=== PATIENT | female | born 1950 | race Caucasian/White ===

== ENCOUNTER 2018-01-25 15:01 | Outpatient (REF) | payer MEDICARE, SELFPAY | END 2018-01-25 15:21 | LOC: LBN 15:01 | PROVIDERS: PCP Nurse Practitioner; Visit Provider Nurse Practitioner | DX: R30.9 Painful micturition, unspecified (principal) | CPT/HCPCS: 87077; 87086; 87186 ==

== ENCOUNTER 2018-02-02 09:09 | Outpatient (CLI) | payer MEDICARE, SELFPAY ==
[2018-02-02 09:28] LABS: HCT 39.8 % (36.0-46.0); HGB 12.9 g/dL (12.0-15.5); Mean Corp. HGB Concentration 32.4 g/dL (32.0-36.0); Mean Corpuscular Hemoglobin 31.1 pg (27.0-33.0); Mean Corpuscular Volume 95.9 fL (80-95); Platelet Count 295 x1000/uL (130-400); RBC 4.15 m/cumm (4.00-5.20); RBC Distribution Width 14.7 % (11.7-14.6); White Blood Cell Count 8.34 k/cumm (4.4-10.8)
[2018-02-02 10:21] LABS: ALT 14 U/L (12-78); AST 15 U/L (15-37); Albumin 3.5 g/dL (3.4-5.0); Alkaline Phosphatase 79 U/L (46-116); Anion Gap 9.5 mmol/L (3-11); BUN 21 mg/dL (7-18); Bilirubin, Total 0.4 mg/dL (0.2-1.0); CO2 25.5 mmol/L (21.0-32.0); CREATININE 1.17 mg/dL (0.55-1.02); Calcium 9.5 mg/dL (8.5-10.1); Chloride 104 mmol/L (98-107); Cholesterol 224 mg/dL (50-200); Glucose 86 mg/dL (70-100); HDL Cholesterol 45 mg/dL (40-60); LDL CHOLESTEROL 160 mg/dL (<100); Potassium 4.1 mmol/L (3.5-5.1); Sodium 139 mmol/L (136-145); Total Protein 7.3 g/dL (6.4-8.2); Triglyceride 132 mg/dL (30-150)
== END 2018-02-02 09:29 ==
PROVIDERS: PCP Nurse Practitioner; Visit Provider Nurse Practitioner
DX: Z72.0 Tobacco use (principal); R79.9 Abnormal finding of blood chemistry, unspecified; R05 Cough; Z13.220 Encounter for screening for lipoid disorders
CPT/HCPCS: 36415; 80053; 80061; 83721; 85027

== ENCOUNTER 2020-11-20 10:55 | Outpatient (CLI) | payer MEDICARE, SELFPAY ==
--- NOTE | 2020-11-20 10:52 | DI.CT_ITS ---
Exam(s) CT HEAD WO EXAM: CT HEAD WO CLINICAL HISTORY: vision CHANGES, memory diff, change in walking, ? CVA,HYPERLIPIDEMIA. TECHNIQUE: Imaging Protocol: Axial computed tomography images with coronal and sagittal reformatted images were created and reviewed COMPARISON: No exams were available for comparison FINDINGS: Ventricles and Extra axial spaces: Normal in size and morphology for the patient's age. Hemorrhage: None. Cerebral parenchyma: 9 millimeter rounded focus centered in the left basal ganglia with significant s urrounding edema and mild [id number] midline shift. Edema extends into the left temporal and andrés etal regions. There is also abnormal edema versus extension of mass into the midbrain on the left is and question of extension into left side of the ramon. No additional masses are seen. There is no e vidence of hemorrhage. There is atrophy and white matter changes of microvascular disease. Calvarium: Normal. Visualized Paranasal sinuses/Mastoids: Clear. Soft Tissues: Unremarkable. IMPRESSION: infiltrative mass centered in the left basal ganglia with edema versus tumor invasion into the midbr ain and ramon. Contrast-enhanced brain MRI is recommended for further evaluation. RADIATION DOSE DELIVERED: 625.34mGy.cm Total DLP DATA REPOSITORY: All CT scans at this facility are submitted to the National Radiology Data Registry (NRDR) Dose Index Registry (DIR) with the [employer] (ACR). RADIATION OPTIMIZATION: All CT scans at this facility use at least one of these dose optimization te chniques: automated exposure control; mA and/or kV adjustment per patient size (includes targeted exa ms where dose is matched to clinical indication); or iterative reconstruction.
== END 2020-11-20 11:15 ==
PROVIDERS: PCP Nurse Practitioner; Visit Provider Nurse Practitioner
DX: E78.5 Hyperlipidemia, unspecified (principal); R29.818 Other symptoms and signs involving the nervous system; Z72.0 Tobacco use; R93.0 Abnormal findings on diagnostic imaging of skull and head, not elsewhere classified
CPT/HCPCS: 70450

== ENCOUNTER 2020-11-20 12:15 | Outpatient (REF) | payer MEDICARE, SELFPAY ==
[2020-11-20 14:19] LABS: Abs Immature Grans 0.03 10^3/uL (0.0-0.06); Absolute Basophil Count 0.09 10^3/uL (0.0-0.2); Absolute Eosinophil Count 0.21 10^3/uL (0.0-0.7); Absolute Lymphocyte Count 1.45 10^3/uL (1.2-3.4); Absolute Monocyte Count 0.52 10^3/uL (0.1-0.8); Absolute Neutrophil Count 6.74 10^3/uL (1.2-6.7); Eosinophils % 2.3; HCT 40.7 % (36.0-46.0); HGB 13.4 g/dL (11.2-15.7); Immature Grans % 0.3; MCH 31.8 pg (27.0-33.0); MCHC 32.9 % (32.0-36.0); MCV 96.4 fL (80-95); Monocytes % 5.8; Neutrophils % 74.6; Nucleated RBC 0 %; Platelet Count 321 10^3/uL (130-400); RBC 4.22 10^6/uL (3.93-5.22); RDW 13.8 % (11.7-14.6); RDW-SD 48.6 fL; WBC 9.04 10^3/uL (4.4-10.8)
[2020-11-20 14:33] LABS: ALT 25 U/L (14-59); AST 21 U/L (15-37); Albumin 3.8 g/dL (3.4-5.0); Alkaline Phosphatase 84 U/L (46-116); Anion Gap 11.4 mmol/L (3-11); BUN 19 mg/dL (7-18); Bilirubin, Total 0.4 mg/dL (0.2-1.0); CO2 26.6 mmol/L (21.0-32.0); CREATININE 1.2 mg/dL (0.55-1.02); Calcium 9.5 mg/dL (8.5-10.1); Calculated LDL 136 mg/dL (<100); Chloride 105 mmol/L (98-107); Cholesterol 214 mg/dL (<200); Estimated GFR 44.29 (mL/min/1.73m2); Glucose 91 mg/dL (74-106); HDL Cholesterol 53 mg/dL (40-60); Potassium 4.4 mmol/L (3.5-5.1); Sodium 143 mmol/L (136-145); Total Protein 7.3 g/dL (6.4-8.2); Triglyceride 127 mg/dL (<150)
== END 2020-11-20 12:16 | disposition home or self-care (01) ==
LOC: LBN 12:15
PROVIDERS: PCP Nurse Practitioner; Visit Provider Nurse Practitioner
DX: R29.818 Other symptoms and signs involving the nervous system; Z13.220 Encounter for screening for lipoid disorders; Z72.0 Tobacco use; E78.5 Hyperlipidemia, unspecified; R31.9 Hematuria, unspecified
CPT/HCPCS: 80053; 80061; 85025; 87086

== ENCOUNTER 2020-12-16 09:36 | Observation (INO) | payer MEDICARE, SELFPAY ==
[2020-12-16] VITALS (61 sets, daily range): BP systolic 71–136; BP diastolic 48–73; PULSE 57–85; RESP 12–43; TEMP 35.9–36.6; O2SAT 85–98
--- NOTE | 2020-12-16 09:30 | RT.EKG_ITS ---
APPROVED REPORT Exam: Resting ECG Reason for Exam: sob, chest pain Patient Location: E HR:77 bpm ECG Measurements Heart Rate 77 AXIS [place] 176 P 74 QRSd 102 QRS 22 QT 367 T 40 QTc 417 Conclusion Sinus rhythm...normal P axis, V-rate 60- 99
--- NOTE | 2020-12-16 09:42 | W.ED.GENAD ---
Discharge Plan Discharge Details Chief Complaint: RespSymp Admit Date/Time: 12/16/20 13:17 Admit Provider: Garret Troy Attending Provider: Garret Troy Primary Care Provider: Stacie Bullock ED Provider: Rosalba Mo Discharge Data Discharge Date/Time-TO BE ENTERED AT DEPARTURE: 12/16/20 14:24 Medical Decision Making Patient is a pleasant 70-year-old female presenting today with chief complaint of right sided upper back pain and shortness of breath. States that she awoke with this this morning. Patient is currently being worked up for recent cancer diagnosis. Plan is for her to start treatment soon. She reports that she is not had pain like this historically. She denies any chest pain. Denies radiation of pain. She denies any dizziness or lightheadedness. Patient denies any abdominal pain. Denies any nausea, vomiting. No change in bowel or urinary habits. She denies any recent fevers or chills. Reports that she has a chronic smoker's cough. Patient is an active smoker. On exam, patient appears acute on chronically ill. She is hypertensive at 92/61. She typically runs low with systolic around 100. She is denying feeling dizzy at this time. She does appear tachycardic. She is maintaining her oxygen well with an O2 of 97% on room air. Her lung sounds are clear. She does not have any crepitus. She has discomfort with palpation along the thoracic spine. More towards the right side than the left. Not appreciate any evidence of acute trauma. No deformity is notable. She is 2+ distal pulses in all extremities. No abdominal pain on exam. Reviewed recent note from [facility]. Patient has been diagnosed with malignant neoplasm of the head, face, neck. Recently had biopsy of the mass on 12/10/20. Patient did reach out to [facility] 2 days ago and reported increased headache after cessation of recent dosing of steroids. Patient was restarted on the steroids and has had 2 days of dosing. Diagnosis differential at this time quite broad. With her recent biopsy, I am considering a pneumothorax and will obtain a bedside x-ray. Also considered COVID-19, patient is not vaccinated. Considered metastatic disease with her midline spinal tenderness. She has good distal pulses, no chest pain, my suspicion for a dissection is lower. With her recent cancer diagnosis and shortness of breath, as well as her being an active smoker, I am also concerned for potential PE. Also considered pneumonia or mass in her lung. Spoke with patients Vidal, [id number]. DAughter was also present. SBP in the 80s, will give IV bolus. With her recent pause of steroids, also considered this part of her hypotension, Will give IV steroids as well. BP responding well. Consulted with radiologist. Patient has bilateral PE. Aortic aneurysm 3.6. Large mass in left mid lung with concerns for areas consistent with metastasis. This was off of the T&L recons, the formal CT of chest has not yet been read. Will send images to [facility] and request consultation with neurosurgery. Patient needs to be anticoagulated but concerned with mass in brain for increased risk for ICH so will consult prior to starting anticoagulation. Updated . Consulted Dr. Schwarz with neurosurgery at [facility]. We discussed presentation, exam, history. He reviewed recent MRI. He advised that recent literature suggest safe to do buttermaker helper anticoagulation. He advised Heparin drip without the load. Bring up to therapeutic level. Advised this would be safest, readily reversible. Discussed risks/benefits and plan with patient. She voices understanding and is in agreement with this plan. in agreement as well. Dr. Schwarz called back. LMWH may be as effective. However, recommends continuing with plan already set forth. Consulted with Dr. Troy regarding admission, he agrees to admission. HPI General Mode of arrival: wheelchair. Date/Time Provider Initiated Documentation: 12/16/20 09:39. Limitations to Documentation: altered mental status (patient has baseline confusion). Information obtained by: patient, family, RN notes reviewed and old records reviewed. History of Present Illness 70 year old F presents to the emergency department with the chief complaint of right sided posterior chest pain, SOB, described as moderate, Quality is described as aching, and is localized to the back (upper back). Patient reports no radiation. Patient started experiencing this hour(s) (awoke with symptoms this AM) and it has been constant. No relieving factors improve symptom(s), Other factors that worsen symptoms (deep inspiration, palpation, movement) . Patient notes confusion (has had confusion for 1mo, no acute change), cough (reports, smokers cough), malaise and shortness of breath; denies chest pain, diaphoresis, fever/chills, headaches (ARMSTRONG improved with beginning steroids again 2 days ago), nausea/vomiting, rash and syncope. Patient did receive the following treatments prior to arrival, none Related Data Home Medications Medication Instructions Recorded Confirmed ibuprofen 800 mg PO PRN 08/23/13 12/16/20 Probio 5 PO ONCE 11/20/20 11/20/20 bio cleanse PO BID 11/20/20 11/20/20 multivitamin 1 tab PO DAILY 11/20/20 12/16/20 naproxen sodium 220 mg capsule 220 mg PO BID PRN 11/20/20 12/16/20 dexamethasone 2 mg PO DAILY 12/16/20 Allergies Allergy/AdvReac Type Severity Reaction Status Date / Time No Known Drug Allergies Allergy Verified 12/16/20 10:18 Review of Systems Constitutional Constitutional: Reports as per HPI, Denies chills and Denies fever(s) ENT Ears, Nose, Mouth, and Throat: Denies dizziness Cardiovascular Cardiovascular: Reports as per HPI, Denies chest pain, Denies lightheadedness, Reports dyspnea and Reports dyspnea on exertion Respiratory Respiratory: Reports as per HPI, Denies chest congestion, Denies hemoptysis, Reports pain on inspiration, Reports pain with cough, Reports dyspnea, Reports dyspnea on exertion and Denies wheezing Gastrointestinal Gastrointestinal: Reports as per HPI, Denies abdominal pain, Denies diarrhea, Denies nausea and Denies vomiting Musculoskeletal Musculoskeletal: Reports as per HPI and Reports back pain Integumentary/Breasts Skin/Breast: Reports as per HPI and Denies rash Neurologic Neurologic: Reports as per HPI and Denies dizziness Allergic/Immunologic Allergic/Immunologic: Denies wheezing [facility] Medical History Hyperlipidemia Neurological deficit present Social History Smoking/Tobacco Use Status: Current every day Tobacco Type: cigarettes Smoking risk assessment performed?: Yes Alcohol Intake: former Drug use: Never Substance use type: does not use Housing: house Working smoke detector in home: Yes Fire extinguisher in home: Yes Carbon monox detector in home: Yes Do you feel safe at home: Yes Do you feel safe in your relationship?: Yes Exam Const General: cooperative, comfortable, well developed, anxious and ill appearing acutely and chronically Nutritional Appearance: average body habitus and well nourished Orientation: alert, awake, oriented x3 and confused (seems intermittent, overall very appropriate) [facility] Mouth: mucous membranes dry (appears dry) Chest Chest: normal inspection of the chest, normal palpation of entire chest wall and no crepitus Resp Effort & Inspection: normal respiratory effort, able to speak in complete sentences and no respiratory distress Auscultation: clear to auscultation bilaterally, no rales, no rhonchi and no wheezes Cardio Rate: regular rate Rhythm: regular rhythm Heart Sounds: S1 normal and S2 normal GI Inspection: normal to inspection, no edema and non-distended Palpation: soft, no hepatosplenomegaly, not firm, no guarding, not rigid and nontender Auscultation: normal bowel sounds Back/Spine/Pelvis Back: no CVA tenderness Thoracic/Lumbar Spine: thoracic and lumbar spine normal to inspection and thoracic spinal tenderness (diffuse discomfort with palpation) Skin General skin exam: no rashes or lesions noted Trauma: no lacerations or abrasions Neuro General: patient alert, patient awake and patient oriented x3 Cognition: normal cognition Speech: speech normal Gait: normal gait Extrem General: normal to inspection, capillary refill normal, no pedal edema, no calf tenderness and normal gait Psych Appearance: grossly normal and well kempt Mental Status: mental status grossly normal Speech and Movement: speech and movement normal
--- NOTE | 2020-12-16 10:00 | DI.CT_ITS ---
Exam(s) CT CHEST PE ABD PELVIS W EXAM: CT CHEST PE ABD PELVIS W CLINICAL HISTORY: right sided back pain, SOB. TECHNIQUE: Imaging Protocol: Axial CT angiography was performed with multi-slice acquisition and m ulti-planar and/or 3D reconstructions. CONTRAST MATERIAL: Intravenous: Omnipaque 350 Contrast volume:100 ml Oral: None COMPARISON: CT ABD PELVIS WITH CONTRAST from 01/14/2012 CR,XR XR PORTABLE CHEST AP from 12/16/2020 CR,XR XR PORTABLE CHEST AP from 12/16/2020 FINDINGS: CHEST: PULMONARY ARTERIES: There are multiple intraluminal filling defects within right lung pulmonary arter ies consistent with pulmonary emboli. The largest of these is in the distal right main pulmonary art sandra. This is not occlusive. No saddle emboli. LUNGS: There is a lobulated malignant-appearing mass extending from the left hilum out to the left up per lobe pleural surface. This corresponds to what was seen on chest x-ray earlier today. There is no pneumothorax (apparently recent biopsy). Mild increased interstitial peripheral infiltrates bilat erally. There are no pleural effusions. No findings in the trachea and mainstem bronchi. MEDIASTINUM: There is left hilar adenopathy and there is adenopathy in the aortopulmonic window. The re also appears to be subcarinal adenopathy. Also mild adenopathy in the right hilum. Visualized th yroid unremarkable. CARDIAC: Heart size is normal. There is no pericardial effusion. There is no significant shift of t he interventricular septum.Caliber of the thoracic aorta is within normal limits. OSSEOUS: No significant osseous lesions.. ABDOMEN: There is no ascites. LIVER: There are no focal hepatic lesions nor dilatation of intrahepatic ducts. GALLBLADDER/BILIARY: No obvious gallbladder pathology. CBD is not dilated. PANCREAS: No evidence of pancreatic mass nor dilatation of the pancreatic duct. SPLEEN: Spleen is not enlarged. There are no intrasplenic lesions. Splenic and portal veins are soliz nt. ADRENALS: There are no significant adrenal masses. KIDNEYS:There is a round 2.4 x 2.4 cm cyst off the inferior pole of the left kidney. A tiny 4 millim eter cortical cyst is noted posteriorly in the right kidney. No solid renal masses. No calculi. No hydronephrosis nor hydroureter. No obvious abnormality in the urinary bladder no calculi nor hydron ephrosis. No solid renal masses. ABDOMINAL AORTA: Atherosclerotic. There is a fusiform infrarenal abdominal aortic aneurysm which exh ibits maximum external diameter of 3.2 cm. Mild arterial megaly evident in the proximal right common iliac artery which exhibits diameter 1.3 cm. There is no dilatation of the distal common iliac haile roya nor of the external iliac arteries and no aneurysms evident in common femoral arteries. LYMPH NODES: There is no retroperitoneal or para-aortic adenopathy. ABDOMINAL WALL/GI: No evidence of significant anterior abdominal wall hernia. No bowel obstruction. PELVIS: LYMPH NODES: There is no intrapelvic nor inguinal adenopathy. GI: No evidence of appendicitis.No evidence of sigmoid diverticulitis. URINARY BLADDER: No calculi nor masses evident REPRODUCTIVE: Uterus and adnexal regions appear age-appropriate. OSSEOUS: No significant osseous lesions. Advanced disc space narrowing at L5-S1 level. Mild retrolisthesis of L1 upon L2. IMPRESSION: 1. There are acute pulmonary emboli noted, mostly right-sided. No evidence of pulmonary infarction. 2. Large malignant-appearing mass in the left lung extending from the hilum out to the left upper lob e pleural surface. This is associated with ipsilateral hilar and aortopulmonic window adenopathy. N o pleural effusion. 3. No evidence of metastatic disease within the abdomen and pelvis nor osseous metastatic disease. 4. 3.2 cm infrarenal abdominal aortic aneurysm. Also mild aneurysmal dilatation of the proximal righ t common iliac artery which exhibits diameter 1.3 cm. 5. Benign 2.4 cm cyst in the inferior pole of the left kidney. RADIATION DOSE DELIVERED: Total DLP DATA REPOSITORY: All CT scans at this facility are submitted to the National Radiology Data Registry (NRDR) Dose Index Registry (DIR) with the [employer] (ACR). RADIATION OPTIMIZATION: All CT scans at this facility use at least one of these dose optimization te chniques: automated exposure control; mA and/or kV adjustment per patient size (includes targeted exa ms where dose is matched to clinical indication); or iterative reconstruction.
[2020-12-16 10:06] LABS: Lactate 1.8 mmol/L (0.6-1.4)
[2020-12-16 10:07] LABS: Abs Immature Grans 0.05 10^3/uL (0.0-0.06); Absolute Basophil Count 0.09 10^3/uL (0.0-0.2); Absolute Eosinophil Count 0.31 10^3/uL (0.0-0.7); Absolute Monocyte Count 0.74 10^3/uL (0.1-0.8); Absolute Neutrophil Count 10.24 10^3/uL (1.2-6.7); Basophils % 0.7; Eosinophils % 2.3; HCT 38.6 % (36.0-46.0); HGB 12.7 g/dL (11.2-15.7); Immature Grans % 0.4; Lymphocytes % 14.6; MCH 32.2 pg (27.0-33.0); MCHC 32.9 % (32.0-36.0); MPV 9.5 fL (8.0-11.0); Monocytes % 5.5; Neutrophils % 76.5; Nucleated RBC 0 %; Platelet Count 266 10^3/uL (130-400); RBC 3.94 10^6/uL (3.93-5.22); RDW 13.7 % (11.7-14.6); RDW-SD 49.4 fL; WBC 13.39 10^3/uL (4.4-10.8)
[2020-12-16 10:10] LABS: Source Nasal/Nares
[2020-12-16 10:10] LABS: Absolute Lymphocyte Count 1.95 10^3/uL (1.2-3.4)
--- NOTE | 2020-12-16 10:18 | DI.RAD_ITS ---
Exam(s) XR PORTABLE CHEST AP EXAM: XR PORTABLE CHEST AP CLINICAL HISTORY: SOB, recent bx of left ,lung. TECHNIQUE: 2D digital imaging was performed. COMPARISON: CR CHEST 2 VIEWS PA,LAT from 11/05/2010 CR LEFT SHOULDER COMPLETE from 09/28/2017 CR LEFT SHOULDER COMPLETE from 09/28/2017 FINDINGS: Chest leads in place. Heart size is normal.. The mediastinum is not widened. Right lung is clear. There is infiltrate in the left parahilar region. No pleural effusion. No pne umothorax. IMPRESSION: Left parahilar infiltrate. Appropriate follow-up recommended. DATA REPOSITORY: RADIATION DOSE DELIVERED: All CT scans at this facility use at least one of these dose optimization techniques: automated exposure control; mA and/or kV adjustment per patient size (includes targeted e xams where dose is matched to clinical indication); or iterative reconstruction.
[2020-12-16 10:21] LABS: PTT Activated 21.2 sec (21.0-27.5); Prothrombin Time 9.9 sec (9.3-11.0)
[2020-12-16] MEDS: Lactated Ringers 1,000 ML 1000 ML IV (10:23)
[2020-12-16 10:24] LABS: ALT 20 U/L (14-59); AST 13 U/L (15-37); Alkaline Phosphatase 131 U/L (46-116); Anion Gap 8.4 mmol/L (3-11); BUN 24 mg/dL (7-18); Bilirubin, Total 0.3 mg/dL (0.2-1.0); CO2 29.6 mmol/L (21.0-32.0); CREATININE 1.2 mg/dL (0.55-1.02); Calcium 9.4 mg/dL (8.5-10.1); Chloride 105 mmol/L (98-107); Estimated GFR 44.29 (mL/min/1.73m2); Glucose 116 mg/dL (74-106); Potassium 3.4 mmol/L (3.5-5.1); Sodium 143 mmol/L (136-145); Total Protein 7.4 g/dL (6.4-8.2); Troponin I < 0.05 ng/mL (<0.06)
--- NOTE | 2020-12-16 10:38 | DI.VRAD_ITS ---
PROCEDURE INFORMATION: Exam: XR Chest Exam date and time: 12/16/2020 9:52 AM Age: 70 years old Clinical indication: Shortness of breath; Patient HX: SOB. Recent left lung biopsy 12/10/20 - RT sided chest pain TECHNIQUE: Imaging protocol: XR of the chest. Views: 1 view. COMPARISON: CR LEFT SHOULDER COMPLETE 28/09/2017 11:27 FINDINGS: Scan quality: Exam is technically satisfactory. Lungs: There is an approximately 3.5 cm somewhat ill-defined nodular density just lateral to the left hilum. Reportedly, this has been recently biopsied. The lungs otherwise show some coarsened interstitial markings especially in the bases but no definite focal infiltrate. Pleural spaces: No pleural effusion or pneumothorax is evident. Heart/Mediastinum: Cardiomediastinal silhouette is normal. Vasculature: Aorta is tortuous. Bones/joints: Unremarkable. IMPRESSION: Left lung mass. No other new acute abnormality. Dictated and Authenticated by: Silver Chauhan MD. Ordering:TERESA Navarrete MD
[2020-12-16 11:03] LABS: COVID-19 PCR Negative (Negative)
[2020-12-16] MEDS: Omnipaque 350 MG/ML 100 ML BTL 94 ML IJ (11:11)
[2020-12-16] MEDS: Normal Saline - Diluent 50 ML VIAL IV (11:11)
[2020-12-16] MEDS: Normal Saline Flush 10 ML SYR IVP ×3 (11:12→19:55)
[2020-12-16] MEDS: methylPREDNISolone SUCC 125 MG VIAL 60 MG IVP (11:15)
--- NOTE | 2020-12-16 12:04 | DI.VRAD_ITS ---
Addendum created by Silver Chauhan MD on 12/16/2020 12:07:09 PM EDT: THIS REPORT CONTAINS FINDINGS THAT MAY BE CRITICAL TO PATIENT CARE. The findings were verbally communicated by me to MUNA ZHU via telephone conference at 12:06 PM EDT on 12/16/2020. The findings were acknowledged and understood. Initial report created on 12/16/2020 12:03:55 PM EDT: PROCEDURE INFORMATION: Exam: CT Thoracic Spine Without Contrast Exam date and time: 12/16/2020 10:37 AM Age: 70 years old Clinical indication: Other: SOB, right back pain, concerned for mets TECHNIQUE: Imaging protocol: Computed tomography images of the thoracic spine without contrast. Radiation optimization: All CT scans at this facility use at least one of these dose optimization techniques: automated exposure control; mA and/or kV adjustment per patient size (includes targeted exams where dose is matched to clinical indication); or iterative reconstruction. COMPARISON: No relevant prior studies available. FINDINGS: Vertebrae: No focal lytic or sclerotic lesions are seen within the vertebral bodies or the posterior elements to suggest bony metastatic disease. Mild disc space narrowing is present at multiple levels. There are anterior osteophytes but no posterior osteophytes impinge upon the spinal canal. In the posterior column facet joints are normally aligned without significant degenerative change. Discs/Spinal canal/Neural foramina: See Vertebrae finding. Soft tissues: There is no paraspinal soft tissue mass. Vasculature: Pulmonary arteries demonstrate filling defects bilaterally consistent with pulmonary embolus. Lungs: The included lungs show a large mass in the left mid lung with hilar adenopathy. IMPRESSION: 1. No evidence of bony metastatic disease to the thoracic spine. 2. Large mass in the left mid lung. 3. Pulmonary arterial filling defects indicative of pulmonary embolus. PROCEDURE INFORMATION: Exam: CT Lumbar Spine Without Contrast Exam date and time: 12/16/2020 10:37 AM Age: 70 years old Clinical indication: Other: SOB, right back pain, concerned for mets TECHNIQUE: Imaging protocol: Computed tomography images of the lumbar spine without contrast. Radiation optimization: All CT scans at this facility use at least one of these dose optimization techniques: automated exposure control; mA and/or kV adjustment per patient size (includes targeted exams where dose is matched to clinical indication); or iterative reconstruction. COMPARISON: No relevant prior studies available. FINDINGS: Vertebrae: Lumbar vertebrae are normal in height and alignment with no fracture. Schmorl's node is noted in the inferior endplate of L1. There are no focal lytic lesions within lumbar vertebrae to suggest bony metastatic disease. Facet joints are normally aligned with moderate degenerative changes. Discs/Spinal canal/Neural foramina: No significant disc protrusion. No severe spinal canal stenosis. No significant neural foraminal narrowing. Sacrum/coccyx: Visualized portion of sacrum and coccyx are normal. SI joints are normal. Soft tissues: Extensive atherosclerotic disease and ectasia of the aorta is present with aneurysmal dilatation to a diameter of 3.4 cm. IMPRESSION: 1. No evidence of metastatic disease to the lumbar spine. 2. Aneurysmal dilatation of the aorta to 3.4 cm. Dictated and Authenticated by: Silver Chauhan MD. Ordering:TERESA Navarrete MD
[2020-12-16] MEDS: ACETAMINOPHEN 1,000 MG/100 ML BTL 400 MG IVPB (12:13)
[2020-12-16 12:18] LABS: Bilirubin Negative (Negative); Blood Trace-intact (Negative); Clarity Clear (Clear); Glucose Negative (Negative); Ketones Negative (Negative); Leukocyte Esterase Negative (Negative); Nitrite Negative (Negative); Specific Gravity 1.015 (1.005-1.025); Urobilinogen 0.2 EU/dL (Up TO 0.2)
--- NOTE | 2020-12-16 12:19 | DI.VRAD_ITS ---
PROCEDURE INFORMATION: Exam: CTA Chest With Contrast Exam date and time: 12/16/2020 10:10 AM Age: 70 years old Clinical indication: Right-sided; Patient HX: RT sided back pain. S/P left lung biopsy 12/10/20. HX brain CA TECHNIQUE: Imaging protocol: Computed tomographic angiography of the chest with contrast. 3D rendering (Not supervised by radiologist): MIP and/or 3D reconstructed images were created by the technologist. Radiation optimization: All CT scans at this facility use at least one of these dose optimization techniques: automated exposure control; mA and/or kV adjustment per patient size (includes targeted exams where dose is matched to clinical indication); or iterative reconstruction. Contrast material: OMNI 350; Contrast volume: 100 ml; Contrast route: INTRAVENOUS (IV); COMPARISON: CR XR PORTABLE CHEST AP 12/16/2020 10:03 FINDINGS: Pulmonary arteries: There are filling defects within multiple pulmonary arteries bilaterally consistent with pulmonary embolus. The largest is at the bifurcation of the right main pulmonary artery. Aorta: Unremarkable. No aortic aneurysm. No aortic dissection. Lungs: In the left mid lung there is a large lobulated mass measuring about 3.4 cm in diameter. Extensive scarring and fibrosis is seen elsewhere throughout both lungs. Pleural spaces: Unremarkable. No pneumothorax. No pleural effusion. Heart: Unremarkable. No cardiomegaly. No pericardial effusion. Lymph nodes: There is extensive adenopathy in the left hilum and AP window with confluent nodes in the AP window measuring 4.5 cm. Bones/joints: Unremarkable. No acute fracture. Soft tissues: Unremarkable. IMPRESSION: 1. There is acute pulmonary embolus bilaterally. 2. There is a 3.4 cm mass in the left mid lung with associated hilar and AP window adenopathy. PROCEDURE INFORMATION: Exam: CT Abdomen And Pelvis With Contrast Exam date and time: 12/16/2020 10:10 AM Age: 70 years old Clinical indication: Right-sided; Patient HX: RT sided back pain. S/P left lung biopsy 12/10/20. HX brain CA TECHNIQUE: Imaging protocol: Computed tomography of the abdomen and pelvis with contrast. Radiation optimization: All CT scans at this facility use at least one of these dose optimization techniques: automated exposure control; mA and/or kV adjustment per patient size (includes targeted exams where dose is matched to clinical indication); or iterative reconstruction. Contrast material: OMNI 350; Contrast volume: 100 ml; Contrast route: INTRAVENOUS (IV); COMPARISON: CR XR PORTABLE CHEST AP 12/16/2020 10:03 FINDINGS: Liver: Normal. No mass or intrahepatic biliary ductal dilatation. Gallbladder and bile ducts: Normal. No calcified stones. No ductal dilation. Pancreas: Normal. No mass or ductal dilation. Spleen: Normal. No splenomegaly. Adrenal glands: Normal. No mass. Kidneys and ureters: Normal. No hydronephrosis, calculus, mass. There is a 2.7 cm cyst at the lower pole of the left kidney. Stomach and bowel: Unremarkable. No significant dilatation or obstruction. No mucosal thickening or visible mass. Appendix: No evidence of appendicitis. Intraperitoneal space: Unremarkable. No free air. No significant fluid collection. Vasculature: Aorta is heavily atherosclerotic with a fusiform aneurysm of the mid aorta measuring 3.4 cm. Lymph nodes: No enlarged retroperitoneal or mesenteric lymph nodes. Urinary bladder: No mass or wall thickening. Reproductive: Unremarkable as visualized. Bones/joints: Unremarkable. No acute fracture. No lytic lesion. Soft tissues: Unremarkable. IMPRESSION: 3.4 cm abdominal aortic aneurysm. No evidence of metastatic disease within the abdomen or pelvis. Findings were discussed by telephone with Dr. Mo at 11:10 a.m. on 12/16/2020. Dictated and Authenticated by: Silver Chauhan MD. Ordering:TERESA Navarrete MD
--- NOTE | 2020-12-16 12:24 | DI.CT_ITS ---
Exam(s) CT THORACIC LUMBAR SPINE REC EXAM: CT THORACIC LUMBAR SPINE REC CLINICAL HISTORY: recons please, concern for mets TECHNIQUE: COMPARISON: CT ABD PELVIS WITH CONTRAST from 01/14/2012 FINDINGS: THORACIC SPINAL COLUMN: There are no compression fractures nor listhesis. No lytic nor blastic osseous lesions identified. LUMBOSACRAL SPINAL COLUMN: There are no compression fractures nor listhesis. Advanced disc space narrowing at L5-S1 level noted . Mild disc space narrowing at L1-2 and mild retrolisthesis of L1 upon L2. Also degenerative disc d isease at T11-T12 and T12-L1 There are no lytic nor blastic osseous lesions identified in the lumbosacral spinal column. There de generative facet changes but no facet malalignment. Mild scoliosis convex left. IMPRESSION: No evidence of osseous metastatic disease in the thoracolumbar spinal column.
[2020-12-16 12:29] LABS: Bacteria Negative HPF (Negative); C & S Indicated? No; Casts Negative LPF (Negative); Crystals Negative HPF (Negative); Epithelial Cells Negative HPF (Negative); Mucus Negative (Negative); WBC 0-2 HPF (0-5)
[2020-12-16 13:34] LABS: Troponin I < 0.05 ng/mL (<0.06)
--- NOTE | 2020-12-16 14:13 | HPE_ITS ---
Date of service: 12/16/20 Time of Service: 14:13 Assessment and Plan Assessment and plan (1) Pulmonary embolism: Status: Chronic Assessment and plan: Unfractionated heparin continuous infusion, monitor for any bleeding. If patient has no acute bleeding or neurologic event from heparinization and will plan for transition to Lovenox therapy with follow-up with her oncologist and neurosurgeon. Qualifiers: Pulmonary embolism type: multiple subsegmental (without acute cor pulmonale) Qualified Code(s): I26.94 - Multiple subsegmental pulmonary emboli without acute cor pulmonale (2) Brain mass: Status: Acute Assessment and plan: patient had been on oral steroids for her brain mass and was tapered off but when she developed recent headaches, she was put back on oral steroids. I will treat her w/ decadron 6 mg iv tonight and put her back on oral steroids (she was on decadron 2 mg orally daily). She does not appear to be on any prophylactic AED. She has no hx of seizures, however she ought to be on prophylaxis. I will initiate Keppra w/ bolus 1000 mg tonight then 500 mg bid beginning tommorrow. (3) Mass of left lung: Status: Acute Assessment and plan: need to get results of recent biopsy form [facility]. she should follow w/ oncology upon discharge who can then manage her anticoagulation in coordination w/ her neurosurgeon. History of Present Illness History of Present Illness Chief Complaint: Left-sided pleuritic chest pain Narrative: 70-year-old female smoker recently diagnosed with lung cancer and found to have brain metastasis presents to emergency department with acute onset of pleuritic chest pain. CT of the chest demonstrated Multiple luminal filling defects in the right lung pulmonary arteries consistent with p ulmonary emboli the largest in the distal right main pulmonary artery with no saddle block emboli and no evidence of right ventricular strain. CT also showed large malignant appearing mass in the left lung extending from the hilum out to the left upper lobe pleural surface with ipsilateral hilar and aortopulmonary window adenopathy. No evidence of metastatic disease within the abdomen or pelvis and no osseous metastatic disease was seen. 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 Dedicated thoracic and lumbar CT scan of the spine was done and showed no ev idence of osseous metastatic disease. ER personnel spoke with Dr. Schwarz from neurosurgery at [facility] to discuss safety of anticoagulation in the setting of brain metastasis. He reviewed the images and discuss case with SAMARA Oliver from [facility] emergency department. He felt the safest course of action be to admit the patient on observation status and heparinize her with unfractionated heparin and if she has no neurologic bleed from this then she can be discharged home on Lovenox. Review of Systems All systems reviewed & are unremarkable except as noted in HPI and below [facility] Medical History Hyperlipidemia Neurological deficit present Social History Smoking/Tobacco Use Status: Current every day Tobacco Type: cigarettes Smoking risk assessment performed?: Yes Alcohol Intake: former Drug use: Never Substance use type: does not use Housing: house Working smoke detector in home: Yes Fire extinguisher in home: Yes Carbon monox detector in home: Yes Do you feel safe at home: Yes Do you feel safe in your relationship?: Yes Meds Allergies and Home Medications Allergies Allergy/AdvReac Type Severity Reaction Status Date / Time No Known Drug Allergies Allergy Verified 12/16/20 10:18 Home Medications Medication Instructions Recorded Confirmed Type ibuprofen 800 mg PO PRN 08/23/13 12/16/20 History Varicella-Zoster Ge/As01b/Pf 50 mcg IM ONCE #1 kit 07/13/17 02/22/18 Clinic [Shingrix Vial Kit] Probio 5 PO ONCE 11/20/20 11/20/20 History bio cleanse PO BID 11/20/20 11/20/20 History multivitamin 1 tab PO DAILY 11/20/20 12/16/20 History naproxen sodium 220 mg capsule 220 mg PO BID PRN 11/20/20 12/16/20 History dexamethasone 2 mg PO DAILY 12/16/20 History Exam Narrative Exam Narrative: Elderly white female who appears to be a poor historian is difficult to get the timing of when her lung biopsy was obtained and the diagnosis of lung cancer was made but apparently this was done through [facility]. I was not able to access records. She is alert and seems to be answering questions appropriately she is able to tell me that the onset of her chest discomfort was around 10 AM this morning. She had trouble sleeping last night went back to sleep early this morning and then woke up mid morning complaining of the chest pain. She has had no fever no chills and no cough. HEENT is remarkable for upper dentures and poor lower dentition. She has no facial asymmetry no dysarthric speech full extraocular motions intact pupils are midpoint and equally reactive to direct and consensual light visual mendez grossly intact Neck is supple no JVD normal carotid pulses no bruits no thyromegaly no cervical lymphadenopathy no supraclavicular adenopathy Lungs are clear with diffusely diminished breath sounds no rhonchi wheezes or rales Heart regular rate and rhythm without murmur rub or gallop. Abdomen soft and nontender no organomegaly no bruits Lower extremities without peripheral cyanosis or edema no calf tenderness or swelling normal pedal pulses no cyanosis. Neuro exam reveals no focal cranial nerve deficits no facial asymmetry no dysarthric speech she has normal facial mimetic muscle movement she has normal movement of her palate and her tongue. Extraocular motions intact. Visual mendez grossly intact. Normal range of motion and strength in both upper and lower extremities. Sensory exam intact to light touch. Results Labs Result diagrams: 12/16/20 10:00 12/16/20 10:00 Labs: Laboratory Results - last 24 hr 12/16/20 12/16/20 12/16/20 10:00 10:00 10:00 WBC 13.39 H RBC 3.94 Hgb 12.7 Hct 38.6 MCV 98.0 H MCH 32.2 MCHC 32.9 RDW 13.7 Plt Count 266 MPV 9.5 Immature Gran % 0.4 Neutrophils % 76.5 Lymphocytes % 14.6 Monocytes % 5.5 Eosinophils % 2.3 Basophils % 0.7 Nucleated RBC % 0 Absolute Neutrophils 10.24 H Absolute Lymphocytes 1.95 Absolute Monocytes 0.74 Absolute Eosinophils 0.31 Absolute Basophils 0.09 PT INR APTT VBG Lactate 1.8 H Sodium 143 Potassium 3.4 L Chloride 105 Carbon Dioxide 29.6 Anion Gap 8.4 BUN 24 H Creatinine 1.2 H Estimated GFR/1.73 m2 44.29 Glucose 116 H Calcium 9.4 Total Bilirubin 0.3 AST 13 L ALT 20 Alkaline Phosphatase 131 H Troponin I < 0.05 Total Protein 7.4 Albumin 3.0 L Urine Color Urine Clarity Urine pH Ur Specific [place] Urine Protein Urine Ketones Urine Blood Urine Nitrite Urine Bilirubin Urine Urobilinogen Ur Leukocyte Esterase Urine RBC Urine WBC Ur Epithelial Cells Urine Crystals Urine Bacteria Urine Casts Urine Mucus Ur Culture Indicated? Urine Glucose COVID-19 Source SARS-CoV-2 (PCR) 12/16/20 12/16/20 12/16/20 10:00 10:07 12:10 WBC RBC Hgb Hct MCV MCH MCHC RDW Plt Count MPV Immature Gran % Neutrophils % Lymphocytes % Monocytes % Eosinophils % Basophils % Nucleated RBC % Absolute Neutrophils Absolute Lymphocytes Absolute Monocytes Absolute Eosinophils Absolute Basophils PT 9.9 INR 1.0 APTT 21.2 VBG Lactate Sodium Potassium Chloride Carbon Dioxide Anion Gap BUN Creatinine Estimated GFR/1.73 m2 Glucose Calcium Total Bilirubin AST ALT Alkaline Phosphatase Troponin I Total Protein Albumin Urine Color Yellow Urine Clarity Clear Urine pH 7.0 Ur Specific [place] 1.015 Urine Protein Negative Urine Ketones Negative Urine Blood Trace-intact H Urine Nitrite Negative Urine Bilirubin Negative Urine Urobilinogen 0.2 Ur Leukocyte Esterase Negative Urine RBC 3-5 H Urine WBC 0-2 Ur Epithelial Cells Negative Urine Crystals Negative Urine Bacteria Negative Urine Casts Negative Urine Mucus Negative Ur Culture Indicated? No Urine Glucose Negative COVID-19 Source Nasal/Nares SARS-CoV-2 (PCR) Negative 12/16/20 13:00 WBC RBC Hgb Hct MCV MCH MCHC RDW Plt Count MPV Immature Gran % Neutrophils % Lymphocytes % Monocytes % Eosinophils % Basophils % Nucleated RBC % Absolute Neutrophils Absolute Lymphocytes Absolute Monocytes Absolute Eosinophils Absolute Basophils PT INR APTT VBG Lactate Sodium Potassium Chloride Carbon Dioxide Anion Gap BUN Creatinine Estimated GFR/1.73 m2 Glucose Calcium Total Bilirubin AST ALT Alkaline Phosphatase Troponin I < 0.05 Total Protein Albumin Urine Color Urine Clarity Urine pH Ur Specific [place] Urine Protein Urine Ketones Urine Blood Urine Nitrite Urine Bilirubin Urine Urobilinogen Ur Leukocyte Esterase Urine RBC Urine WBC Ur Epithelial Cells Urine Crystals Urine Bacteria Urine Casts Urine Mucus Ur Culture Indicated? Urine Glucose COVID-19 Source SARS-CoV-2 (PCR) Last Vital Signs Temp 36.6 C 12/16/20 12:28 Pulse 65 12/16/20 12:28 Resp 20 12/16/20 12:28 BP 106/73 12/16/20 12:28 Pulse Ox 96 12/16/20 12:28
[2020-12-16] MEDS: Dexamethasone 10 MG/ML VIAL IVP (14:56)
--- NOTE | 2020-12-16 18:26 | NUR.NOTE ---
Nursing Note: Spoke with Mirella's this evening, wondering how she is doing. Advised she is settled in her room, not having any pain, ate her dinner and watching TV. transferred to room to talk to her. This nurse ensured she was able to get to the phone.
[2020-12-16] MEDS: levETIRAcetam 1,000 MG in Normal Saline 100 ML 400 MG IVPB (19:53)
[2020-12-16 20:22] LABS: PTT Activated 37.3 sec (21.0-27.5)
[2020-12-17 04:00] VITALS: BP 94/49; PULSE 69; RESP 16; TEMP 35.7; O2SAT 100
[2020-12-17 04:14] LABS: PTT Activated 77.5 sec (21.0-27.5)
[2020-12-17] MEDS: Acetaminophen 325 MG TAB PO ×2 (05:41→15:12)
[2020-12-17 06:57] LABS: HCT 34.5 % (36.0-46.0); HGB 11.5 g/dL (11.2-15.7); MCH 31.8 pg (27.0-33.0); MCHC 33.3 % (32.0-36.0); MCV 95.3 fL (80-95); Platelet Count 255 10^3/uL (130-400); RBC 3.62 10^6/uL (3.93-5.22); RDW 13.7 % (11.7-14.6); RDW-SD 48.6 fL; WBC 10.85 10^3/uL (4.4-10.8)
[2020-12-17 07:45] VITALS: BP 102/64; PULSE 72; RESP 17; TEMP 35.7; O2SAT 98
[2020-12-17] MEDS: Dexamethasone 1 MG TAB 2 MG PO (08:27)
[2020-12-17] MEDS: Multivitamin TAB 1 TAB PO (08:27)
[2020-12-17] MEDS: levETIRAcetam 500 MG TAB PO ×2 (08:27→20:04)
--- NOTE | 2020-12-17 09:35 | DI.US_ITS ---
APPROVED REPORT EXAM: Comprehensive 2D, Doppler, and color-flow Echocardiogram Patient Location: In-Patient Room/Bed: [address] Specialist: Arielle Carmichael RDCS (AE) Indications: PE, Evaluate RV function, Chest pain, Lung CA Other Information Study Quality: Good Conclusion Normal left ventricular chamber size and wall thickness. Estimated ejection fraction is 65 to 70%. There are no segmental wall motion abnormalities Normal right ventricular size and systolic function Both atria are normal in size The aortic valve is trileaflet with trace to mild regurgitation. No aortic stenosis Normal mitral valve with trace regurgitation Normal tricuspid valve with mild regurgitation. Estimated right ventricular systolic pressure is nor mal at 28 mmHg Normal pulmonic valve with trace regurgitation Minimally dilated ascending aorta Wall motion Left Ventricle The left ventricle is normal size. The left ventricular systolic function is normal. The left ventric ular ejection fraction is within the normal range. There is normal left ventricular wall thickness. T here is normal LV segmental wall motion. There is no ventricular septal defect visualized. LVEF is 67 %. Right Ventricle Right ventricle is mildly dilated. The right ventricular systolic function is normal. The RVSP is 28. 1mmHg. Atria The left atrium size is normal. Right atrium is borderline dilated. The interatrial septum is intact with no evidence for an atrial septal defect. Aortic Valve The aortic valve is normal in structure. Aortic valve is trileaflet. There is no aortic valvular sten osis. Trace to mild aortic regurgitation. Mitral Valve The mitral valve is normal in structure. No evidence of mitral valve stenosis. Trace mitral regurgita tion. Tricuspid Valve The tricuspid valve is normal in structure. There is no tricuspid valve stenosis. Mild tricuspid regu rgitation. Pulmonic Valve The pulmonary valve is normal in structure. There is no pulmonic valvular stenosis. Trace pulmonic re gurgitation. Great Vessels The aortic root is normal in size. The ascending aorta is mildly dilated. Aortic arch is not well vis ualized. The IVC collapses <50% with inspiration. Pericardium There is no pericardial effusion. 2D Dimensions IVSD d PLAX 0.91 cm F: 0.6-1.0 LV Vol A2C d MOD 53.2 mL LVPW d PLAX 0.93 cm F: 0.6 - 1.0 LV Vol A4C d MOD 66.2 mL LVID d PLAX 4.33 cm F: 3.8 - 5.2 LA vol/ BSA A2C s A-L 20.7 mL/m2 LVDs 2.60 cm F: 2.2 - 3.5 LA vol/ BSA A4C s A-L 21.5 mL/m2 Ao Root d 2.82 cm F: 2.7 - 3.3 LA Vol/ BSA Biplane s A-L 21.5 mL/m2 RA Area A4C 9.13 cm2 LA Area A4C s MOD 14.72 cm2 RA Vol/ BSA A4C s A-L 11.8 mL/m2 LA Area A2C s MOD 14.14 cm2 Ao Asc Diam d 3.46 cm F: 2.3 - 3.1 LV EF A4C MOD 68.8 % LV EF Teichholz 70.5 % LV EF A2C MOD 65.6 % LVEF (Sim's) 66.29 % F: 54 - 74 LV EF Biplane MOD 66.3 % LV Volume 48.02 mL F: 46 - 106 SV 39.41 mL LV Volume Index 29.64 mL/m2 F: 29 - 61 SV Index 24.25 mL/m2 LV Vol Biplane MOD 59.5 mL FS 39.65 % M-Mode TAPSE 1.89 cm (M/F) >1.7 LV Diastology MV E' medial 0.094 (>0.07 m/s) E/A Ratio 1.1 LV E/e MED 6.20 (<14) MV E Vmax 0.58 (0.4-1.3 m/s) MV E' lateral 0.116 (>0.1 m/s) MV A Vmax 0.55 (0.4-1.3 m/s) LV E/e LAT 5.00 (<14) MV E/A Ratio 1.01 MV E/E' medial 6.21 MV E/E' lateral 5.01 Aortic Valve LVOT Area 2.87 cm2 AoV Area Vmax 2.39 cm2 LVOT Vmax 1.04 m/s AoV Area/ BSA (Vmax) 1.47 cm2/m2 LVOT Mean Tj. 0.63 m/s ANICETO Mean Tj. 2.12 cm2 LVOT Peak Grad 4.3 mmHg ANICETO Mean Tj. Index 1.31 cm2/m2 LVOT Mean Grad 2.0 mmHg AR DT 1650 msec LVOT VTI 0.218 m AR PHT 478 msec LVOT Diam s 1.90 cm AoV Vmax 1.25 m/s Velocity Ratio 0.83 AoV Mean Tj. 0.86 m/s AoV Peak Grad 6.2 mmHg LVOT SV 62.47 mL AoV Mean Grad 3.3 mmHg AoV VTI 0.280 m AoV Area VTI 2.23 cm2 AoV Area/ BSA (VTI) 1.37 cm/m2 Mitral Valve MV DT 242 (160-240 msec) MV PHT 70 msec MV Area PHT 3.13 cm2 MV VTI 0.277 m MV Area VTI 2.26 (4.0-6.0 cm2) Pulmonary Valve PV Vmax 0.80 (0.5-1.5 m/s) RVOT Peak Gr. 1.98 mmHg PV Peak Grad 2.6 mmHg RVOT Mean Gr. 1.10 mmHg PV Mean Grad 1.7 mmHg RVOT VTI 0.164 m PV VTI 0.208 m RVOT Vmax 0.70 m/s Tricuspid Valve TR Peak Grad 20.0 mmHg TR Vmax 2.24 m/s RA Pressure 8.00 mmHg RVSP (TR) 28.1 mmHg
--- NOTE | 2020-12-17 10:50 | DI.CT_ITS ---
Exam(s) CT HEAD WO EXAM: CT HEAD WO CLINICAL HISTORY: s/p fall; hx of brain mets, anticoagulated TECHNIQUE: COMPARISON: CT CT HEAD WO from 11/20/2020 FINDINGS: Patient reportedly has a history of metastatic disease to the brain. Prior CT of November 20 show ed marked edema of the right hemisphere cysts centered in the basal ganglia with a rounded high densi ty lesion thalamus. On today's examination high density lesion thalamus is increased in size, now me asuring about 14 millimeters in diameter as compared to about 9 millimeters in diameter on the prior examination. This is consistent metastatic lesion marked surrounding edema. Areas of edema extend i nto ramon, left temporal frontal lobes, and deform 3rd ventricle with little interval change in degree of surrounding edema in comparison with prior examination. There is moderate generalized cerebral a trophy no evidence of hydrocephalus at this time. Orbital and temporal structures appear intact. Visualized paranasal sinuses and mastoid air cells ar e clear. IMPRESSION: Interval increase in size of presumed left thalamic metastatic lesion since prior examination of Nov. Marked surrounding edema again noted, grossly unchanged, please note that brain MRI woul d be much more sensitive in detecting additional metastatic lesions in this patient. RADIATION DOSE DELIVERED: 657.45mGy.cm Total DLP 34.56mGy CTDIvol RADIATION OPTIMIZATION: All CT scans at this facility use at least one of these dose optimization te chniques: automated exposure control; mA and/or kV adjustment per patient size (includes targeted exa ms where dose is matched to clinical indication); or iterative reconstruction.
[2020-12-17 11:30] VITALS: BP 100/70; PULSE 50; RESP 18; TEMP 36.7; O2SAT 100
[2020-12-17 11:37] LABS: PTT Activated 42.6 sec (21.0-27.5)
--- NOTE | 2020-12-17 11:59 | PDOC.CMIN ---
- If Service Date Differs Date of service: 12/17/20 Time of Service: 11:59 Care Management Initial Assess REASON FOR HOSPITALIZATION:: Pulmonary Embolus PAST MEDICAL HISTORY/PAST SURGICAL HISTORY:: Hyperlipidemia. Neurological deficit present PREVIOUS FUNCTIONAL STATUS/SOCIAL/FAMILY SUPPORTS:: Mirella lives in [facility] with her Gibran. She is independent with her ALD's. Her and her daughter Beba provide her transportation since she no longer drives. She uses a walker and has a cane at home. CURRENT FUNCTIONAL STATUS:: Mirella was sitting up in bed with CM met with her. She shares that she would rather be at home and is anticipating being discharged later today. ADVANCE DIRECTIVES:: HOME Gibran Bazan Has patient been provided with info about the portal/API?: Yes Did the patient sign up for the portal?: No CODE STATUS:: Full Code INSURANCE COVERAGE / FINANCIAL ISSUES:: Medicare CURRENT HOME/COMMUNITY SERVICES/EQUIPMENT:: Uses a walker and has a cane at home. PRIMARY CARE PHYSICIAN:: Stacie Bullock PATIENT/FAMILY EDUCATION NEEDS:: Review discharge instructions, limitations and plan to follow up with community providers. ask me three. ANTICIPATED BARRIERS TO DISCHARGE:: None identified at this time. TRANSPORTATION:: via private vehicle with family. PLAN:: Anticipate Mirella will discharge home with no new services via private vehicle with family, when medically ready. Will follow up with community providers and discharge plan of care as prescribed.
--- NOTE | 2020-12-17 16:02 | W.PM.PROGNOT ---
Date of Service Date of service: 12/17/20 Time of Service: 16:02 Assessment and Plan Assessment and plan (1) Pulmonary embolism: Status: Chronic Assessment and plan: dc UFH and begin lovenox 1mg/kg SC Q12h beginning tonight w/ nursing to teach family and HH/nursing to follow patient at home. Qualifiers: Pulmonary embolism type: multiple subsegmental (without acute cor pulmonale) Qualified Code(s): I26.94 - Multiple subsegmental pulmonary emboli without acute cor pulmonale (2) Brain mass: Status: Acute Assessment and plan: continue decadron as per her home dose. Family is concerned that she only has 4 days left. I recommend that they check w/ her oncologist to see how long they want her to remain on this. Given her brain edema I assume that she will remain on decadron until she can have definitive radiation treatment. Also she was not on an AED for seizure prevention. I loaded her w/ Keppra 1000 mg iv last night and began her on Keppra 500 mg bid for prophylaxis against seizures. (3) Mass of left lung: Status: Acute Assessment and plan: patient needs follow up w/ oncology upon discharge to decide on definitive treatment. Subjective Subjective Interval history since last seen: Patient is doing better today. No chest pain nor any dyspnea even w/ ambulation around the nursing unit this afternoon. I have asked nursing to review w/ the patient and her family peforming lovenox shots. Mera, her nurse this afternoon indicated that Mirella does not comprehend giving her own shots but that her daughter is willling to give them to her mother. Her daughter is unvaccinated against SARS-COV2 and therefore can not come into the hospital to receive training but nursing is willing to meet her outside the hospital upon discharge to review giving the shots. As it was late in the afternoon, there was not time for nursing to perform this. We will plan for discharge tomorrow when nursing can go over this w/ the daughter in person. We should also plan for home health, nursing to come into the home to continue educating the family about lovenox. Last night the patient had a witnessed fall w/out loss of consciousness, this was not reported to me at moring sign out. I learned about this from nursing. There was no head injury. Nevetheless, I ordered a CT scan of the head w/out contrast given her heparinization and having a brain metastasis. This CT demonstrated the following: IMPRESSION: Interval increase in size of presumed left thalamic metastatic lesion since prior examination of November 20. Marked surrounding edema again noted, grossly unchanged, please note that brain MRI would be much more sensitive in detecting additional metastatic lesions in this patient. Exam Narrative Exam Narrative: Elderly white female who is pleasant but confused; she knows that she is in the hospital but is unable to relate much else to her history. She denies any CP or dyspnea nor any headaches HEENT: no trauma to the head Lungs: clear Heart: RRR Abdomen: soft and nontender and nondistended Extremities: no edema or calf swelling or pain Objective Last Vital Signs Temp 36.7 C 12/17/20 11:30 Pulse 50 L 12/17/20 11:30 Resp 18 12/17/20 11:30 BP 100/70 12/17/20 11:30 Pulse Ox 100 12/17/20 11:30 Laboratory Results - last 24 hr 12/16/20 12/17/20 12/17/20 19:52 03:30 06:37 WBC 10.85 H RBC 3.62 L Hgb 11.5 Hct 34.5 L MCV 95.3 H MCH 31.8 MCHC 33.3 RDW 13.7 Plt Count 255 MPV 10.0 APTT 37.3 H D 77.5 H D 12/17/20 11:15 WBC RBC Hgb Hct MCV MCH MCHC RDW Plt Count MPV APTT 42.6 H D
[2020-12-17] MEDS: Enoxaparin 60 MG/0.6 ML SYR SC (20:04)
[2020-12-17] MEDS: Normal Saline Flush 10 ML SYR IVP (20:10)
--- NOTE | 2020-12-17 20:29 | NUR.NOTE ---
This credit underwriter stopped the hanging bag of heparin which was running at 900 units/hour at 2004. Also at said time, this credit underwriter did education with the patient on self-administering lovenox shots. The patient verbalized understanding and reinforcement is suggested.
[2020-12-17 23:33] VITALS: BP 94/54; PULSE 51; RESP 14; TEMP 36.4; O2SAT 98
[2020-12-18 07:05] VITALS: BP 98/60; PULSE 65; RESP 17; TEMP 36; O2SAT 99
[2020-12-18 07:34] LABS: HCT 39.6 % (36.0-46.0); HGB 12.8 g/dL (11.2-15.7); MCHC 32.3 % (32.0-36.0); MPV 10.4 fL (8.0-11.0); Platelet Count 310 10^3/uL (130-400); RDW 13.8 % (11.7-14.6); RDW-SD 50.7 fL; WBC 10.78 10^3/uL (4.4-10.8)
[2020-12-18] MEDS: Enoxaparin 60 MG/0.6 ML SYR SC (08:19)
[2020-12-18] MEDS: levETIRAcetam 500 MG TAB PO (08:19)
[2020-12-18] MEDS: Dexamethasone 1 MG TAB 2 MG PO (08:19)
[2020-12-18] MEDS: Multivitamin TAB 1 TAB PO (08:19)
[2020-12-18] MEDS: Acetaminophen 325 MG TAB PO (10:02)
--- NOTE | 2020-12-18 12:09 | W.NUTRFU ---
Date of service: 12/18/20 Time of Service: 12:10 Nutritional Follow up NOTE: PO intake is excellent. Weight is stable. BMI is 21.1 kg/m2 which is WNL. No nutritional issues noted at this time. Will continue to follow progress. Time Spent in Nutritional Counseling and Treatment: 0
--- NOTE | 2020-12-18 14:24 | DSE_ITS ---
Date of service: 12/18/20 Time of Service: 14:24 DS: Diagnosis Discharge Diagnosis (1) Pulmonary embolism: Status: Acute (2) Brain mass: Status: Acute (3) Mass of left lung: Status: Acute (4) Dysarthria: Status: Chronic (5) COVID-19 ruled out by laboratory testing: Status: Ruled-out Discharge Plan Disposition Patient Disposition: HOME W/HOME HEALTH SERVICE Condition: Fair Discharge Details Reason For Visit: Pulmonary Embolus Admit Date/Time: 12/16/20 13:17 Admit Provider: Garret Troy Attending Provider: Garret Troy Primary Care Provider: Stacie Bullock Hospital Course Hospital Course: Ms Bazan is a 70 year old female with PMHx of a left basal ganglial mass, left lung nodule, hyperlipidemia, tobacco abuse, who was a patient on [facility] hospitalist service from 12/16/20 until 12/18/20 for acute pulmonary embolism, having presented with pleuritic chest pain. The patient's case was discussed with [facility] neurology, who recommended initiation of heparin gtt without bolus for her PE. R heart strain was ruled out with an echo. The patient was switched to SC lovenox and is being dicsharged home today with new home health RN/PT. She was initiated on prophylactic keppra and continued on her dexamethasone on this admission. She has been hemodynamically stable. She will need to follow up with [facility] oncology as well as neurosurgery. Care for patient as well as completion of her discharge summary on day of discharge took 45 minutes. Home Meds and New Rx's Prescriptions: New levetiracetam 500 mg Tablet 500 mg PO BID Qty: 60 RF: 0 enoxaparin 60 mg/0.6 mL Syringe 60 mg subcut Q12H Qty: 12 RF: 0 Continued bio cleanse PO BID RF: 0 Probio 5 PO ONCE RF: 0 multivitamin Tablet 1 tab PO DAILY RF: 0 Varicella-Zoster Ge/As01b/Pf [Shingrix Vial Kit] 50 MCG INJ 50 mcg IM ONCE Qty: 1 RF: 1 dexamethasone 2 mg tablet 2 mg PO DAILY Qty: 30 RF: 0 Discontinued naproxen sodium 220 mg capsule 220 mg PO BID PRNRF: 0 ibuprofen 200 MG tablet 800 mg PO PRN RF: 0 Discharge Instructions Instructions: Enoxaparin (By injection), Pulmonary Embolism (DC) Additional Instructions: Return to the hospital with any new neurological deficits, unusual headache, chest pain, shortness of breath, if you are coughing up blood or bleeding in any other way, or if you develop a fever. Follow up with [facility] oncology as well as neurosurgery. Stand Alone Forms: Nursing Discharge Form Referrals: HEMATOLOGY/ONC,[facility] [OTHER] - NEUROSURGERY,[facility] [OTHER] - Stacie Bullock NP [Primary Care Provider] - 12/25/20 3:15 am Activity:: Activity as Tolerated Equipment/Supplies:: No Equipment Needed Diet:: As Tolerated Discharge Orders Discharge Orders: Discharge Order (Routine); Ordered 12/18/20 Ordered By: Belen Hinkle DS: Summary Time Spent with Patient providing and/or coordinating discharge services: Greater than 30 minutes Status at Discharge Functional status at discharge: independent ambulation Overall status at discharge: patient is progressing back to baseline Mental Status: mental status grossly normal Speech and Movement: other (slightly dysarthric speech) Mood: congruent mood Affect: normal affect Exam Narrative Exam Narrative: General: Pleasant elderly female who is having a word- finding deficit, A&ox2 HEENT: EOMI, MMM Heart: RRR, no m/r/g Lungs: CTAB Abdomen: soft, nontender, nondistended Extremities: no edema BLE's Psych Mental Status: mental status grossly normal Speech and Movement: other (slightly dysarthric speech) Mood: congruent mood Affect: normal affect DS: Data Vitals/I&O Vitals and I&O: Vital Signs Temperature 36.0 C L 12/18/20 07:05 Temperature Source Tympanic 12/18/20 07:05 Pulse 65 12/18/20 07:05 Pulse Rhythm Regular 12/18/20 08:30 Pulse 57 L 12/16/20 14:10 Respiratory Rate 17 12/18/20 07:05 Respiratory Effort Non-Labored 12/18/20 08:30 Respiratory Depth Normal 12/18/20 08:30 Respiratory Pattern Normal 12/18/20 08:30 Blood Pressure 98/60 L 12/18/20 07:05 Blood Pressure Mean 73 12/16/20 12:27 Blood Pressure Position Sitting 12/16/20 09:43 Pulse Oximetry 99 12/18/20 07:05 Oxygen Delivery Method Room Air 12/18/20 07:05 Oxygen Flow Rate 0 10/12/21 07:05 Pain Level 5 12/18/20 10:02 Comment 12/18/20 07:05 Intake & Output 12/17/20 12/18/20 12/18/20 23:59 11:59 23:59 Intake Total 323.467 / 417.667 130 / 250 120 / 250 Output Total 400 / 700 1500 / 1700 200 / 1700 Balance -76.533 / -282.333 -1370 / -1450 -80 / -1450 Weight 57.6 kg Intake: IV 83.467 / 177.667 Oral 240 / 240 120 / 240 120 / 240 Output: Urine 400 / 700 1500 / 1700 200 / 1700 Other: Urine Color Pale Yellow Yellow Urine Appearance Clear Clear Clear Urine Odor None Normal Comment urine was in hat in toliet from overnight. Voiding Methods Bedside Commode Toilet Toilet Data Completed and Pending Completed studies during hospitalization [Text1]: CT chest/abdomen/pelvis w/ contrast: 1. There are acute pulmonary emboli noted, mostly right-sided. No evidence of pulmonary infarction. 2. Large malignant-appearing mass in the left lung extending from the hilum out to the left upper lobe pleural surface. This is associated with ipsilateral hilar and aortopulmonic window adenopathy. No pleural effusion. 3. No evidence of metastatic disease within the abdomen and pelvis nor osseous metastatic disease. 4. 3.2 cm infrarenal abdominal aortic aneurysm. Also mild aneurysmal dilatation of the proximal right common iliac artery which exhibits diameter 1.3 cm. 5. Benign 2.4 cm cyst in the inferior pole of the left kidney. CXR: Left parahilar infiltrate. Appropriate follow-up recommended. CT thoracic/lumbar spine: No evidence of osseous metastatic disease in the thoracolumbar spinal column. Echo: Normal left ventricular chamber size and wall thickness. Estimated ejection fraction is 65 to 70%. There are no segmental wall motion abnormalities Normal right ventricular size and systolic function Both atria are normal in size The aortic valve is trileaflet with trace to mild regurgitation. No aortic stenosis Normal mitral valve with trace regurgitation Normal tricuspid valve with mild regurgitation. Estimated right ventricular systolic pressure is normal at 28 mmHg Normal pulmonic valve with trace regurgitation Minimally dilated ascending aorta CT head w/o contrast: Interval increase in size of presumed left thalamic metastatic lesion since prior examination of November 20. Marked surrounding edema again noted, grossly unchanged, please note that brain MRI would be much more sensitive in detecting additional metastatic lesions in this patient. Labs on day of discharge: Labs from last 24 hours 12/18/20 12/18/20 06:28 06:28 WBC 10.78 RBC 4.00 Hgb 12.8 Hct 39.6 MCV 99.0 H D MCH 32.0 MCHC 32.3 RDW 13.8 Plt Count 310 MPV 10.4 APTT 23.0 PFSH Medical History Hyperlipidemia Neurological deficit present Social History Smoking/Tobacco Use Status: Current every day Tobacco Type: cigarettes Smoking risk assessment performed?: Yes Alcohol Intake: former Drug use: Never Substance use type: does not use Housing: house Working smoke detector in home: Yes Fire extinguisher in home: Yes Carbon monox detector in home: Yes Do you feel safe at home: Yes Do you feel safe in your relationship?: Yes
--- NOTE | 2020-12-18 14:41 | PDOC.HHF2F_ITS ---
Home Health Certification Home Health Certification: 1. Encounter Date and Reason I certify that Mirella Bazan was seen by Belen Hinkle on 12/18/20 and that I had a nudr-ln-oell encounter with this patient that meets the physician face to face encounter requirements. 2. Clinical Findings Supporting Skilled Need and Homebound Status I certify that home health services are medically necessary, include either intermittent senior living and/or physical/speech therapy, and that this patie nt is homebound in that absences from the home require considerable and taxing effort and are infrequent or of short duration, or are attributable to the need to receive medical care. [X] (a) Attached documentation from encounter provides clinical findings supporting skilled need and homebound status (including what assistance patient requires to leave the home). The encounter with the patient was in whole, or in part, for the following medical condition, which is the primary reason for home health care: Pulmonary Embolus Half-Way: patient with a brain mass, new PE, being initiated on lovenox on discharge Physical Therapy: eval and treat Homebound: unable to leave home without assistance 3. Certification and Authentication I certify that I composed the above information based on my clinical judgement relating to this patient's medical condition and, if applicable, clinical findings communicated to me by the NPP or inpatient physician who performed the Home Health Referral. All further orders will be obtained through Stacie Bullock (Community Based Physician - PCP)
--- NOTE | 2020-12-18 15:02 | CHAPLAIN ---
Mirella was dress and waiting to be discharged when I visited this morning. She was pleasant and looking forward to being discharged.
--- NOTE | 2020-12-18 15:20 | PDOC.CMDIS ---
- If Service Date Differs Date of service: 12/18/20 Time of Service: 15:20 LACE Index Scoring Tool - Questions: Length of Stay (in days): 2 Acuity (Admit via E.D.?): Yes E.D. Visits: 11 - Answers: Total Score: 9 Risk of Readmission: Low Risk Care Management Discharge Reason for Hospitalization: Pulmonary Embolus Discharge Plan: Discharge home with daughter Beba via private vehicle with New [facility] SN/PT. CM notified [facility]. Follow up with community providers and discharge plan of care as prescribed. Patient/Family Education Needs: Review discharge instructions, lovenox teaching, limitations and plan to follow up with community providers. ask me three Services Needed at Discharge: Home Health Care Services (H SN/PT)
== END 2020-12-18 15:12 | disposition home health service (06) ==
LOC: ER 14:09 → MS 14:28
PROVIDERS: General Practice; Admitting Provider Internal Medicine; Emergency Provider Physician Assistant; PCP Nurse Practitioner; Visit Provider Internal Medicine
DX: I26.94 Multiple subsegmental thrombotic pulmonary emboli without acute cor pulmonale (principal); Z20.822 Contact with and (suspected) exposure to COVID-19; F17.210 Nicotine dependence, cigarettes, uncomplicated; C34.92 Malignant neoplasm of unspecified part of left bronchus or lung; C79.31 Secondary malignant neoplasm of brain; I71.4 Abdominal aortic aneurysm, without rupture; E78.5 Hyperlipidemia, unspecified; R47.1 Dysarthria and anarthria
CPT/HCPCS: 36415; 71275; 74177; 80053; 85027; 87635; 93005; 93306; 96361; 96365; 96366; 96375; 99285; 70450; 71045; 81003; 81015; 83605; 84484; 85025; 85610; 85730; 93010; 99217; 99220; 99225; G0378; J0131; J1100; J1650; J1953; J2930; J3490; J8540

== ENCOUNTER 2021-01-10 02:02 | Outpatient (CLI) | payer MEDICARE, SELFPAY ==
[2021-01-10] MEDS: Normal Saline Flush 10 ML SYR IVP (14:43)
[2021-01-10] MEDS: Gadoterate meglumine 20 ML VIAL 11 ML IVP (14:43)
--- NOTE | 2021-01-10 15:15 | DI.MRI_ITS ---
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 TECHNIQUE: Multiplanar multisequence MRI of the brain was performed. CONTRAST MATERIAL: IV Contrast: 11 ML of Dotarem contrast administered. FINDINGS: VENTRICLES AND EXTRA AXIAL SPACES: Normal in size and morphology for the patient's age. HEMORRHAGE: None. CEREBRAL PARENCHYMA: Interval increase in size of previously noted left the thalamic metastasis, now measuring 1.8 cm transverse by 1.7 cm AP by 1.8 cm cephalo caudad. There is again in significant vicki rounding edema extending inferiorly in to the level of the left cerebral peduncle as well extension t o the level of the temporal and parietal lobes. Mildly increased [id number] midline shift no of 7 millimeters. No additional enhancing masses are seen. Multiple foci of high signal in both cerebra l hemispheres consistent with chronic microvascular disease, stable. CALVARIUM: Normal. ENHANCEMENT: No suspicious meningeal enhancement identified. VISUALIZED PARANASAL SINUSES/MASTOIDS: Clear. OTHER FINDINGS: Vascular flow voids are intact. Globes unremarkable. IMPRESSION: Interval increase in size of left thalamic metastasis again with significant surrounding white matter edema and mildly increasing midline shift. No new metastatic lesion. DATA REPOSITORY:
== END 2021-01-10 02:22 ==
PROVIDERS: PCP Nurse Practitioner; Visit Provider Radiology Radiation Oncology
DX: C79.31 Secondary malignant neoplasm of brain (principal)
CPT/HCPCS: 70553

== ENCOUNTER 2021-01-13 08:37 | Emergency (ER) | payer MEDICARE, SELFPAY ==
[2021-01-13 08:45] VITALS: BP 102/54; PULSE 77; RESP 18; TEMP 35.8; O2SAT 94
--- NOTE | 2021-01-13 08:54 | ED.GENADUL_ITS ---
Discharge Plan Disposition Patient Disposition: HOME Condition: Stable Discharge Details Clinical Impression: Fall, Blunt injury of back, Blunt abdominal trauma, Contusion of bone Primary Care Provider: Stacie Bullock ED Provider: Phillip Dubois Home Meds and New Rx's Prescriptions: Continued bio cleanse PO BID RF: 0 Probio 5 PO ONCE RF: 0 multivitamin Tablet 1 tab PO DAILY RF: 0 clindamycin HCl 150 mg capsule 150 mg PO TID RF: 0 Varicella-Zoster Ge/As01b/Pf [Shingrix Vial Kit] 50 MCG INJ 50 mcg IM ONCE Qty: 1 RF: 1 enoxaparin 60 mg/0.6 mL syringe 60 mg subcut Q12H Qty: 12 RF: 1 enoxaparin 30 mg/0.3 mL syringe 60 mg subcut Q12H Qty: 3 RF: 0 levetiracetam 500 mg Tablet 500 mg PO BID Qty: 60 RF: 0 dexamethasone 2 mg tablet 2 mg PO DAILY Qty: 30 RF: 0 Discharge Instructions Instructions: Contusion in Adults (ED) Additional Instructions: your cat scans did not show any concerning findings, no broken bones you can take 1000mg tylenol every 6 hours as needed and use lidocaine patches if you still have pain this week see your primary care provider if you feel more ill or have severe worsening pain return to the emergency department Medical Decision Making 70 yo female with hx of brain mass and hospitalized in december after being found to have a PE and is on lovenox and comes in with right sided back pain s/p fall. She woke up feeling well and while getting dress fell on her right back. She denies loc and has no head pain, neck pain, chest pain. She has mild right lower abdomen tenderness and pain in the right lower back. no stepoffs and no signs of trauma to the head, has a contusion of right lower back. No pain in the extremities. Suspect contusion vs hematoma but given degree of pain will obtain ct to evaluate for traumatic intrabdominal hematoma vs fracture pt feels better no new symptoms, imaging and labs show no concerning findings. Suspect bone contusion, will have her continue lidocaine patch and tylenol and advised to f/u with pcp if pain continues this week and if worsening Differential Diagnosis Differential Diagnosis: fracture, contusion, hematoma Medical Records Medical records reviewed: Yes I reviewed the patient's medical records. Imaging Data Radiologic Study: Attestation: I personally reviewed and interpreted this imaging study as follows: Imaging: CT Scan Radiologist's impression: PROCEDURE INFORMATION: Exam: CT Abdomen And Pelvis Without Contrast Exam date and time: 01/13/2021 9:17 AM Age: 70 years old Clinical indication: Injury or trauma; Blunt; Rlq; Injury date: 01/13/21; Injury details: Fall/rt sided pain TECHNIQUE: Imaging protocol: Computed tomography of the abdomen and pelvis without contrast. Radiation optimization: All CT scans at this facility use at least one of these dose optimization techniques: automated exposure control; mA and/or kV adjustment per patient size (includes targeted exams where dose is matched to clinical indication); or iterative reconstruction. COMPARISON: CT CHEST PE ABD PELVIS W 12/16/2020 10:45 AM FINDINGS: Limitations: None. Lungs: Dependent interstitial thickening without dense consolidation. Heart: Atherosclerotic changes of the coronary arteries. Tiny amount of anterior inferior pericardial fluid or thickening. Diaphragm: Tiny hiatal hernia. Liver: Normal. No mass. Gallbladder and bile ducts: Normal. No calcified stones. No ductal dilation. Pancreas: Normal. No ductal dilation. Spleen: Normal. No splenomegaly. Adrenal glands: Normal. No mass. Kidneys and ureters: No renal stones or hydronephrosis. Stomach and bowel: No bowel obstruction. Poor distension of the stomach. Moderate retained stool in the colon. Appendix: No evidence of acute appendicitis. Intraperitoneal space: No free air or free fluid. Vasculature: Moderate atherosclerotic changes of the aorta extending into the mesenteric, renal, iliac arteries with mild dilatation of the aorta to 3.4 cm. Lymph nodes: Unremarkable. No enlarged lymph nodes. Urinary bladder: Unremarkable as visualized. Reproductive: I believe the uterus is absent. Bones/joints: Degenerative changes in the regional skeleton without acute fracture. Minimal scoliosis. No displaced fracture. Soft tissues: No significant subcutaneous hematoma. Other findings: Limited noncontrast exam. IMPRESSION: 1. No acute abnormality. 2. Postoperative changes. 3. Abdominal aortic aneurysm which be followed with CT or ultrasound in 1 year. 4. Limited noncontrast exam Radiologic Study #2: Attestation: I personally reviewed and interpreted this imaging study as follows: Imaging: X-Ray Radiologist's impression: PROCEDURE INFORMATION: Exam: CT Lumbar Spine Without Contrast Exam date and time: 01/13/2021 9:22 AM Age: 70 years old Clinical indication: Injury or trauma; Blunt trauma (contusions or hematomas); Injury date: 01/13/21; Injury details: Fall/pain TECHNIQUE: Imaging protocol: Computed tomography images of the lumbar spine without contrast. Radiation optimization: All CT scans at this facility use at least one of these dose optimization techniques: automated exposure control; mA and/or kV adjustment per patient size (includes targeted exams where dose is matched to clinical indication); or iterative reconstruction. COMPARISON: CT THORACIC LUMBAR SPINE REC 12/16/2020 10:45 AM FINDINGS: Vertebrae: The non spinal elements are evaluated separately today. Osteopenia and degenerative changes with limited listhese which are likely degenerative. No acute fracture line, high-grade compression deformity, or worrisome malalignment. . Epidural space: No epidural fluid. Sacrum/coccyx: Symmetric SI joints. Soft tissues: No paraspinal mass or hematoma. Disc spaces: No high-grade central stenosis. Multilevel bulging discs. IMPRESSION: Degenerative changes without acute fracture line. If concern persists consider MRI. Lab Data Lab results reviewed: Yes I reviewed the patient's lab results. HPI General Mode of arrival: ambulatory . Date/Time Provider Initiated Documentation: 01/13/21 08:40 . Limitations to Documentation: no limitations . Information obtained by: patient . History of Present Illness 70 year old F presents to the emergency department with the chief complaint of low back pain, described as moderate, Patient started experiencing this hour(s) (1) and it has been constant. No relieving factors improve symptom(s), No exacerbating factors reported . Patient notes no other symptoms.. Patient did receive the following treatments prior to arrival, none Related Data Home Medications Medication Instructions Recorded Confirmed Probio 5 PO ONCE 11/20/20 12/25/20 bio cleanse PO BID 11/20/20 12/25/20 multivitamin 1 tab PO DAILY 11/20/20 01/13/21 dexamethasone 2 mg PO DAILY #30 tab 12/18/20 01/13/21 levetiracetam 500 mg PO BID #60 tab 12/18/20 01/13/21 clindamycin HCl 150 mg capsule 150 mg PO TID 12/25/20 01/13/21 enoxaparin 60 mg/0.6 mL 60 mg SUBCUT Q12H #12 ml 10/22/21 11/07/21 subcutaneous syringe enoxaparin 30 mg/0.3 mL 60 mg SUBCUT Q12H #3 ml 12/31/20 01/13/21 subcutaneous syringe Previous Rx's Medication Instructions Recorded dexamethasone 2 mg PO DAILY #30 tab 12/18/20 levetiracetam 500 mg PO BID #60 tab 12/18/20 enoxaparin 60 mg/0.6 mL 60 mg SUBCUT Q12H #12 ml 12/28/20 subcutaneous syringe enoxaparin 30 mg/0.3 mL 60 mg SUBCUT Q12H #3 ml 12/31/20 subcutaneous syringe Allergies Allergy/AdvReac Type Severity Reaction Status Date / Time No Known Drug Allergies Allergy Verified 01/13/21 08:49 General Stated Complaint: Nk/Back Pain SHARON: 4 Review of Systems All systems reviewed & are unremarkable except as noted in HPI and below Constitutional Constitutional: Denies chills, Denies fever(s) and Denies weakness Cardiovascular Cardiovascular: Denies chest pain and Denies dyspnea Respiratory Respiratory: Denies cough and Denies dyspnea Gastrointestinal Gastrointestinal: Denies abdominal pain, Denies nausea and Denies vomiting Musculoskeletal Musculoskeletal: Denies joint swelling Neurologic Neurologic: Denies weakness Psychiatric Psychiatric: Denies depression PFSH Medical History Hyperlipidemia Neurological deficit present Social History Smoking/Tobacco Use Status: Former Tobacco Use Smoking risk assessment performed?: Yes Alcohol Intake: former Drug use: Never Substance use type: does not use Housing: house Working smoke detector in home: Yes Fire extinguisher in home: Yes Carbon monox detector in home: Yes Do you feel safe at home: Yes Do you feel safe in your relationship?: Yes Exam Const General: no acute distress Orientation: alert HENMT Head: normal to inspection Ears: external ears normal General nose exam: external nose normal Mouth: moist mucous membranes Eyes General: appearance normal, both eyes and all related structures Neck Neck: normal visual inspection Resp Effort & Inspection: normal respiratory effort and able to speak in complete sentences Cardio Rate: regular rate Back/Spine/Pelvis Back: no CVA tenderness Skin General skin exam: no rashes or lesions noted Neuro General: patient alert and patient oriented x3 Extrem General: normal to inspection Psych Mental Status: mental status grossly normal Course Vital Signs Vital signs: Vital Signs Temperature 35.8 C L 01/13/21 08:45 Pulse 77 01/13/21 08:45 Respiratory Rate 18 01/13/21 08:45 Blood Pressure 102/54 L 01/13/21 08:45 Pulse Oximetry 94 01/13/21 08:45 Temperature 35.8 C L 01/13/21 08:45 Temperature Source Temporal Artery Scan 01/13/21 08:45 Pulse 77 01/13/21 08:45 Respiratory Rate 18 01/13/21 08:45 Respiratory Effort Non-Labored 01/13/21 08:50 Blood Pressure 102/54 L 01/13/21 08:45 Blood Pressure Position Sitting 01/13/21 08:45 Pulse Oximetry 94 01/13/21 08:45 Oxygen Delivery Method Room Air 01/13/21 08:45 Oxygen Flow Rate 0 01/13/21 08:45 Pain Level 0 01/13/21 08:50
[2021-01-13] MEDS: Lidocaine 5% Patch 1 PATCH TP (09:13)
[2021-01-13] MEDS: Acetaminophen 500 MG TAB 1000 MG PO (09:13)
[2021-01-13 09:14] LABS: Abs Immature Grans 0.05 10^3/uL (0.0-0.06); Absolute Basophil Count 0.06 10^3/uL (0.0-0.2); Absolute Eosinophil Count 0.38 10^3/uL (0.0-0.7); Absolute Lymphocyte Count 3.77 10^3/uL (1.2-3.4); Basophils % 0.5; Eosinophils % 3.2; HCT 40.9 % (36.0-46.0); HGB 13.3 g/dL (11.2-15.7); Immature Grans % 0.4; MCH 31.7 pg (27.0-33.0); MCHC 32.5 % (32.0-36.0); MCV 97.4 fL (80-95); MPV 9.9 fL (8.0-11.0); Monocytes % 4.7; Neutrophils % 59.2; Nucleated RBC 0 %; Platelet Count 257 10^3/uL (130-400); RDW 14.6 % (11.7-14.6); RDW-SD 52.3 fL; WBC 11.79 10^3/uL (4.4-10.8)
[2021-01-13 09:16] LABS: Absolute Monocyte Count 0.55 10^3/uL (0.1-0.8); Absolute Neutrophil Count 6.98 10^3/uL (1.2-6.7)
[2021-01-13 09:33] LABS: ALT 31 U/L (14-59); AST 13 U/L (15-37); Albumin 3.1 g/dL (3.4-5.0); Alkaline Phosphatase 53 U/L (46-116); Anion Gap 9.4 mmol/L (3-11); BUN 20 mg/dL (7-18); Bilirubin, Total 0.3 mg/dL (0.2-1.0); CO2 28.6 mmol/L (21.0-32.0); CREATININE 1.1 mg/dL (0.55-1.02); Calcium 9.3 mg/dL (8.5-10.1); Chloride 106 mmol/L (98-107); Estimated GFR 48.96 (mL/min/1.73m2); Glucose 136 mg/dL (74-106); Potassium 3.3 mmol/L (3.5-5.1); Sodium 144 mmol/L (136-145); Total Protein 6.8 g/dL (6.4-8.2)
[2021-01-13 09:35] LABS: PTT Activated 20.7 sec (21.0-27.5); Prothrombin Time 9.9 sec (9.3-11.0)
--- NOTE | 2021-01-13 09:52 | DI.CT_ITS ---
Exam(s) CT LUMBAR SPINE RECONS CT ABDOMEN PELVIS WO EXAM: CT ABDOMEN PELVIS WO INDICATION: fall, right sided pain. COMPARISON: CT CT CHEST PE ABD PELVIS W from 12/16/[address] LUMBAR SPINE RECONS from 01/13/[address] LUMBAR SPINE RECONS from 01/13/2021 TECHNIQUE: CT examination was performed without contrast administration. FINDINGS: Images obtained through the lung bases show severe changes of COPD.. The liver and spleen appear in tact. Visualized portions of the pancreas are unremarkable. Gallbladder and bile ducts are CT normal. Abdominal aorta is borderline aneurysmal at 31 millimeters. No evidence of leaking aneurysm.. No significant abdominal wall hernia. No significant abdominal or pelvic adenopathy. Adrenals appear normal bilaterally. The kidneys are normal in size and shape. There is no evidence of a renal mass, hydronephrosis, or n ephrolithiasis. No ureteral dilatation or calcification identified. Urinary bladder is nearly empty but grossly unre markable. Appendix appears normal. No evidence of bowel injury or bowel obstruction. The visualized bones show no evidence of injury, including CT reconstructions of the lumbar spine. IMPRESSION: No evidence of acute intra-abdominal injury. RADIATION DOSE DELIVERED: DLP Total DLP CTDIvol RADIATION OPTIMIZATION: All CT scans at this facility use at least one of these dose optimization te chniques: automated exposure control; mA and/or kV adjustment per patient size (includes targeted exa ms where dose is matched to clinical indication); or iterative reconstruction.
--- NOTE | 2021-01-13 09:56 | DI.VRAD_ITS ---
PROCEDURE INFORMATION: Exam: CT Abdomen And Pelvis Without Contrast Exam date and time: 01/13/2021 9:17 AM Age: 70 years old Clinical indication: Injury or trauma; Blunt; Rlq; Injury date: 01/13/21; Injury details: Fall/rt sided pain TECHNIQUE: Imaging protocol: Computed tomography of the abdomen and pelvis without contrast. Radiation optimization: All CT scans at this facility use at least one of these dose optimization techniques: automated exposure control; mA and/or kV adjustment per patient size (includes targeted exams where dose is matched to clinical indication); or iterative reconstruction. COMPARISON: CT CHEST PE ABD PELVIS W 12/16/2020 10:45 AM FINDINGS: Limitations: None. Lungs: Dependent interstitial thickening without dense consolidation. Heart: Atherosclerotic changes of the coronary arteries. Tiny amount of anterior inferior pericardial fluid or thickening. Diaphragm: Tiny hiatal hernia. Liver: Normal. No mass. Gallbladder and bile ducts: Normal. No calcified stones. No ductal dilation. Pancreas: Normal. No ductal dilation. Spleen: Normal. No splenomegaly. Adrenal glands: Normal. No mass. Kidneys and ureters: No renal stones or hydronephrosis. Stomach and bowel: No bowel obstruction. Poor distension of the stomach. Moderate retained stool in the colon. Appendix: No evidence of acute appendicitis. Intraperitoneal space: No free air or free fluid. Vasculature: Moderate atherosclerotic changes of the aorta extending into the mesenteric, renal, iliac arteries with mild dilatation of the aorta to 3.4 cm. Lymph nodes: Unremarkable. No enlarged lymph nodes. Urinary bladder: Unremarkable as visualized. Reproductive: I believe the uterus is absent. Bones/joints: Degenerative changes in the regional skeleton without acute fracture. Minimal scoliosis. No displaced fracture. Soft tissues: No significant subcutaneous hematoma. Other findings: Limited noncontrast exam. IMPRESSION: 1. No acute abnormality. 2. Postoperative changes. 3. Abdominal aortic aneurysm which be followed with CT or ultrasound in 1 year. 4. Limited noncontrast exam. Dictated and Authenticated by: Gianni Reed MD. Ordering:RAMAKRISHNA Fisher MD
--- NOTE | 2021-01-13 10:05 | DI.VRAD_ITS ---
PROCEDURE INFORMATION: Exam: CT Lumbar Spine Without Contrast Exam date and time: 01/13/2021 9:22 AM Age: 70 years old Clinical indication: Injury or trauma; Blunt trauma (contusions or hematomas); Injury date: 01/13/21; Injury details: Fall/pain TECHNIQUE: Imaging protocol: Computed tomography images of the lumbar spine without contrast. Radiation optimization: All CT scans at this facility use at least one of these dose optimization techniques: automated exposure control; mA and/or kV adjustment per patient size (includes targeted exams where dose is matched to clinical indication); or iterative reconstruction. COMPARISON: CT THORACIC LUMBAR SPINE REC 12/16/2020 10:45 AM FINDINGS: Vertebrae: The non spinal elements are evaluated separately today. Osteopenia and degenerative changes with limited listhese which are likely degenerative. No acute fracture line, high-grade compression deformity, or worrisome malalignment. . Epidural space: No epidural fluid. Sacrum/coccyx: Symmetric SI joints. Soft tissues: No paraspinal mass or hematoma. Disc spaces: No high-grade central stenosis. Multilevel bulging discs. IMPRESSION: Degenerative changes without acute fracture line. If concern persists consider MRI. Dictated and Authenticated by: Gianni Reed MD. Ordering:RAMAKRISHNA Fisher MD
== END 2021-01-13 10:27 | disposition home or self-care (01) ==
PROVIDERS: Emergency Provider Emergency Medicine; PCP Nurse Practitioner
DX: S30.0XXA Contusion of lower back and pelvis, initial encounter (principal); S39.81XA Other specified injuries of abdomen, initial encounter; R10.31 Right lower quadrant pain; X58.XXXA Exposure to other specified factors, initial encounter
CPT/HCPCS: 36415; 80053; 99284; 74176; 85025; 85610; 85730

== ENCOUNTER 2021-02-11 08:59 | Outpatient (CLI) | payer MEDICARE, SELFPAY ==
[2021-02-11 09:14] LABS: Abs Immature Grans 0.07 10^3/uL (0.0-0.06); Absolute Eosinophil Count 0.47 10^3/uL (0.0-0.7); Absolute Lymphocyte Count 2.73 10^3/uL (1.2-3.4); Absolute Monocyte Count 0.58 10^3/uL (0.1-0.8); Absolute Neutrophil Count 4.54 10^3/uL (1.2-6.7); Basophils % 1.2; Eosinophils % 5.5; HCT 39.9 % (36.0-46.0); HGB 12.8 g/dL (11.2-15.7); Immature Grans % 0.8; Lymphocytes % 32.2; MCH 32.2 pg (27.0-33.0); MCHC 32.1 % (32.0-36.0); MCV 100.5 fL (80-95); MPV 8.9 fL (8.0-11.0); Monocytes % 6.8; Neutrophils % 53.5; Nucleated RBC 0 %; Platelet Count 218 10^3/uL (130-400); RBC 3.97 10^6/uL (3.93-5.22); RDW 14.9 % (11.7-14.6); RDW-SD 55.8 fL; WBC 8.49 10^3/uL (4.4-10.8)
[2021-02-11 09:33] LABS: ALT 38 U/L (14-59); AST 15 U/L (15-37); Alkaline Phosphatase 76 U/L (46-116); Anion Gap 7.1 mmol/L (3-11); BUN 22 mg/dL (7-18); Bilirubin, Total 0.3 mg/dL (0.2-1.0); CO2 30.9 mmol/L (21.0-32.0); CREATININE 0.9 mg/dL (0.55-1.02); Calcium 9.3 mg/dL (8.5-10.1); Chloride 105 mmol/L (98-107); Glucose 101 mg/dL (74-106); Magnesium 2.1 mg/dL (1.8-2.4); Potassium 3.4 mmol/L (3.5-5.1); Sodium 143 mmol/L (136-145); Total Protein 6.8 g/dL (6.4-8.2)
== END 2021-02-11 09:00 | disposition home or self-care (01) ==
LOC: LBO 09:01
PROVIDERS: PCP Nurse Practitioner; Visit Provider Internal Medicine Medical Oncology
DX: C79.31 Secondary malignant neoplasm of brain (principal)
CPT/HCPCS: 36415; 80053; 83735; 85025

== ENCOUNTER 2021-03-04 11:20 | Outpatient (CLI) | payer MEDICARE, SELFPAY ==
[2021-03-04 07:40] LABS: Abs Immature Grans 0.02 10^3/uL (0.0-0.06); Absolute Basophil Count 0.07 10^3/uL (0.0-0.2); Absolute Eosinophil Count 0.21 10^3/uL (0.0-0.7); Absolute Lymphocyte Count 1.85 10^3/uL (1.2-3.4); Absolute Monocyte Count 0.41 10^3/uL (0.1-0.8); Absolute Neutrophil Count 1.76 10^3/uL (1.2-6.7); Basophils % 1.6; Eosinophils % 4.9; HCT 35.3 % (36.0-46.0); HGB 11.5 g/dL (11.2-15.7); Immature Grans % 0.5; Lymphocytes % 42.8; MCH 32.4 pg (27.0-33.0); MCHC 32.6 % (32.0-36.0); MCV 99.4 fL (80-95); MPV 8.9 fL (8.0-11.0); Monocytes % 9.5; Neutrophils % 40.7; Nucleated RBC 0 %; Platelet Count 337 10^3/uL (130-400); RBC 3.55 10^6/uL (3.93-5.22); RDW 15.3 % (11.7-14.6); RDW-SD 54.5 fL; WBC 4.32 10^3/uL (4.4-10.8)
[2021-03-04 07:51] LABS: ALT 28 U/L (14-59); AST 18 U/L (15-37); Alkaline Phosphatase 82 U/L (46-116); Anion Gap 8.3 mmol/L (3-11); BUN 16 mg/dL (7-18); Bilirubin, Total 0.2 mg/dL (0.2-1.0); CO2 27.7 mmol/L (21.0-32.0); Calcium 9.4 mg/dL (8.5-10.1); Chloride 104 mmol/L (98-107); Estimated GFR 54.66 (mL/min/1.73m2); Glucose 133 mg/dL (74-106); Magnesium 2.4 mg/dL (1.8-2.4); Potassium 3.8 mmol/L (3.5-5.1); Sodium 140 mmol/L (136-145)
== END 2021-03-04 11:21 | disposition home or self-care (01) ==
LOC: LBO 11:22
PROVIDERS: PCP Nurse Practitioner; Visit Provider Internal Medicine Medical Oncology
DX: C79.31 Secondary malignant neoplasm of brain (principal)
CPT/HCPCS: 80053; 83735; 85025

== ENCOUNTER 2021-03-18 15:59 | Outpatient (CLI) | payer MEDICARE, OTHER, SELFPAY ==
--- NOTE | 2021-03-18 15:15 | DI.RAD_ITS ---
Exam(s) XR SHOULDER RT COMPLETE 2+V EXAM: XR SHOULDER RT COMPLETE 2+V CLINICAL HISTORY: pain, decreased ROM M25.511 PAIN RT SHOULDER W19.XXXA FALL. TECHNIQUE: 2D digital imaging was performed. COMPARISON: CR CHEST 2 VIEWS PA,LAT from 11/05/2010 CR LEFT SHOULDER COMPLETE from 09/28/[address] CHEST PE ABD PELVIS W from 12/16/2020 CR,XR XR PORTABLE CHEST AP from 12/16/2020 FINDINGS: BONES: No acute fracture is present. Multiple cystic areas are noted in the superior humeral head. T here is slight flattening of the humeral head. Spurring at the undersurface of the acromion. There is narrowing of the normal acromial humeral distance consistent with chronic rotator cuff tear. Ther e is spurring at the glenoid. Glenohumeral joint space is well maintained. Lungs show fibrotic sim ges. JOINTS: No dislocation present. IMPRESSION: Evidence chronic rotator cuff tear and degenerative changes at the acromion and superior humeral head . DATA REPOSITORY: RADIATION DOSE DELIVERED:
== END 2021-03-18 16:19 ==
PROVIDERS: PCP Nurse Practitioner; Visit Provider Nurse Practitioner
DX: M25.511 Pain in right shoulder (principal); W19.XXXA Unspecified fall, initial encounter; M75.101 Unspecified rotator cuff tear or rupture of right shoulder, not specified as traumatic
CPT/HCPCS: 73030

== ENCOUNTER 2021-03-27 01:23 | Outpatient (CLI) | payer MEDICARE, OTHER, SELFPAY ==
[2021-03-27] MEDS: Normal Saline Flush 10 ML SYR IVP (14:56)
[2021-03-27] MEDS: Omnipaque 350 MG/ML 100 ML BTL IJ (14:57)
--- NOTE | 2021-03-27 15:05 | DI.CT_ITS ---
Exam(s) CT CHEST W EXAM: CT CHEST W CLINICAL HISTORY: LUNG CANCER C34.12 RESTAGING TECHNIQUE: CT examination of the chest, abdomen, and pelvis was performed utilizing intravenous infusion of 70 cc of Omnipaque 350 with biphasic hepatic imaging. Oral contrast was also administered. COMPARISON: CT CT CHEST PE ABD PELVIS W from 12/16/2020 FINDINGS: There are diffuse reticular predominantly peripheral intrapulmonary radiodensities, the findings are consistent with chronic disease. Multiple calcified intrapulmonary nodules are seen. A previously amira cribed left upper lobe pulmonary mass is decreased in size from examination of December 2020 and now m easures about 16 x 22 millimeters in diameter on transaxial imaging. Previously described mediastinal and hilar nodes have markedly decreased in size, largest visible note is now a pretracheal node jennifer uring about 13 millimeters in diameter.. No pleural effusion. No pleural based mass. No evidence of pulmonary embolic disease although the detection of pulmonary emboli would be limited by fairly low contrast concentration in the pulmonary arterial circulation.. Unremarkable appearance of thoracic aorta and major branch vessels. . There is unremarkable appearance of the thoracic aorta and major branches with no evidence of aneu rysm or dissection. . Tracheobronchial tree appears intact. No axillary or supraclavicular adenopathy. Visualized portions of the liver, spleen, adrenals, and kidneys are unremarkable. No abnormality seen involving the bony thorax. Tracheobronchial tree appears intact. IMPRESSION: Interval decrease in size previously noted left upper lobe pulmonary/hilar mass. Interval decrease i n size of previously enlarged left hilar and mediastinal nodes since prior examination of December 16, 2020. No evidence of new disease. RADIATION DOSE DELIVERED: 351.26mGy.cm Total DLP 351.26mGy.cm Total DLP 351.26mGy.cm Total DLP 9.36mGy CTDIvol
== END 2021-03-27 01:43 ==
PROVIDERS: PCP Nurse Practitioner; Visit Provider Internal Medicine Medical Oncology
DX: C34.12 Malignant neoplasm of upper lobe, left bronchus or lung (principal)
CPT/HCPCS: 71260; J3490

== ENCOUNTER 2021-04-01 03:42 | Outpatient (CLI) | payer MEDICARE, OTHER, SELFPAY ==
[2021-04-01 09:18] LABS: Abs Immature Grans 0.03 10^3/uL (0.0-0.06); Absolute Basophil Count 0.09 10^3/uL (0.0-0.2); Absolute Eosinophil Count 0.23 10^3/uL (0.0-0.7); Absolute Lymphocyte Count 1.72 10^3/uL (1.2-3.4); Absolute Monocyte Count 0.66 10^3/uL (0.1-0.8); Basophils % 1.4; Eosinophils % 3.5; HCT 34.8 % (36.0-46.0); HGB 11.2 g/dL (11.2-15.7); Immature Grans % 0.5; Lymphocytes % 25.9; MCH 33.3 pg (27.0-33.0); MCHC 32.2 % (32.0-36.0); MCV 103.6 fL (80-95); MPV 8.9 fL (8.0-11.0); Neutrophils % 58.7; Nucleated RBC 0 %; Platelet Count 413 10^3/uL (130-400); RBC 3.36 10^6/uL (3.93-5.22); RDW 17.4 % (11.7-14.6); RDW-SD 66.5 fL; WBC 6.63 10^3/uL (4.4-10.8)
[2021-04-01 09:34] LABS: ALT 27 U/L (14-59); AST 23 U/L (15-37); Albumin 3.5 g/dL (3.4-5.0); Alkaline Phosphatase 70 U/L (46-116); Anion Gap 8.9 mmol/L (3-11); BUN 17 mg/dL (7-18); Bilirubin, Total 0.2 mg/dL (0.2-1.0); CO2 28.1 mmol/L (21.0-32.0); CREATININE 1.1 mg/dL (0.55-1.02); Chloride 104 mmol/L (98-107); Estimated GFR 48.96 (mL/min/1.73m2); Glucose 107 mg/dL (74-106); Magnesium 2.2 mg/dL (1.8-2.4); Potassium 3.8 mmol/L (3.5-5.1); Sodium 141 mmol/L (136-145); Total Protein 7.7 g/dL (6.4-8.2)
== END 2021-04-01 03:43 | disposition home or self-care (01) ==
LOC: LBO 03:42
PROVIDERS: PCP Nurse Practitioner; Visit Provider Internal Medicine Medical Oncology
DX: C79.31 Secondary malignant neoplasm of brain (principal)
CPT/HCPCS: 36415; 80053; 83735; 85025

== ENCOUNTER 2021-04-05 01:49 | Outpatient (CLI) | payer MEDICARE, OTHER, SELFPAY ==
[2021-04-05] MEDS: Gadoterate meglumine 20 ML VIAL 11 ML IVP (10:47)
[2021-04-05] MEDS: Normal Saline Flush 10 ML SYR IVP (10:47)
--- NOTE | 2021-04-05 11:15 | DI.MRI_ITS ---
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 CONTRAST MATERIAL: IV Contrast: 11 ML of Dotarem contrast administered. MR MR BRAIN WO/W from 01/10/2021 FINDINGS: VENTRICLES AND EXTRA AXIAL SPACES: Normal in size and morphology for the patient's age. HEMORRHAGE: None. CEREBRAL PARENCHYMA: No focus of restricted diffusion to suggest acute infarct. There are multiple ar eas of hyperintense signal seen on the T2 and FLAIR images in the white matter. These are most consi stent with microvascular ischemic disease. MIDLINE SHIFT: None. BRAINSTEM/CEREBELLUM: Normal. CALVARIUM: Normal. ENHANCEMENT: The left thalamic enhancing mass is decreased in size and now measures 6.8 x 6.4 mm. Th e surrounding edema has resolved as has the midline shift. No other enhancing masses are seen. VISUALIZED PARANASAL SINUSES/MASTOIDS: Clear. [place]: Normal flow void. PITUITARY GLAND: Unremarkable. OTHER FINDINGS: IMPRESSION: 1. Interval decrease in size of the left thalamic metastasis now measuring 6.8 x 6.4 mm. There is al so been resolution of the surrounding edema and midline shift. 2. No new intracranial metastatic disease. DATA REPOSITORY:
== END 2021-04-05 02:09 ==
PROVIDERS: PCP Nurse Practitioner; Visit Provider Radiology Radiation Oncology
DX: C79.31 Secondary malignant neoplasm of brain (principal); R90.82 White matter disease, unspecified; Z92.3 Personal history of irradiation; C34.12 Malignant neoplasm of upper lobe, left bronchus or lung
CPT/HCPCS: 70553

== ENCOUNTER 2021-04-22 01:47 | Outpatient (CLI) | payer MEDICARE, OTHER, SELFPAY ==
[2021-04-22 08:02] LABS: Absolute Basophil Count 0.04 10^3/uL (0.0-0.2); HGB 9.4 g/dL (11.2-15.7); MCH 34.1 pg (27.0-33.0); MCHC 31.3 % (32.0-36.0); MCV 108.7 fL (80-95); MPV 8.9 fL (8.0-11.0); Nucleated RBC 0 %; Platelet Count 226 10^3/uL (130-400); RBC 2.76 10^6/uL (3.93-5.22); RDW 17.4 % (11.7-14.6); RDW-SD 68.4 fL; WBC 3.87 10^3/uL (4.4-10.8)
[2021-04-22 08:16] LABS: ALT 24 U/L (14-59); AST 19 U/L (15-37); Albumin 3.2 g/dL (3.4-5.0); Alkaline Phosphatase 67 U/L (46-116); Anion Gap 6.2 mmol/L (3-11); BUN 14 mg/dL (7-18); Bilirubin, Total 0.2 mg/dL (0.2-1.0); CO2 28.8 mmol/L (21.0-32.0); CREATININE 0.9 mg/dL (0.55-1.02); Calcium 9.8 mg/dL (8.5-10.1); Chloride 105 mmol/L (98-107); Glucose 71 mg/dL (74-106); Magnesium 2.5 mg/dL (1.8-2.4); Sodium 140 mmol/L (136-145); Total Protein 7.2 g/dL (6.4-8.2)
[2021-04-22 08:19] LABS: Absolute Eosinophil Count 0.39 10^3/uL (0.0-0.7); Absolute Lymphocyte Count 1.74 10^3/uL (1.2-3.4); Absolute Monocyte Count 0.15 10^3/uL (0.1-0.8); Absolute Neutrophil Count 1.55 10^3/uL (1.2-6.7); Atypical Lymphocytes % 2
[2021-04-22 08:20] LABS: Diff Comment Manual Differential; Macrocytosis 2+
== END 2021-04-22 01:48 | disposition home or self-care (01) ==
PROVIDERS: PCP Nurse Practitioner; Visit Provider Internal Medicine Medical Oncology
DX: C79.31 Secondary malignant neoplasm of brain (principal)
CPT/HCPCS: 36415; 80053; 83735; 85025

== ENCOUNTER → 2021-04-24 13:42 | Outpatient (BNVA) | payer MEDICARE, OTHER, SELFPAY | PROVIDERS: PCP Nurse Practitioner; Referring Provider Nurse Practitioner; Visit Provider Student in an Organized Health Care Education/Training Program | DX: M12.811 Other specific arthropathies, not elsewhere classified, right shoulder (principal); W19.XXXA Unspecified fall, initial encounter | CPT/HCPCS: 99204; 99214 ==

== ENCOUNTER 2021-05-06 00:43 | Outpatient (CLI) | payer MEDICARE, OTHER, SELFPAY ==
[2021-05-06] MEDS: Omnipaque 350 MG/ML 100 ML BTL IJ (11:01)
--- NOTE | 2021-05-06 11:02 | DI.CT_ITS ---
Exam(s) CT CHEST W EXAM: CT CHEST W CLINICAL HISTORY: AMIE LUNG CA,C34.12, ON THERAPY,RESTAGING EXAM TECHNIQUE: Imaging Protocol: Axial computed tomography images with coronal and sagittal reformatted images were created and reviewed CONTRAST MATERIAL: Intravenous: Omnipaque 350 Contrast volume:structured data in ml. COMPARISON: CT CT CHEST W from 03/27/2021 FINDINGS: Tracheobronchial tree: No bronchiectasis or mucous plugging. Mediastinum and [place]: No dominant adenopathy or fluid collection. Pulmonary parenchyma: Mild interval decrease in size of left upper lobe mass, now measuring 15 by 20 by 13 millimeters. No new masses. Underlying fibrotic changes. Pleura: No effusion or pneumothorax. Heart: The heart is not dilated. coronary artery calcifications are seen. Aorta: Thoracic aorta non-dilated. Atherosclerotic changes. Abdominal portion partially visualized 3 .2 centimeter aneurysm with mural thrombus. Upper abdomen: Unremarkable. Lymph nodes: 8 millimeter precarinal lymph node, decreased from previous exam. No hilar lymph node s visible. Bones: Degenerative disc changes. Soft tissues: Unremarkable. IMPRESSION: Continued decrease in size of left upper lobe mass and precarinal lymph node. RADIATION DOSE DELIVERED: 394.65mGy.cm Total DLP DATA REPOSITORY: All CT scans at this facility are submitted to the National Radiology Data Registry (NRDR) Dose Index Registry (DIR) with the [employer] ([employer]). RADIATION OPTIMIZATION: All CT scans at this facility use at least one of these dose optimization te chniques: automated exposure control; mA and/or kV adjustment per patient size (includes targeted exa ms where dose is matched to clinical indication); or iterative reconstruction.
== END 2021-05-06 01:03 ==
PROVIDERS: PCP Nurse Practitioner; Visit Provider Internal Medicine Medical Oncology
DX: C34.12 Malignant neoplasm of upper lobe, left bronchus or lung (principal); C79.31 Secondary malignant neoplasm of brain
CPT/HCPCS: 71260; J3490

== ENCOUNTER → 2021-05-10 09:20 | Outpatient (BNVA) | payer MEDICARE, OTHER, SELFPAY | PROVIDERS: PCP Nurse Practitioner; Referring Provider Nurse Practitioner | DX: M75.101 Unspecified rotator cuff tear or rupture of right shoulder, not specified as traumatic (principal); M12.811 Other specific arthropathies, not elsewhere classified, right shoulder | CPT/HCPCS: 20610; J1040 ==

== ENCOUNTER 2021-05-13 03:48 | Outpatient (CLI) | payer MEDICARE, OTHER, SELFPAY ==
[2021-05-13 09:20] LABS: HCT 26.3 % (36.0-46.0); HGB 8.3 g/dL (11.2-15.7); MCH 35.3 pg (27.0-33.0); MCHC 31.6 % (32.0-36.0); MCV 111.9 fL (80-95); MPV 9.6 fL (8.0-11.0); Nucleated RBC 0 %; Platelet Count 238 10^3/uL (130-400); RBC 2.35 10^6/uL (3.93-5.22); RDW-SD 71.9 fL; WBC 4.01 10^3/uL (4.4-10.8)
[2021-05-13 09:26] LABS: ALT 30 U/L (14-59); AST 18 U/L (15-37); Albumin 3.4 g/dL (3.4-5.0); Alkaline Phosphatase 57 U/L (46-116); Anion Gap 8.8 mmol/L (3-11); BUN 22 mg/dL (7-18); Bilirubin, Total 0.2 mg/dL (0.2-1.0); CO2 28.2 mmol/L (21.0-32.0); Calcium 9.7 mg/dL (8.5-10.1); Chloride 106 mmol/L (98-107); Estimated GFR 54.66 (mL/min/1.73m2); Glucose 86 mg/dL (74-106); Magnesium 2.5 mg/dL (1.8-2.4); Potassium 3.8 mmol/L (3.5-5.1); Sodium 143 mmol/L (136-145); Total Protein 7.4 g/dL (6.4-8.2)
[2021-05-13 09:39] LABS: Absolute Eosinophil Count 0.08 10^3/uL (0.0-0.7); Absolute Monocyte Count 0.52 10^3/uL (0.1-0.8); Atypical Lymphocytes % 2; Bands % 1
[2021-05-13 09:40] LABS: Diff Comment Manual Differential
[2021-05-13 09:46] LABS: Macrocytosis 2+
== END 2021-05-13 03:49 | disposition home or self-care (01) ==
LOC: INF 03:49
PROVIDERS: PCP Nurse Practitioner; Visit Provider Internal Medicine Medical Oncology
DX: C79.31 Secondary malignant neoplasm of brain (principal)
CPT/HCPCS: 36415; 80053; 83735; 85025

== ENCOUNTER 2021-06-03 03:43 | Outpatient (CLI) | payer MEDICARE, OTHER, SELFPAY ==
[2021-06-03 08:27] LABS: Abs Immature Grans 0.02 10^3/uL (0.0-0.06); Absolute Basophil Count 0.07 10^3/uL (0.0-0.2); Absolute Eosinophil Count 0.32 10^3/uL (0.0-0.7); Absolute Lymphocyte Count 1.56 10^3/uL (1.2-3.4); Absolute Monocyte Count 0.42 10^3/uL (0.1-0.8); Absolute Neutrophil Count 1.78 10^3/uL (1.2-6.7); Basophils % 1.7; Eosinophils % 7.7; HCT 31.4 % (36.0-46.0); HGB 9.7 g/dL (11.2-15.7); Immature Grans % 0.5; Lymphocytes % 37.4; MCH 36.1 pg (27.0-33.0); MCHC 30.9 % (32.0-36.0); MCV 116.7 fL (80-95); Monocytes % 10.1; Neutrophils % 42.6; Nucleated RBC 0 %; Platelet Count 402 10^3/uL (130-400); RBC 2.69 10^6/uL (3.93-5.22); RDW 17.3 % (11.7-14.6); RDW-SD 76.2 fL; WBC 4.17 10^3/uL (4.4-10.8)
[2021-06-03 08:43] LABS: ALT 27 U/L (14-59); AST 21 U/L (15-37); Albumin 3.5 g/dL (3.4-5.0); Alkaline Phosphatase 63 U/L (46-116); BUN 21 mg/dL (7-18); Bilirubin, Total 0.2 mg/dL (0.2-1.0); CREATININE 1.1 mg/dL (0.55-1.02); Calcium 9.3 mg/dL (8.5-10.1); Chloride 105 mmol/L (98-107); Estimated GFR 48.96 (mL/min/1.73m2); Glucose 126 mg/dL (74-106); Magnesium 2.3 mg/dL (1.8-2.4); Potassium 3.6 mmol/L (3.5-5.1); Sodium 141 mmol/L (136-145); Total Protein 7.6 g/dL (6.4-8.2)
[2021-06-03 08:55] LABS: Diff Comment RBC Morph Reviewed; Macrocytosis 2+
== END 2021-06-03 03:44 | disposition home or self-care (01) ==
LOC: LBO 03:43
PROVIDERS: PCP Nurse Practitioner; Visit Provider Internal Medicine Medical Oncology
DX: C79.31 Secondary malignant neoplasm of brain (principal)
CPT/HCPCS: 36415; 80053; 83735; 85025

== ENCOUNTER 2021-07-01 04:41 | Outpatient (CLI) | payer MEDICARE, OTHER, SELFPAY ==
[2021-07-01 08:39] LABS: Abs Immature Grans 0.02 10^3/uL (0.0-0.06); Absolute Basophil Count 0.08 10^3/uL (0.0-0.2); Absolute Eosinophil Count 0.55 10^3/uL (0.0-0.7); Absolute Lymphocyte Count 1.66 10^3/uL (1.2-3.4); Absolute Monocyte Count 0.46 10^3/uL (0.1-0.8); Absolute Neutrophil Count 2.78 10^3/uL (1.2-6.7); Basophils % 1.4; Eosinophils % 9.9; HCT 31.9 % (36.0-46.0); Immature Grans % 0.4; Lymphocytes % 29.9; MCH 35.6 pg (27.0-33.0); MCHC 31.3 % (32.0-36.0); MCV 113.5 fL (80-95); MPV 9.1 fL (8.0-11.0); Monocytes % 8.3; Neutrophils % 50.1; Platelet Count 322 10^3/uL (130-400); RBC 2.81 10^6/uL (3.93-5.22); RDW 14.6 % (11.7-14.6); RDW-SD 60.3 fL; WBC 5.55 10^3/uL (4.4-10.8)
[2021-07-01 08:54] LABS: ALT 45 U/L (14-59); AST 32 U/L (15-37); Albumin 3.2 g/dL (3.4-5.0); Alkaline Phosphatase 80 U/L (46-116); Anion Gap 8.7 mmol/L (3-11); BUN 25 mg/dL (7-18); Bilirubin, Total 0.3 mg/dL (0.2-1.0); CO2 28.3 mmol/L (21.0-32.0); CREATININE 1.2 mg/dL (0.55-1.02); Calcium 9.5 mg/dL (8.5-10.1); Chloride 105 mmol/L (98-107); Estimated GFR 44.29 (mL/min/1.73m2); Glucose 130 mg/dL (74-106); Magnesium 2.3 mg/dL (1.8-2.4); Potassium 3.8 mmol/L (3.5-5.1); Sodium 142 mmol/L (136-145); Total Protein 7.6 g/dL (6.4-8.2)
[2021-07-01 08:57] LABS: Diff Comment Agrees w/ Instrument
[2021-07-01 08:58] LABS: Macrocytosis 1+; Stomatocytes 2+
== END 2021-07-01 04:42 | disposition home or self-care (01) ==
LOC: LBO 04:41
PROVIDERS: PCP Nurse Practitioner; Visit Provider Internal Medicine Medical Oncology
DX: C79.31 Secondary malignant neoplasm of brain (principal)
CPT/HCPCS: 36415; 80053; 83735; 85025

== ENCOUNTER 2021-07-08 02:12 | Outpatient (CLI) | payer MEDICARE, OTHER, SELFPAY ==
[2021-07-08 08:37] LABS: Abs Immature Grans 0.02 10^3/uL (0.0-0.06); Absolute Basophil Count 0.07 10^3/uL (0.0-0.2); Absolute Eosinophil Count 0.52 10^3/uL (0.0-0.7); Absolute Lymphocyte Count 1.73 10^3/uL (1.2-3.4); Absolute Monocyte Count 0.45 10^3/uL (0.1-0.8); Absolute Neutrophil Count 2.55 10^3/uL (1.2-6.7); Basophils % 1.3; Eosinophils % 9.7; HCT 33.9 % (36.0-46.0); HGB 10.5 g/dL (11.2-15.7); Immature Grans % 0.4; Lymphocytes % 32.4; MCH 35.6 pg (27.0-33.0); MCV 115 fL (80-95); MPV 9.4 fL (8.0-11.0); Monocytes % 8.4; Neutrophils % 47.8; Platelet Count 265 10^3/uL (130-400); RBC 2.95 10^6/uL (3.93-5.22); RDW 14.2 % (11.7-14.6); RDW-SD 59.9 fL; WBC 5.34 10^3/uL (4.4-10.8)
[2021-07-08 08:49] LABS: Diff Comment RBC Morph Reviewed; Macrocytosis 2+
[2021-07-08 09:11] LABS: ALT 41 U/L (14-59); AST 33 U/L (15-37); Albumin 3.2 g/dL (3.4-5.0); Alkaline Phosphatase 75 U/L (46-116); Anion Gap 5.2 mmol/L (3-11); BUN 18 mg/dL (7-18); Bilirubin, Total 0.2 mg/dL (0.2-1.0); CO2 29.8 mmol/L (21.0-32.0); Calcium 9.6 mg/dL (8.5-10.1); Chloride 106 mmol/L (98-107); Estimated GFR 54.66 (mL/min/1.73m2); Glucose 80 mg/dL (74-106); Magnesium 2.3 mg/dL (1.8-2.4); Potassium 3.8 mmol/L (3.5-5.1); Sodium 141 mmol/L (136-145); Total Protein 7.4 g/dL (6.4-8.2)
== END 2021-07-08 02:13 | disposition home or self-care (01) ==
LOC: LBO 02:12
PROVIDERS: PCP Nurse Practitioner; Visit Provider Internal Medicine Medical Oncology
DX: C79.31 Secondary malignant neoplasm of brain (principal)
CPT/HCPCS: 36415; 80053; 83735; 85025

== ENCOUNTER → 2021-07-24 01:17 | Outpatient (CLI) | payer MEDICARE, OTHER, SELFPAY ==
--- NOTE | 2021-07-24 14:58 | DI.CT_ITS ---
Exam(s) CT CHEST WO EXAM: CT CHEST WO CLINICAL HISTORY: RESTAGING MET LUNG CA, C34.12, BRAIN METS. TECHNIQUE: Multi planar reconstructions were performed. CONTRAST MATERIAL: None COMPARISON: CT CT CHEST W from 03/27/[address] CHEST W from 05/06/2021 FINDINGS: CHEST: LUNGS: Interstitial fibrotic changes both lung mendez are again noted. The left upper lobe infiltrate is unchanged from prior study performed 05/06/2021. No new infiltrates nor nodules nor pleural effusions. MEDIASTINUM: No obvious new hilar adenopathy. Small right precarinal lymph unchanged there is no sub carinal adenopathy. No axillary adenopathy. Visualized thyroid unremarkable.No supraclavicular parker opathy. CARDIAC: Heart size is normal. There is no pericardial effusion.Caliber of the thoracic aorta is wit hin normal limits. VISUALIZED UPPER ABDOMEN:No obvious new significant findings OSSEOUS: No significant osseous lesions.No fractures. IMPRESSION: 1. Stable appearance of the left upper lobe mass infiltrate, unchanged from 05/06/2021. 2. No new lung nodules, pleural effusions, nor new intrathoracic adenopathy. 3. Pulmonary fibrosis findings are again noted. RADIATION DOSE DELIVERED: 384.42mGy.cm Total DLP DATA REPOSITORY: All CT scans at this facility are submitted to the National Radiology Data Registry (NRDR) Dose Index Registry (DIR) with the [employer] ([employer]). RADIATION OPTIMIZATION: All CT scans at this facility use at least one of these dose optimization te chniques: automated exposure control; mA and/or kV adjustment per patient size (includes targeted exa ms where dose is matched to clinical indication); or iterative reconstruction.
== END ==
PROVIDERS: PCP Nurse Practitioner; Visit Provider Nurse Practitioner Adult Health
DX: C34.12 Malignant neoplasm of upper lobe, left bronchus or lung (principal); J84.10 Pulmonary fibrosis, unspecified; C79.31 Secondary malignant neoplasm of brain
CPT/HCPCS: 71250

== ENCOUNTER 2021-07-29 04:06 | Outpatient (CLI) | payer MEDICARE, OTHER, SELFPAY ==
[2021-07-29 08:02] LABS: Abs Immature Grans 0.01 10^3/uL (0.0-0.06); Absolute Basophil Count 0.05 10^3/uL (0.0-0.2); Absolute Eosinophil Count 0.39 10^3/uL (0.0-0.7); Absolute Lymphocyte Count 1.75 10^3/uL (1.2-3.4); Absolute Neutrophil Count 1.81 10^3/uL (1.2-6.7); Basophils % 1.2; HCT 34.3 % (36.0-46.0); HGB 10.9 g/dL (11.2-15.7); Immature Grans % 0.2; Lymphocytes % 40.6; MCH 35.9 pg (27.0-33.0); MCHC 31.8 % (32.0-36.0); MCV 113 fL (80-95); MPV 9.6 fL (8.0-11.0); Platelet Count 394 10^3/uL (130-400); RBC 3.04 10^6/uL (3.93-5.22); RDW 14.4 % (11.7-14.6); RDW-SD 59.6 fL; WBC 4.31 10^3/uL (4.4-10.8)
[2021-07-29 09:03] LABS: ALT 38 U/L (14-59); AST 33 U/L (15-37); Albumin 3.2 g/dL (3.4-5.0); Alkaline Phosphatase 81 U/L (46-116); Anion Gap 10.1 mmol/L (3-11); BUN 24 mg/dL (7-18); Bilirubin, Total 0.2 mg/dL (0.2-1.0); CO2 26.9 mmol/L (21.0-32.0); CREATININE 1.1 mg/dL (0.55-1.02); Calcium 9.8 mg/dL (8.5-10.1); Chloride 105 mmol/L (98-107); Estimated GFR 48.96 (mL/min/1.73m2); Glucose 124 mg/dL (74-106); Magnesium 2.2 mg/dL (1.8-2.4); Potassium 4.2 mmol/L (3.5-5.1); Sodium 142 mmol/L (136-145); Total Protein 7.1 g/dL (6.4-8.2)
== END 2021-07-29 04:07 | disposition home or self-care (01) ==
LOC: LBO 04:06
PROVIDERS: PCP Nurse Practitioner; Visit Provider Internal Medicine Medical Oncology
DX: C79.31 Secondary malignant neoplasm of brain (principal)
CPT/HCPCS: 36415; 80053; 83735; 85025

== ENCOUNTER 2021-08-19 04:04 | Outpatient (CLI) | payer MEDICARE, OTHER, SELFPAY ==
[2021-08-19 08:31] LABS: Abs Immature Grans 0.01 10^3/uL (0.0-0.06); Absolute Basophil Count 0.09 10^3/uL (0.0-0.2); Absolute Eosinophil Count 0.33 10^3/uL (0.0-0.7); Absolute Lymphocyte Count 1.68 10^3/uL (1.2-3.4); Absolute Monocyte Count 0.46 10^3/uL (0.1-0.8); Absolute Neutrophil Count 2.22 10^3/uL (1.2-6.7); Basophils % 1.9; Eosinophils % 6.9; HGB 10.9 g/dL (11.2-15.7); Immature Grans % 0.2; Lymphocytes % 35.1; MCH 34.7 pg (27.0-33.0); MCHC 32.1 % (32.0-36.0); MCV 108 fL (80-95); MPV 9.6 fL (8.0-11.0); Monocytes % 9.6; Neutrophils % 46.3; Platelet Count 361 10^3/uL (130-400); RBC 3.14 10^6/uL (3.93-5.22); RDW 14.6 % (11.7-14.6); RDW-SD 57.6 fL; WBC 4.79 10^3/uL (4.4-10.8)
[2021-08-19 08:58] LABS: ALT 26 U/L (14-59); AST 30 U/L (15-37); Albumin 3.2 g/dL (3.4-5.0); Alkaline Phosphatase 72 U/L (46-116); Anion Gap 9.3 mmol/L (3-11); BUN 23 mg/dL (7-18); Bilirubin, Total 0.2 mg/dL (0.2-1.0); CO2 26.7 mmol/L (21.0-32.0); CREATININE 1.2 mg/dL (0.55-1.02); Calcium 9.6 mg/dL (8.5-10.1); Chloride 104 mmol/L (98-107); Estimated GFR 44.29 (mL/min/1.73m2); Glucose 108 mg/dL (74-106); Magnesium 2.1 mg/dL (1.8-2.4); Potassium 3.8 mmol/L (3.5-5.1); Sodium 140 mmol/L (136-145); Total Protein 7.4 g/dL (6.4-8.2)
== END 2021-08-19 04:05 | disposition home or self-care (01) ==
PROVIDERS: PCP Nurse Practitioner; Visit Provider Internal Medicine Medical Oncology
DX: C79.31 Secondary malignant neoplasm of brain (principal)
CPT/HCPCS: 36415; 80053; 83735; 85025

== ENCOUNTER 2021-09-16 03:06 | Outpatient (CLI) | payer MEDICARE, OTHER, SELFPAY ==
[2021-09-16 07:45] LABS: Abs Immature Grans 0.02 10^3/uL (0.0-0.06); Absolute Basophil Count 0.09 10^3/uL (0.0-0.2); Absolute Eosinophil Count 0.42 10^3/uL (0.0-0.7); Absolute Lymphocyte Count 2.24 10^3/uL (1.2-3.4); Absolute Monocyte Count 0.52 10^3/uL (0.1-0.8); Absolute Neutrophil Count 1.64 10^3/uL (1.2-6.7); Basophils % 1.8; Eosinophils % 8.5; HCT 34.1 % (36.0-46.0); HGB 10.6 g/dL (11.2-15.7); Immature Grans % 0.4; Lymphocytes % 45.4; MCH 33.8 pg (27.0-33.0); MCHC 31.1 % (32.0-36.0); MCV 109 fL (80-95); MPV 9.5 fL (8.0-11.0); Monocytes % 10.5; Neutrophils % 33.4; Platelet Count 353 10^3/uL (130-400); RBC 3.14 10^6/uL (3.93-5.22); RDW 14.9 % (11.7-14.6); RDW-SD 59.5 fL; WBC 4.93 10^3/uL (4.4-10.8)
[2021-09-16 08:00] LABS: ALT 26 U/L (14-59); AST 23 U/L (15-37); Albumin 3.1 g/dL (3.4-5.0); Alkaline Phosphatase 78 U/L (46-116); Anion Gap 8.2 mmol/L (3-11); BUN 22 mg/dL (7-18); Bilirubin, Total 0.2 mg/dL (0.2-1.0); CO2 30.8 mmol/L (21.0-32.0); CREATININE 1.2 mg/dL (0.55-1.02); Calcium 9.8 mg/dL (8.5-10.1); Chloride 106 mmol/L (98-107); Estimated GFR 44.29 (mL/min/1.73m2); Glucose 110 mg/dL (74-106); Magnesium 2.2 mg/dL (1.8-2.4); Potassium 4.2 mmol/L (3.5-5.1); Sodium 145 mmol/L (136-145); Total Protein 7.5 g/dL (6.4-8.2)
[2021-09-16 08:04] LABS: Diff Comment Agrees w/ Instrument; Macrocytosis 2+
== END 2021-09-16 03:07 | disposition home or self-care (01) ==
LOC: LBO 03:06
PROVIDERS: PCP Nurse Practitioner; Visit Provider Internal Medicine Medical Oncology
DX: C79.31 Secondary malignant neoplasm of brain (principal)
CPT/HCPCS: 36415; 80053; 83735; 85025

== ENCOUNTER → 2021-09-18 09:26 | Outpatient (BNVA) | payer MEDICARE, OTHER, SELFPAY | PROVIDERS: PCP Nurse Practitioner; Referring Provider Nurse Practitioner; Visit Provider Student in an Organized Health Care Education/Training Program | DX: M75.101 Unspecified rotator cuff tear or rupture of right shoulder, not specified as traumatic (principal); M12.811 Other specific arthropathies, not elsewhere classified, right shoulder | CPT/HCPCS: 99214 ==

== ENCOUNTER 2021-10-07 04:13 | Outpatient (CLI) | payer MEDICARE, OTHER, SELFPAY ==
[2021-10-07 12:39] LABS: Abs Immature Grans 0.01 10^3/uL (0.0-0.06); Absolute Basophil Count 0.07 10^3/uL (0.0-0.2); Absolute Eosinophil Count 0.33 10^3/uL (0.0-0.7); Absolute Lymphocyte Count 2.13 10^3/uL (1.2-3.4); Absolute Monocyte Count 0.42 10^3/uL (0.1-0.8); Absolute Neutrophil Count 2.45 10^3/uL (1.2-6.7); Basophils % 1.3; Eosinophils % 6.1; HCT 34.3 % (36.0-46.0); HGB 10.8 g/dL (11.2-15.7); Immature Grans % 0.2; Lymphocytes % 39.4; MCHC 31.5 % (32.0-36.0); MCV 108 fL (80-95); MPV 9.7 fL (8.0-11.0); Monocytes % 7.8; Neutrophils % 45.2; Platelet Count 387 10^3/uL (130-400); RBC 3.18 10^6/uL (3.93-5.22); RDW-SD 62.9 fL; WBC 5.41 10^3/uL (4.4-10.8)
[2021-10-07 12:53] LABS: ALT 25 U/L (14-59); AST 29 U/L (15-37); Albumin 3.2 g/dL (3.4-5.0); Alkaline Phosphatase 70 U/L (46-116); Anion Gap 5.6 mmol/L (3-11); BUN 17 mg/dL (7-18); Bilirubin, Total 0.2 mg/dL (0.2-1.0); CO2 27.4 mmol/L (21.0-32.0); CREATININE 1.2 mg/dL (0.55-1.02); Calcium 9.8 mg/dL (8.5-10.1); Chloride 103 mmol/L (98-107); Estimated GFR 44.29 (mL/min/1.73m2); Glucose 86 mg/dL (74-106); Magnesium 2.7 mg/dL (1.8-2.4); Potassium 4.1 mmol/L (3.5-5.1); Sodium 136 mmol/L (136-145); Total Protein 7.6 g/dL (6.4-8.2)
== END 2021-10-07 04:14 | disposition home or self-care (01) ==
LOC: LBO 04:14
PROVIDERS: PCP Nurse Practitioner; Visit Provider Internal Medicine Medical Oncology
DX: C79.31 Secondary malignant neoplasm of brain (principal)
CPT/HCPCS: 36415; 80053; 83735; 85025

== ENCOUNTER → 2021-10-16 01:36 | Outpatient (CLI) | payer MEDICARE, OTHER, SELFPAY ==
--- NOTE | 2021-10-16 | DI.MRI_ITS ---
Exam(s) MR BRAIN WO/W EXAM: MR BRAIN WO/W CLINICAL HISTORY: BRAIN METS, C79.31, PRIM MALIGNANT NEOPLASM LT UPPER LOBE TECHNIQUE: Multiplanar multisequence MRI of the brain was performed. Post contrast imaging was also obtained, with T1 weighted axial and coronal imaging and multi planar T1 MP rage imaging. COMPARISON: MR MR BRAIN WO/W from 04/05/2021 FINDINGS: The ventricular system is normal in appearance. There are multiple areas of periventricular signal abnormality consistent with microvascular ischemic changes, unchanged from prior examination of March 2021.. The orbital and temporal bone structures appear intact as does the pituitary. Diffusion weighted imaging shows no evidence of infarction. Susceptibility weighted imaging shows no evidence of intracranial hemorrhage. There is normal flow void in the [place] vasculature. A previously noted left thalamic enhancing lesion is much less easily seen on today's examination, th is is faintly seen on the MP rage images but not visible on the standard T1 weighted post contrast im aging. This measures about 6 millimeters in diameter which is grossly unchanged from prior study. IMPRESSION: Markedly decreased prominence of left thalamic metastatic lesion since the prior examination. This i s very faintly seen on MP rage images only. DATA REPOSITORY:
[2021-10-16] MEDS: Normal Saline Flush 10 ML SYR IVP (09:35)
== END ==
PROVIDERS: PCP Nurse Practitioner; Visit Provider Internal Medicine Medical Oncology
DX: C79.31 Secondary malignant neoplasm of brain (principal)
CPT/HCPCS: 70553

== ENCOUNTER 2021-10-28 03:45 | Outpatient (CLI) | payer MEDICARE, OTHER, SELFPAY ==
[2021-10-28 12:08] LABS: Abs Immature Grans 0.03 10^3/uL (0.0-0.06); Absolute Basophil Count 0.08 10^3/uL (0.0-0.2); Absolute Eosinophil Count 0.28 10^3/uL (0.0-0.7); Absolute Lymphocyte Count 2.12 10^3/uL (1.2-3.4); Absolute Monocyte Count 0.61 10^3/uL (0.1-0.8); Absolute Neutrophil Count 3.56 10^3/uL (1.2-6.7); Basophils % 1.2; Eosinophils % 4.2; HCT 32.9 % (36.0-46.0); HGB 10.4 g/dL (11.2-15.7); Immature Grans % 0.4; Lymphocytes % 31.7; MCHC 31.6 % (32.0-36.0); MCV 108 fL (80-95); MPV 9.6 fL (8.0-11.0); Monocytes % 9.1; Neutrophils % 53.4; Platelet Count 400 10^3/uL (130-400); RBC 3.06 10^6/uL (3.93-5.22); RDW 16.5 % (11.7-14.6); RDW-SD 64.8 fL; WBC 6.68 10^3/uL (4.4-10.8)
[2021-10-28 12:22] LABS: ALT 34 U/L (14-59); AST 33 U/L (15-37); Albumin 3.1 g/dL (3.4-5.0); Alkaline Phosphatase 89 U/L (46-116); Anion Gap 6.8 mmol/L (3-11); BUN 17 mg/dL (7-18); Bilirubin, Total 0.1 mg/dL (0.2-1.0); CO2 30.2 mmol/L (21.0-32.0); CREATININE 1.1 mg/dL (0.55-1.02); Chloride 103 mmol/L (98-107); Estimated GFR 48.96 (mL/min/1.73m2); Glucose 91 mg/dL (74-106); Magnesium 2.5 mg/dL (1.8-2.4); Potassium 4.3 mmol/L (3.5-5.1); Sodium 140 mmol/L (136-145); Total Protein 7.8 g/dL (6.4-8.2)
== END 2021-10-28 03:46 | disposition home or self-care (01) ==
LOC: LBO 03:45
PROVIDERS: PCP Nurse Practitioner; Visit Provider Internal Medicine Medical Oncology
DX: C79.31 Secondary malignant neoplasm of brain (principal)
CPT/HCPCS: 36415; 80053; 83735; 85025

== ENCOUNTER → 2021-11-05 01:02 | Outpatient (CLI) | payer MEDICARE, OTHER, SELFPAY ==
--- NOTE | 2021-11-05 15:15 | DI.CT_ITS ---
Exam(s) CT CHEST W EXAM: CT CHEST W CLINICAL HISTORY: NON-SMALL CELL LUNG CA, AMIE, C34.12; BRAIN METS, C79.31; RESTAGING TECHNIQUE: CT examination of the chest was performed with intravenous infusion of 70 cc of Omnipaque 350. COMPARISON: CT CT CHEST WO from 07/24/2021 FINDINGS: Today's examination is compared with prior examination of July 24, 2021. There is reportedly a histor y of non-small cell lung carcinoma. The previously described left upper lobe spiculated mass is again noted, this may be slightly larger on today's examination, measuring up to 18 millimeters in greatest diameter. No new mediastinal or h ilar adenopathy. Mild prominence of pretracheal and AP window nodes again noted. There is no eviden ce of pleural effusion. There is no evidence of pulmonary embolic disease. There is unremarkable appearance of the thoracic aorta and major branches with no evidence of aneurysm or dissection. . Tracheobronchial tree appears intact. No axillary or supraclavicular adenopathy. Visualized portions of the liver, spleen, adrenals, and kidneys are unremarkable. No abnormality seen involving the bony thorax. IMPRESSION: Slight interval increase in size of left upper lobe spiculated lesion consistent with lung carcinoma. No additional new significant findings.. RADIATION DOSE DELIVERED: 394.65mGy.cm Total DLP 394.65mGy.cm Total DLP !Error CTDIvol DATA REPOSITORY: All CT scans at this facility are submitted to the National Radiology Data Registry (NRDR) Dose Index Registry (DIR) with the [employer] (ACR). RADIATION OPTIMIZATION: All CT scans at this facility use at least one of these dose optimization te chniques: automated exposure control; mA and/or kV adjustment per patient size (includes targeted exa ms where dose is matched to clinical indication); or iterative reconstruction.
[2021-11-05] MEDS: Omnipaque 350 MG/ML 100 ML BTL IJ (15:34)
== END ==
PROVIDERS: PCP Nurse Practitioner; Visit Provider Internal Medicine Medical Oncology
DX: R91.8 Other nonspecific abnormal finding of lung field (principal); C34.12 Malignant neoplasm of upper lobe, left bronchus or lung; C79.31 Secondary malignant neoplasm of brain
CPT/HCPCS: 71260; J3490

== ENCOUNTER 2021-11-18 03:49 | Outpatient (CLI) | payer MEDICARE, OTHER, SELFPAY ==
[2021-11-18 13:47] LABS: Abs Immature Grans 0.01 10^3/uL (0.0-0.06); HCT 31.1 % (36.0-46.0); HGB 9.8 g/dL (11.2-15.7); MCH 34.1 pg (27.0-33.0); MCHC 31.5 % (32.0-36.0); MCV 108 fL (80-95); MPV 9.3 fL (8.0-11.0); Platelet Count 420 10^3/uL (130-400); RBC 2.87 10^6/uL (3.93-5.22); WBC 5.64 10^3/uL (4.4-10.8)
[2021-11-18 14:11] LABS: ALT 23 U/L (14-59); AST 30 U/L (15-37); Alkaline Phosphatase 93 U/L (46-116); BUN 18 mg/dL (7-18); Bilirubin, Total 0.2 mg/dL (0.2-1.0); CREATININE 1.2 mg/dL (0.55-1.02); Calcium 9.7 mg/dL (8.5-10.1); Chloride 102 mmol/L (98-107); Estimated GFR 48.09 (mL/min/1.73m2); Glucose 87 mg/dL (74-106); Magnesium 2.3 mg/dL (1.8-2.4); Potassium 4.2 mmol/L (3.5-5.1); Sodium 137 mmol/L (136-145); Total Protein 7.6 g/dL (6.4-8.2)
[2021-11-18 14:15] LABS: Absolute Eosinophil Count 0.28 10^3/uL (0.0-0.7); Absolute Lymphocyte Count 2.54 10^3/uL (1.2-3.4); Absolute Monocyte Count 0.17 10^3/uL (0.1-0.8); Absolute Neutrophil Count 2.65 10^3/uL (1.2-6.7); Atypical Lymphocytes % 2; Bands % 0
[2021-11-18 14:16] LABS: Diff Comment Manual Differential; Macrocytosis 1+
== END 2021-11-18 03:50 | disposition home or self-care (01) ==
LOC: LBO 03:49
PROVIDERS: PCP Nurse Practitioner; Visit Provider Internal Medicine Medical Oncology
DX: C79.31 Secondary malignant neoplasm of brain (principal)
CPT/HCPCS: 36415; 80053; 83735; 85025

== ENCOUNTER 2021-12-09 04:39 | Outpatient (CLI) | payer MEDICARE, OTHER, SELFPAY ==
[2021-12-09 10:17] LABS: Abs Immature Grans 0.02 10^3/uL (0.0-0.06); Absolute Eosinophil Count 0.31 10^3/uL (0.0-0.7); Absolute Lymphocyte Count 2.09 10^3/uL (1.2-3.4); Absolute Monocyte Count 0.53 10^3/uL (0.1-0.8); Absolute Neutrophil Count 2.94 10^3/uL (1.2-6.7); Basophils % 1.7; Eosinophils % 5.2; HCT 32.8 % (36.0-46.0); HGB 10.4 g/dL (11.2-15.7); Immature Grans % 0.3; Lymphocytes % 34.9; MCH 35.1 pg (27.0-33.0); MCHC 31.7 % (32.0-36.0); MCV 111 fL (80-95); MPV 9.4 fL (8.0-11.0); Monocytes % 8.8; Neutrophils % 49.1; Platelet Count 433 10^3/uL (130-400); RBC 2.96 10^6/uL (3.93-5.22); RDW 17.2 % (11.7-14.6); RDW-SD 70.3 fL; WBC 5.99 10^3/uL (4.4-10.8)
[2021-12-09 10:18] LABS: Bilirubin Negative (Negative); Blood Negative (Negative); Clarity Sl Cloudy (Clear); Glucose Negative (Negative); Ketones Negative (Negative); Nitrite Negative (Negative); Urobilinogen 0.2 EU/dL (Up TO 0.2)
[2021-12-09 10:30] LABS: Leukocyte Esterase Moderate (Negative)
[2021-12-09 10:39] LABS: ALT 21 U/L (14-59); AST 25 U/L (15-37); Albumin 3.1 g/dL (3.4-5.0); Alkaline Phosphatase 85 U/L (46-116); Anion Gap 7.4 mmol/L (3-11); BUN 15 mg/dL (7-18); Bilirubin, Total 0.2 mg/dL (0.2-1.0); CO2 29.6 mmol/L (21.0-32.0); CREATININE 1.1 mg/dL (0.55-1.02); Calcium 9.8 mg/dL (8.5-10.1); Chloride 103 mmol/L (98-107); Estimated GFR 53.39 (mL/min/1.73m2); Glucose 97 mg/dL (74-106); Magnesium 2.1 mg/dL (1.8-2.4); Potassium 3.9 mmol/L (3.5-5.1); Sodium 140 mmol/L (136-145); Total Protein 7.6 g/dL (6.4-8.2)
== END 2021-12-09 04:40 | disposition home or self-care (01) ==
LOC: LBO 04:41
PROVIDERS: PCP Nurse Practitioner; Visit Provider Internal Medicine Medical Oncology
DX: C34.12 Malignant neoplasm of upper lobe, left bronchus or lung (principal); C79.31 Secondary malignant neoplasm of brain
CPT/HCPCS: 36415; 80053; 81003; 83735; 85025

== ENCOUNTER → 2021-12-26 02:53 | Outpatient (CLI) | payer MEDICARE, OTHER, SELFPAY ==
--- NOTE | 2021-12-26 13:00 | DI.CT_ITS ---
Exam(s) CT CHEST W EXAM: CT CHEST W CLINICAL HISTORY: METASTATIC LUNG CA, C34.12, BRAIN METS, C79.31, RESTAGING TECHNIQUE: CT examination of the chest was performed with intravenous infusion of 70 cc of Omnipaque 350. COMPARISON: CT CT CHEST W from 11/05/2021 FINDINGS: The previously noted left upper lobe spiculated lesion consistent with the patient's history of lung carcinoma seen on examination of November 05 is grossly unchanged on today's examination and again me asures about 18 millimeters in diameter. There is a new 7 millimeter in diameter left lower lobe intrapulmonary nodule period there are multip le small focal ground-glass and consolidative opacities in the left lung which are nonspecific but wh ich could represent infectious process or metastatic disease. Right lung also contains a few nonspec ific ground-glass areas of abnormal radiodensity which are new. There is apparent consolidation and/ or atelectasis of the right lung base which was not present on the prior examination. There is no ev idence of pleural effusion. There is no evidence of pulmonary embolic disease. There is unremarkable appearance of the thoracic aorta and major branches with no evidence of aneurysm or dissection. Mild prominence of central mediastinal nodes in AP window and pretracheal region again noted, slight interval increase in size of AP window node from 10 millimeters to 11 millimeters noted period. Trac heobronchial tree appears intact. No axillary or supraclavicular adenopathy. Visualized portions of the liver, spleen, adrenals, and kidneys are unremarkable. No abnormality seen involving the bony thorax. IMPRESSION: Multiple new bilateral areas of ground-glass and consolidative opacity, infectious process and or int rapulmonary metastatic disease. New 7 millimeter left lower lobe pulmonary nodule, presumably metast atic.. RADIATION DOSE DELIVERED: 397.3mGy.cm Total DLP 397.3mGy.cm Total DLP !Error CTDIvol DATA REPOSITORY: All CT scans at this facility are submitted to the National Radiology Data Registry (NRDR) Dose Index Registry (DIR) with the [employer] (ACR). RADIATION OPTIMIZATION: All CT scans at this facility use at least one of these dose optimization te chniques: automated exposure control; mA and/or kV adjustment per patient size (includes targeted exa ms where dose is matched to clinical indication); or iterative reconstruction.
[2021-12-26] MEDS: Omnipaque 350 MG/ML 500 ML BTL-Imaging package 70 ML IJ (13:43)
[2021-12-26] MEDS: Normal Saline Flush 10 ML SYR IVP (13:44)
== END ==
PROVIDERS: PCP Nurse Practitioner; Visit Provider Internal Medicine Medical Oncology
DX: C34.12 Malignant neoplasm of upper lobe, left bronchus or lung (principal); C79.31 Secondary malignant neoplasm of brain
CPT/HCPCS: 71260

== ENCOUNTER 2021-12-30 03:01 | Outpatient (CLI) | payer MEDICARE, OTHER, SELFPAY ==
[2021-12-30 08:15] LABS: Abs Immature Grans 0.04 10^3/uL (0.0-0.06); Absolute Basophil Count 0.08 10^3/uL (0.0-0.2); Absolute Eosinophil Count 0.28 10^3/uL (0.0-0.7); Absolute Lymphocyte Count 2.33 10^3/uL (1.2-3.4); Absolute Monocyte Count 0.66 10^3/uL (0.1-0.8); Absolute Neutrophil Count 3.13 10^3/uL (1.2-6.7); Basophils % 1.2; Eosinophils % 4.3; HCT 29.7 % (36.0-46.0); HGB 9.2 g/dL (11.2-15.7); Immature Grans % 0.6; Lymphocytes % 35.7; MCH 34.5 pg (27.0-33.0); MCV 111 fL (80-95); MPV 9.8 fL (8.0-11.0); Monocytes % 10.1; Neutrophils % 48.1; Platelet Count 478 10^3/uL (130-400); RBC 2.67 10^6/uL (3.93-5.22); RDW 16.5 % (11.7-14.6); RDW-SD 66.6 fL; WBC 6.52 10^3/uL (4.4-10.8)
[2021-12-30 08:19] LABS: Bilirubin Negative (Negative); Blood Trace-intact (Negative); Clarity Clear (Clear); Glucose Negative (Negative); Ketones Negative (Negative); Leukocyte Esterase Large (Negative); Nitrite Negative (Negative); Specific Gravity 1.025 (1.005-1.025); Urobilinogen 0.2 EU/dL (Up TO 0.2); pH 6.5 (5-8)
[2021-12-30 08:34] LABS: ALT 19 U/L (14-59); AST 23 U/L (15-37); Albumin 2.5 g/dL (3.4-5.0); Alkaline Phosphatase 83 U/L (46-116); Anion Gap 10.7 mmol/L (3-11); BUN 11 mg/dL (7-18); Bilirubin, Total 0.2 mg/dL (0.2-1.0); CO2 25.3 mmol/L (21.0-32.0); CREATININE 1.3 mg/dL (0.55-1.02); Calcium 9.9 mg/dL (8.5-10.1); Chloride 106 mmol/L (98-107); Estimated GFR 43.69 (mL/min/1.73m2); Glucose 107 mg/dL (74-106); Potassium 3.5 mmol/L (3.5-5.1); Sodium 142 mmol/L (136-145)
== END 2021-12-30 03:02 | disposition home or self-care (01) ==
LOC: LBO 03:01
PROVIDERS: PCP Nurse Practitioner; Visit Provider Internal Medicine Medical Oncology
DX: C79.31 Secondary malignant neoplasm of brain (principal); C34.12 Malignant neoplasm of upper lobe, left bronchus or lung; R82.998 Other abnormal findings in urine
CPT/HCPCS: 36415; 80053; 81003; 83735; 85025

== ENCOUNTER → 2022-01-08 01:41 | Outpatient (CLI) | payer MEDICARE, OTHER, SELFPAY ==
--- NOTE | 2022-01-08 07:15 | DI.CT_ITS ---
Exam(s) CT ABDOMEN PELVIS W EXAM: CT ABDOMEN PELVIS W CLINICAL HISTORY: New LE edema,Known lung CAI89.0. TECHNIQUE: Imaging Protocol: Axial computed tomography images with coronal and sagittal reformatted images were created and reviewed CONTRAST MATERIAL: Intravenous: Omnipaque 350 Contrast volume:100 ml Oral: yes COMPARISON: CT CT ABDOMEN PELVIS WO from 01/13/[address] CHEST W from 12/26/2021 FINDINGS: ABDOMEN: Lung Bases: Fibrotic changes. Liver: Normal density. No measurable mass. Gallbladder and biliary tract: No radiodense calculus or dilation. Pancreas: Normal density, no abnormal calcifications or inflammatory process. Spleen: Normal. Kidneys: Normal size, contour and axis. No radiodense stones or obstructive uropathy. No masses seen. Adrenal glands: No masses seen. Abdominal Aorta: 3.5 centimeter abdominal aortic aneurysm. Atherosclerotic changes. Iliac arteries also show calcification. No vascular occlusion. PELVIS: Bladder: No gross wall thickening. No calculi.No focal mass. Bowel: No obstruction or bowel wall thickening. Appendix normal.Large quantity of stool in rectum. Peritoneal cavity: No ascites, collection or mesenteric inflammatory response. Bones: No lytic or blastic lesion visible. Degenerative disc changes greatest at L5-S1. Reproductive organs: Within normal limits. Lymph nodes: Unremarkable. Impression: No evidence of metastatic disease or adenopathy. 3.5 centimeter abdominal aortic aneurysm. RADIATION DOSE DELIVERED: 1,112.33mGy.cm Total DLP DATA REPOSITORY: All CT scans at this facility are submitted to the National Radiology Data Registry (NRDR) Dose Index Registry (DIR) with the [employer] (ACR). RADIATION OPTIMIZATION: All CT scans at this facility use at least one of these dose optimization te chniques: automated exposure control; mA and/or kV adjustment per patient size (includes targeted exa ms where dose is matched to clinical indication); or iterative reconstruction.
[2022-01-08] MEDS: Barium Sulfate 2% W/V-Berry Smoothie 450 ML BTL PO (09:00)
[2022-01-08] MEDS: Omnipaque 350 MG/ML 500 ML BTL-Imaging package IJ (10:48)
== END ==
PROVIDERS: PCP Nurse Practitioner; Visit Provider Family Medicine
DX: C34.12 Malignant neoplasm of upper lobe, left bronchus or lung (principal)
CPT/HCPCS: 74177

== ENCOUNTER 2022-01-20 04:06 | Outpatient (CLI) | payer MEDICARE, OTHER, SELFPAY ==
[2022-01-20 07:58] LABS: Abs Immature Grans 0.02 10^3/uL (0.0-0.06); Absolute Eosinophil Count 0.39 10^3/uL (0.0-0.7); Absolute Monocyte Count 0.51 10^3/uL (0.1-0.8); Absolute Neutrophil Count 2.56 10^3/uL (1.2-6.7); Basophils % 1.6; Eosinophils % 6.4; HCT 32.9 % (36.0-46.0); HGB 10.6 g/dL (11.2-15.7); Immature Grans % 0.3; Lymphocytes % 41.1; MCH 34.8 pg (27.0-33.0); MCHC 32.2 % (32.0-36.0); MCV 108 fL (80-95); MPV 9.6 fL (8.0-11.0); Monocytes % 8.4; Neutrophils % 42.2; Platelet Count 324 10^3/uL (130-400); RBC 3.05 10^6/uL (3.93-5.22); RDW 15.4 % (11.7-14.6); RDW-SD 61.9 fL; WBC 6.08 10^3/uL (4.4-10.8)
[2022-01-20 08:07] LABS: Bilirubin Negative (Negative); Blood Negative (Negative); Clarity Sl Cloudy (Clear); Glucose Negative (Negative); Ketones Negative (Negative); Leukocyte Esterase Large (Negative); Nitrite Negative (Negative); Specific Gravity 1.025 (1.005-1.025); Urobilinogen 0.2 EU/dL (Up TO 0.2)
[2022-01-20 08:12] LABS: Macrocytosis 1+; Polychromasia Present
[2022-01-20 08:14] LABS: WBC >50 HPF (0-5)
[2022-01-20 08:15] LABS: Bacteria Many HPF (Negative); C & S Indicated? No/Sq. Contamination; Casts Negative LPF (Negative); Crystals Negative HPF (Negative); Epithelial Cells Many HPF (Negative); Mucus Heavy (Negative); Other Cells Negative (Negative)
[2022-01-20 08:39] LABS: ALT 14 U/L (14-59); AST 22 U/L (15-37); Albumin 3.1 g/dL (3.4-5.0); Alkaline Phosphatase 79 U/L (46-116); Anion Gap 8.1 mmol/L (3-11); BUN 17 mg/dL (7-18); Bilirubin, Total 0.4 mg/dL (0.2-1.0); CO2 27.9 mmol/L (21.0-32.0); CREATININE 1.2 mg/dL (0.55-1.02); Calcium 10.1 mg/dL (8.5-10.1); Chloride 103 mmol/L (98-107); Estimated GFR 48.09 (mL/min/1.73m2); Glucose 82 mg/dL (74-106); Magnesium 1.9 mg/dL (1.8-2.4); Potassium 3.6 mmol/L (3.5-5.1); Sodium 139 mmol/L (136-145); Total Protein 7.9 g/dL (6.4-8.2)
== END 2022-01-20 04:07 | disposition home or self-care (01) ==
LOC: LBO 04:06
PROVIDERS: PCP Nurse Practitioner; Visit Provider Internal Medicine Medical Oncology
DX: C79.31 Secondary malignant neoplasm of brain (principal); C34.12 Malignant neoplasm of upper lobe, left bronchus or lung
CPT/HCPCS: 36415; 80053; 81003; 81015; 83735; 85025

== ENCOUNTER → 2022-02-03 01:44 | Outpatient (CLI) | payer MEDICARE, OTHER, SELFPAY ==
--- NOTE | 2022-02-03 | DI.CT_ITS ---
Exam(s) CT CHEST WO EXAM: CT CHEST WO CLINICAL HISTORY: LUNG CANCER C34.12 BRAIN METS C79.31 POST TREATMENT TECHNIQUE: Imaging Protocol: Axial computed tomography images with coronal and sagittal reformatted images were created and reviewed CONTRAST MATERIAL: Intravenous: Omnipaque 350 Contrast volume:structured data ml. COMPARISON: CT CT CHEST W from 12/26/2021 FINDINGS: Tracheobronchial tree: No bronchiectasis or mucous plugging. Pulmonary parenchyma: Interval resolution of previously noted bilateral infiltrates which were most d ense in the right lower lobe. Significant interval increase in size of metastatic nodule in the medi al superior segment of the left lower lobe to 11 millimeters. No change in spiculated lesion anterio r left upper lobe 19 millimeters.. Underlying fibrotic changes. Pleura: No effusion or pneumothorax. Heart: The heart is not dilated. coronary artery calcifications are seen. Aorta: Thoracic aorta non-dilated. Upper abdomen: Unremarkable. Lymph nodes: 11 millimeter precarinal lymph node, unchanged. mild interval increase in AP window ly mph node to 9 by it 15 millimeters. Bones: Degenerative changes. No lytic or blastic lesions. Soft tissues: Unremarkable. IMPRESSION: Stable 19 millimeters spiculated mass in the left upper lobe. Interval increase in size of left lowe r lobe lesion to 11 millimeters. RADIATION DOSE DELIVERED: 382.04mGy.cm Total DLP DATA REPOSITORY: All CT scans at this facility are submitted to the National Radiology Data Registry (NRDR) Dose Index Registry (DIR) with the [employer] (ACR). RADIATION OPTIMIZATION: All CT scans at this facility use at least one of these dose optimization te chniques: automated exposure control; mA and/or kV adjustment per patient size (includes targeted exa ms where dose is matched to clinical indication); or iterative reconstruction.
== END ==
PROVIDERS: PCP Nurse Practitioner; Visit Provider Internal Medicine Medical Oncology
DX: C34.12 Malignant neoplasm of upper lobe, left bronchus or lung (principal); C79.31 Secondary malignant neoplasm of brain; R59.0 Localized enlarged lymph nodes
CPT/HCPCS: 71250

== ENCOUNTER 2022-02-10 04:14 | Outpatient (CLI) | payer MEDICARE, OTHER, SELFPAY ==
[2022-02-10 08:04] LABS: Abs Immature Grans 0.01 10^3/uL (0.0-0.06); Absolute Basophil Count 0.08 10^3/uL (0.0-0.2); Absolute Lymphocyte Count 1.97 10^3/uL (1.2-3.4); Absolute Neutrophil Count 1.57 10^3/uL (1.2-6.7); Basophils % 1.8; Eosinophils % 6.8; HCT 31.4 % (36.0-46.0); HGB 9.8 g/dL (11.2-15.7); Immature Grans % 0.2; Lymphocytes % 44.5; MCH 34.9 pg (27.0-33.0); MCHC 31.2 % (32.0-36.0); MCV 112 fL (80-95); MPV 9.3 fL (8.0-11.0); Monocytes % 11.3; Neutrophils % 35.4; Platelet Count 403 10^3/uL (130-400); RBC 2.81 10^6/uL (3.93-5.22); RDW 16.2 % (11.7-14.6); RDW-SD 67.5 fL; WBC 4.43 10^3/uL (4.4-10.8)
[2022-02-10 08:15] LABS: Diff Comment RBC Morph Reviewed; Macrocytosis 1+
[2022-02-10 08:20] LABS: ALT 23 U/L (14-59); AST 22 U/L (15-37); Albumin 2.9 g/dL (3.4-5.0); Alkaline Phosphatase 83 U/L (46-116); Anion Gap 8.2 mmol/L (3-11); BUN 15 mg/dL (7-18); Bilirubin, Total 0.2 mg/dL (0.2-1.0); CO2 27.8 mmol/L (21.0-32.0); CREATININE 1.2 mg/dL (0.55-1.02); Calcium 9.5 mg/dL (8.5-10.1); Chloride 104 mmol/L (98-107); Estimated GFR 48.09 (mL/min/1.73m2); Glucose 87 mg/dL (74-106); Magnesium 2.2 mg/dL (1.8-2.4); Potassium 3.9 mmol/L (3.5-5.1); Sodium 140 mmol/L (136-145); Total Protein 7.6 g/dL (6.4-8.2)
[2022-02-10 10:47] LABS: FREE T4 0.85 ng/dL (0.76-1.46); TSH 6.28 uIU/mL (0.36-3.74)
== END 2022-02-10 04:15 | disposition home or self-care (01) ==
PROVIDERS: Internal Medicine Medical Oncology; PCP Nurse Practitioner; Visit Provider Nurse Practitioner Family
DX: C34.12 Malignant neoplasm of upper lobe, left bronchus or lung (principal); Z79.899 Other long term (current) drug therapy; C79.31 Secondary malignant neoplasm of brain
CPT/HCPCS: 36415; 80053; 81003; 83735; 84439; 84443; 85025

== ENCOUNTER 2022-03-17 03:07 | Outpatient (CLI) | payer MEDICARE, OTHER, SELFPAY ==
[2022-03-17 10:09] LABS: Abs Immature Grans 0.03 10^3/uL (0.0-0.06); Absolute Basophil Count 0.09 10^3/uL (0.0-0.2); Absolute Eosinophil Count 0.32 10^3/uL (0.0-0.7); Absolute Lymphocyte Count 1.67 10^3/uL (1.2-3.4); Absolute Monocyte Count 0.43 10^3/uL (0.1-0.8); Absolute Neutrophil Count 4.82 10^3/uL (1.2-6.7); Basophils % 1.2; Eosinophils % 4.3; HCT 33.2 % (36.0-46.0); HGB 10.1 g/dL (11.2-15.7); Immature Grans % 0.4; Lymphocytes % 22.7; MCHC 30.4 % (32.0-36.0); MCV 105 fL (80-95); MPV 9.5 fL (8.0-11.0); Monocytes % 5.8; Neutrophils % 65.6; Platelet Count 455 10^3/uL (130-400); RBC 3.16 10^6/uL (3.93-5.22); RDW 15.4 % (11.7-14.6); RDW-SD 60.1 fL; WBC 7.36 10^3/uL (4.4-10.8)
[2022-03-17 10:38] LABS: ALT 13 U/L (14-59); AST 22 U/L (15-37); Albumin 2.7 g/dL (3.4-5.0); Alkaline Phosphatase 87 U/L (46-116); BUN 15 mg/dL (7-18); Bilirubin, Total 0.3 mg/dL (0.2-1.0); CREATININE 1.5 mg/dL (0.55-1.02); Calcium 10.2 mg/dL (8.5-10.1); Chloride 102 mmol/L (98-107); FREE T4 1.07 ng/dL (0.76-1.46); Glucose 152 mg/dL (74-106); Magnesium 2.4 mg/dL (1.8-2.4); Potassium 3.9 mmol/L (3.5-5.1); Sodium 138 mmol/L (136-145); TSH 2.92 uIU/mL (0.36-3.74); Total Protein 8.8 g/dL (6.4-8.2)
== END 2022-03-17 03:08 | disposition home or self-care (01) ==
LOC: LBO 03:07
PROVIDERS: PCP Nurse Practitioner; Visit Provider Internal Medicine Medical Oncology
DX: Z79.899 Other long term (current) drug therapy (principal); C34.12 Malignant neoplasm of upper lobe, left bronchus or lung; C79.31 Secondary malignant neoplasm of brain
CPT/HCPCS: 36415; 80053; 83735; 84439; 84443; 85025

== ENCOUNTER 2022-04-03 01:16 | Outpatient (CLI) | payer MEDICARE, OTHER, SELFPAY ==
--- NOTE | 2022-04-03 08:55 | DI.CT_ITS ---
Exam(s) CT CHEST WO EXAM: CT CHEST WO CLINICAL HISTORY: H/O LUNG CA,C34.12,ON IMMUNOTHERAPY,RESTAGING EXAM. TECHNIQUE: Multi planar reconstructions were performed. CONTRAST MATERIAL: None COMPARISON: CT CT CHEST WO from 02/03/2022 FINDINGS: CHEST: LUNGS: The pleural based nodular infiltrate in the anterior segment of the left upper lobe exhibits m inimal if any significant change from 02/03/2022. Has not appreciably increased in size. There is n o adjacent rib destruction. The previously described left lower lobe nodule appears somewhat less well-defined on the present karli dy with proximally similar size. There are no new additional ominous focal left lung findings. No p leural effusions. In the opposite-right lung there are increasing parahilar more markings-infiltrate, without associate d pleural effusion. The above findings are superimposed upon chronic interstitial pattern. There are no new focal findings in the trachea and mainstem bronchi. MEDIASTINUM: There is increasing right paratracheal and subcarinal adenopathy. Slightly increased ly mph nodes right hilum. Left hilum is unchanged. Visualized thyroid unremarkable.No obvious axillary adenopathy. No supraclavicular adenopathy. Thyroid normal size. CARDIAC: Heart size is normal. There is no pericardial effusion.Caliber of the thoracic aorta is wit hin normal limits. VISUALIZED UPPER ABDOMEN:No adrenal masses. OSSEOUS: No significant osseous lesions.No fractures evident.. IMPRESSION: 1. Left lung previously described findings remain stable including left upper and left lower lobe nod ular infiltrates. However, there does appears to be subtle increase in right parahilar infiltrate ev ident. There are no pleural effusions. 2. There is increasing lymphadenopathy in the right paratracheal and subcarinal regions. Also mildly increased in right hilum. 3. There is a chronic interstitial pattern in the lungs also noted. RADIATION DOSE DELIVERED: 369.08mGy.cm Total DLP DATA REPOSITORY: All CT scans at this facility are submitted to the National Radiology Data Registry (NRDR) Dose Index Registry (DIR) with the [employer] (ACR). RADIATION OPTIMIZATION: All CT scans at this facility use at least one of these dose optimization te chniques: automated exposure control; mA and/or kV adjustment per patient size (includes targeted exa ms where dose is matched to clinical indication); or iterative reconstruction.
== END 2022-04-03 01:36 ==
LOC: DI 01:16
PROVIDERS: PCP Nurse Practitioner; Visit Provider Internal Medicine Medical Oncology
DX: C34.12 Malignant neoplasm of upper lobe, left bronchus or lung (principal)
CPT/HCPCS: 71250

== ENCOUNTER 2022-04-07 02:51 | Outpatient (CLI) | payer MEDICARE, OTHER, SELFPAY ==
[2022-04-07 08:00] LABS: Abs Immature Grans 0.02 10^3/uL (0.0-0.06); Absolute Basophil Count 0.08 10^3/uL (0.0-0.2); Absolute Eosinophil Count 0.27 10^3/uL (0.0-0.7); Absolute Lymphocyte Count 1.86 10^3/uL (1.2-3.4); Absolute Monocyte Count 0.54 10^3/uL (0.1-0.8); Absolute Neutrophil Count 3.92 10^3/uL (1.2-6.7); Basophils % 1.2; HCT 32.4 % (36.0-46.0); HGB 9.8 g/dL (11.2-15.7); Immature Grans % 0.3; Lymphocytes % 27.8; MCH 31.1 pg (27.0-33.0); MCHC 30.2 % (32.0-36.0); MCV 103 fL (80-95); MPV 9.4 fL (8.0-11.0); Monocytes % 8.1; Neutrophils % 58.6; Platelet Count 383 10^3/uL (130-400); RBC 3.15 10^6/uL (3.93-5.22); RDW 16.3 % (11.7-14.6); RDW-SD 62.4 fL; WBC 6.69 10^3/uL (4.4-10.8)
[2022-04-07 08:25] LABS: ALT 13 U/L (14-59); AST 18 U/L (15-37); Albumin 2.7 g/dL (3.4-5.0); Alkaline Phosphatase 91 U/L (46-116); Anion Gap 7.9 mmol/L (3-11); BUN 15 mg/dL (7-18); Bilirubin, Total 0.3 mg/dL (0.2-1.0); CO2 28.1 mmol/L (21.0-32.0); CREATININE 1.3 mg/dL (0.55-1.02); Calcium 10.2 mg/dL (8.5-10.1); Chloride 104 mmol/L (98-107); Estimated GFR 43.69 (mL/min/1.73m2); FREE T4 0.85 ng/dL (0.76-1.46); Glucose 95 mg/dL (74-106); Magnesium 2.3 mg/dL (1.8-2.4); Sodium 140 mmol/L (136-145); TSH 3.73 uIU/mL (0.36-3.74); Total Protein 8.2 g/dL (6.4-8.2)
== END 2022-04-07 02:52 | disposition home or self-care (01) ==
PROVIDERS: PCP Nurse Practitioner; Visit Provider Nurse Practitioner Family
DX: Z79.899 Other long term (current) drug therapy (principal); C34.12 Malignant neoplasm of upper lobe, left bronchus or lung
CPT/HCPCS: 36415; 80053; 83735; 84439; 84443; 85025

== ENCOUNTER 2022-04-28 02:36 | Outpatient (CLI) | payer MEDICARE, OTHER, SELFPAY ==
[2022-04-28 12:38] LABS: Abs Immature Grans 0.02 10^3/uL (0.0-0.06); Absolute Basophil Count 0.09 10^3/uL (0.0-0.2); Absolute Eosinophil Count 0.21 10^3/uL (0.0-0.7); Absolute Lymphocyte Count 2.23 10^3/uL (1.2-3.4); Absolute Monocyte Count 0.49 10^3/uL (0.1-0.8); Basophils % 1.3; HCT 33.7 % (36.0-46.0); HGB 10.2 g/dL (11.2-15.7); Immature Grans % 0.3; Lymphocytes % 31.7; MCH 30.4 pg (27.0-33.0); MCHC 30.3 % (32.0-36.0); MCV 100 fL (80-95); Neutrophils % 56.7; Platelet Count 344 10^3/uL (130-400); RBC 3.36 10^6/uL (3.93-5.22); RDW 16.9 % (11.7-14.6); RDW-SD 61.8 fL; WBC 7.04 10^3/uL (4.4-10.8)
[2022-04-28 13:04] LABS: ALT 20 U/L (14-59); AST 23 U/L (15-37); Alkaline Phosphatase 87 U/L (46-116); Anion Gap 7.9 mmol/L (3-11); BUN 23 mg/dL (7-18); Bilirubin, Total 0.2 mg/dL (0.2-1.0); CO2 28.1 mmol/L (21.0-32.0); CREATININE 1.4 mg/dL (0.55-1.02); Calcium 10.6 mg/dL (8.5-10.1); Chloride 104 mmol/L (98-107); Estimated GFR 39.97 (mL/min/1.73m2); FREE T4 0.83 ng/dL (0.76-1.46); Glucose 96 mg/dL (74-106); Magnesium 2.4 mg/dL (1.8-2.4); Potassium 4.3 mmol/L (3.5-5.1); Sodium 140 mmol/L (136-145); TSH 2.55 uIU/mL (0.36-3.74); Total Protein 8.2 g/dL (6.4-8.2)
== END 2022-04-28 02:37 | disposition home or self-care (01) ==
PROVIDERS: Internal Medicine Medical Oncology; PCP Nurse Practitioner; Visit Provider Nurse Practitioner Family
DX: Z79.899 Other long term (current) drug therapy (principal); C34.12 Malignant neoplasm of upper lobe, left bronchus or lung
CPT/HCPCS: 36415; 80053; 83735; 84439; 84443; 85025

== ENCOUNTER 2022-05-13 13:28 | Outpatient (CLI) | payer MEDICARE, OTHER, SELFPAY ==
[2022-05-13 10:22] LABS: Abs Immature Grans 0.02 10^3/uL (0.0-0.06); Absolute Basophil Count 0.08 10^3/uL (0.0-0.2); Absolute Eosinophil Count 0.31 10^3/uL (0.0-0.7); Absolute Lymphocyte Count 1.59 10^3/uL (1.2-3.4); Absolute Monocyte Count 0.45 10^3/uL (0.1-0.8); Absolute Neutrophil Count 3.84 10^3/uL (1.2-6.7); Basophils % 1.3; Eosinophils % 4.9; HCT 33.8 % (36.0-46.0); HGB 10.7 g/dL (11.2-15.7); Immature Grans % 0.3; Lymphocytes % 25.3; MCH 30.9 pg (27.0-33.0); MCHC 31.7 % (32.0-36.0); MCV 98 fL (80-95); MPV 9.3 fL (8.0-11.0); Monocytes % 7.2; Platelet Count 395 10^3/uL (130-400); RBC 3.46 10^6/uL (3.93-5.22); RDW 17.7 % (11.7-14.6); RDW-SD 63.7 fL; WBC 6.29 10^3/uL (4.4-10.8)
[2022-05-13 10:41] LABS: ALT 22 U/L (14-59); AST 22 U/L (15-37); Albumin 2.9 g/dL (3.4-5.0); Alkaline Phosphatase 115 U/L (46-116); Anion Gap 10.2 mmol/L (3-11); BUN 20 mg/dL (7-18); Bilirubin, Total 0.2 mg/dL (0.2-1.0); CO2 23.8 mmol/L (21.0-32.0); CREATININE 1.3 mg/dL (0.55-1.02); Calcium 10.2 mg/dL (8.5-10.1); Chloride 105 mmol/L (98-107); Estimated GFR 43.69 (mL/min/1.73m2); Glucose 134 mg/dL (74-106); Potassium 4.3 mmol/L (3.5-5.1); Sodium 139 mmol/L (136-145); Total Protein 8.1 g/dL (6.4-8.2)
== END 2022-05-13 13:29 | disposition home or self-care (01) ==
LOC: LBO 13:29
PROVIDERS: PCP Nurse Practitioner; Visit Provider Nurse Practitioner Family
DX: C34.12 Malignant neoplasm of upper lobe, left bronchus or lung (principal)
CPT/HCPCS: 36415; 80053; 85025

== ENCOUNTER 2022-05-16 00:40 | Outpatient (CLI) | payer MEDICARE, OTHER, SELFPAY ==
--- NOTE | 2022-05-16 | DI.MRI_ITS ---
Exam(s) MR BRAIN WO/W EXAM: MR BRAIN WO/W CLINICAL HISTORY: BRAIN METASTASES,C79.31,LUNG CA,S/P RADIATION,RESTAGING TECHNIQUE: Multiplanar multisequence MRI of the brain was performed. CONTRAST MATERIAL: IV Contrast: 13 mL of Dotarem contrast administered. COMPARISON: MR MR BRAIN WO/W from 04/05/2021 MR MR BRAIN WO/W from 10/16/2021 FINDINGS: The examination is limited due to patient motion artifact. VENTRICLES AND EXTRA AXIAL SPACES: Normal in size and morphology for the patient's age. HEMORRHAGE: None. CEREBRAL PARENCHYMA: No focus of restricted diffusion to suggest acute infarct. There are areas of hy perintense signal in the white matter consistent with small vessel ischemic disease. There has been interval development of several enhancing intracranial lesions consistent with progressive metastatic disease. The largest lesion measures 1.6 x 1.5 cm and is in heterogeneously enhancing and is locate d in the right cerebellum. The next largest lesion measures 1.2 x 1.0 cm and is located in the right parietal lobe. At least 7 other lesions are seen within the brain. The right parietal lesion shows the most significant edema. There is some effacement of the sulci but no midline shift results. Th ere is edema seen around the right cerebellar lesion but there is no midline shift. MIDLINE SHIFT: None. BRAINSTEM/CEREBELLUM: Normal. CALVARIUM: Normal. ENHANCEMENT: Please see the section entitled cerebral parenchyma. VISUALIZED PARANASAL SINUSES/MASTOIDS: Clear. [place]: Normal flow void. PITUITARY GLAND: Unchanged appearance. OTHER FINDINGS: IMPRESSION: Significant progression of intracranial metastatic disease since 10/16/2021. DATA REPOSITORY:
[2022-05-16 12:11] LABS: CREATININE 1.4 mg/dL (0.55-1.02); Estimated GFR 39.97 (mL/min/1.73m2)
[2022-05-16] MEDS: Normal Saline Flush 10 ML SYR IVP (12:16)
[2022-05-16] MEDS: Gadoterate meglumine 20 ML SYRINGE 13 ML IVP (12:17)
== END 2022-05-16 01:00 ==
LOC: DI 00:40
PROVIDERS: PCP Nurse Practitioner; Visit Provider Radiology Radiation Oncology
DX: C79.31 Secondary malignant neoplasm of brain (principal); C34.90 Malignant neoplasm of unspecified part of unspecified bronchus or lung
CPT/HCPCS: 70553; 82565

== ENCOUNTER 2022-05-19 03:08 | Outpatient (CLI) | payer MEDICARE, OTHER, SELFPAY ==
[2022-05-19 13:13] LABS: Abs Immature Grans 0.05 10^3/uL (0.0-0.06); Absolute Basophil Count 0.01 10^3/uL (0.0-0.2); Absolute Eosinophil Count 0.01 10^3/uL (0.0-0.7); Absolute Lymphocyte Count 1.49 10^3/uL (1.2-3.4); Absolute Monocyte Count 0.45 10^3/uL (0.1-0.8); Absolute Neutrophil Count 6.96 10^3/uL (1.2-6.7); Basophils % 0.1; Eosinophils % 0.1; HCT 33.2 % (36.0-46.0); HGB 10.5 g/dL (11.2-15.7); Immature Grans % 0.6; Lymphocytes % 16.6; MCH 31.2 pg (27.0-33.0); MCHC 31.6 % (32.0-36.0); MCV 99 fL (80-95); MPV 9.3 fL (8.0-11.0); Neutrophils % 77.6; Platelet Count 504 10^3/uL (130-400); RBC 3.37 10^6/uL (3.93-5.22); RDW 17.7 % (11.7-14.6); RDW-SD 64.1 fL; WBC 8.97 10^3/uL (4.4-10.8)
[2022-05-19 13:43] LABS: ALT 17 U/L (14-59); AST 10 U/L (15-37); Albumin 3.1 g/dL (3.4-5.0); Alkaline Phosphatase 132 U/L (46-116); BUN 35 mg/dL (7-18); Bilirubin, Total 0.2 mg/dL (0.2-1.0); CREATININE 1.3 mg/dL (0.55-1.02); Calcium 10.1 mg/dL (8.5-10.1); Chloride 102 mmol/L (98-107); Estimated GFR 43.69 (mL/min/1.73m2); FREE T4 0.89 ng/dL (0.76-1.46); Glucose 134 mg/dL (74-106); Magnesium 2.4 mg/dL (1.8-2.4); Potassium 4.3 mmol/L (3.5-5.1); Sodium 138 mmol/L (136-145); TSH 0.85 uIU/mL (0.36-3.74)
== END 2022-05-19 03:09 | disposition home or self-care (01) ==
PROVIDERS: Internal Medicine Medical Oncology; PCP Nurse Practitioner; Visit Provider Nurse Practitioner Family
DX: C34.12 Malignant neoplasm of upper lobe, left bronchus or lung (principal); C79.31 Secondary malignant neoplasm of brain; Z79.899 Other long term (current) drug therapy
CPT/HCPCS: 36415; 80053; 83735; 84439; 84443; 85025

== ENCOUNTER 2022-06-23 01:54 | Outpatient (CLI) | payer MEDICARE, OTHER, SELFPAY ==
[2022-06-23 09:23] LABS: Abs Immature Grans 0.07 10^3/uL (0.0-0.06); Absolute Basophil Count 0.04 10^3/uL (0.0-0.2); Absolute Eosinophil Count 0.02 10^3/uL (0.0-0.7); Absolute Lymphocyte Count 0.76 10^3/uL (1.2-3.4); Absolute Monocyte Count 0.26 10^3/uL (0.1-0.8); Absolute Neutrophil Count 4.52 10^3/uL (1.2-6.7); Basophils % 0.7; Eosinophils % 0.4; HCT 36.3 % (36.0-46.0); HGB 11.5 g/dL (11.2-15.7); Immature Grans % 1.2; Lymphocytes % 13.4; MCH 31.4 pg (27.0-33.0); MCHC 31.7 % (32.0-36.0); MCV 99 fL (80-95); MPV 8.8 fL (8.0-11.0); Monocytes % 4.6; Neutrophils % 79.7; Nucleated RBC 0.4 % (0.0-0.3); Platelet Count 250 10^3/uL (130-400); RBC 3.66 10^6/uL (3.93-5.22); RDW 20.2 % (11.7-14.6); RDW-SD 74.3 fL; WBC 5.67 10^3/uL (4.4-10.8)
[2022-06-23 09:34] LABS: Anisocytosis 2+; Diff Comment RBC Morph Reviewed
[2022-06-23 09:47] LABS: ALT 24 U/L (14-59); AST 18 U/L (15-37); Albumin 2.6 g/dL (3.4-5.0); Alkaline Phosphatase 140 U/L (46-116); Anion Gap 9.2 mmol/L (3-11); BUN 25 mg/dL (7-18); Bilirubin, Total 0.4 mg/dL (0.2-1.0); CO2 25.8 mmol/L (21.0-32.0); CREATININE 1.3 mg/dL (0.55-1.02); Calcium 9.2 mg/dL (8.5-10.1); Chloride 109 mmol/L (98-107); Estimated GFR 43.69 (mL/min/1.73m2); FREE T4 0.64 ng/dL (0.76-1.46); Glucose 167 mg/dL (74-106); Magnesium 2.1 mg/dL (1.8-2.4); Potassium 3.7 mmol/L (3.5-5.1); Sodium 144 mmol/L (136-145); TSH 2.76 uIU/mL (0.36-3.74); Total Protein 6.6 g/dL (6.4-8.2)
== END 2022-06-23 01:55 | disposition home or self-care (01) ==
LOC: LBO 01:54
PROVIDERS: PCP Nurse Practitioner; Visit Provider Internal Medicine Medical Oncology
DX: Z79.899 Other long term (current) drug therapy (principal); C34.12 Malignant neoplasm of upper lobe, left bronchus or lung
CPT/HCPCS: 36415; 80053; 83735; 84439; 84443; 85025

== ENCOUNTER 2022-06-27 00:52 | Outpatient (CLI) | payer MEDICARE, OTHER, SELFPAY ==
--- NOTE | 2022-06-27 | DI.CT_ITS ---
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 TECHNIQUE: Multi planar reconstructions were performed. CONTRAST MATERIAL: Omnipaque 350; 75 cc COMPARISON: CT CT CHEST WO from 07/24/[address] CHEST WO from 04/03/2022 FINDINGS: CHEST: LUNGS: Again noted is a chronic interstitial disease pattern. The spiculated nodular subpleural dens ity in left upper lobe exhibits similar size and appearance to the CT scan of 04/03/2022. The left l ower lobe density is less evident on the present study. No new significant left lung findings nor pl eural effusion. In the opposite-right lung the para-infrahilar infiltrate appears stable. However, peripherally in t he lower right upper lobe there is mild increasing infiltrate measuring 3 cm by 2.5 cm. Also mild in creased infiltrate in the posterior basal segment of the right lower lobe. No other new right lung f indings. No right pleural effusion. MEDIASTINUM: There is a decrease in the right paratracheal adenopathy. Also significant decrease in the subcarinal adenopathy seen on the most recent CT scan of 04/03/2022. There is presently no media stinal nor hilar adenopathy evident. No adenopathy in the anterior mediastinal fat. Thyroid gland n ormal size. Visualized thyroid unremarkable. CARDIAC: Heart size is normal. There is no pericardial effusion.Thoracic aorta caliber within normal limits. Incidentally noted is independent origin of the left vertebral artery off of the aortic arc h. VISUALIZED UPPER ABDOMEN:There are no significant adrenal masses. Spleen size normal. Partially vis ualized liver exhibits no lesions. OSSEOUS: There is a new superior endplate compression fracture of T7. Approximately 20 percent heigh t loss.. IMPRESSION: 1. Compared to the prior CT scan of 04/03/2022 the size of the left upper lobe infiltrate-mass is unc hanged. Left lower lobe finding has decreased. Right parahilar infiltrate is unchanged although the re is now increasing more peripheral infiltrate in the subpleural region of the right upper lobe. Al so mild infiltrate in the posterior basal segment of the right lower lobe. No pleural effusions on e ither side. 2. Significant decrease in amount of adenopathy. There is presently no adenopathy evident in the med iastinum nor in the hilar regions. 3. New compression fracture superior endplate of T7 with approximately 20 percent height loss. This was not evident on the prior March 2022 study. RADIATION DOSE DELIVERED: 366.12mGy.cm Total DLP DATA REPOSITORY: All CT scans at this facility are submitted to the National Radiology Data Registry (NRDR) Dose Index Registry (DIR) with the [employer] (ACR). RADIATION OPTIMIZATION: All CT scans at this facility use at least one of these dose optimization te chniques: automated exposure control; mA and/or kV adjustment per patient size (includes targeted exa ms where dose is matched to clinical indication); or iterative reconstruction.
[2022-06-27] MEDS: Normal Saline - Diluent 50 ML VIAL IJ (11:39)
[2022-06-27] MEDS: Omnipaque 350 MG/ML 500 ML BTL-Imaging package IJ (11:39)
[2022-06-27] MEDS: Normal Saline Flush 10 ML SYR IVP (11:42)
== END 2022-06-27 01:12 ==
LOC: DI 00:52
PROVIDERS: PCP Nurse Practitioner; Visit Provider Internal Medicine Medical Oncology
DX: C79.31 Secondary malignant neoplasm of brain (principal); C34.12 Malignant neoplasm of upper lobe, left bronchus or lung
CPT/HCPCS: 71260

== ENCOUNTER 2022-07-02 02:54 | Outpatient (CLI) | payer MEDICARE, OTHER, SELFPAY ==
[2022-07-02 09:59] LABS: Abs Immature Grans 0.16 10^3/uL (0.0-0.06); Absolute Basophil Count 0.07 10^3/uL (0.0-0.2); Absolute Eosinophil Count 0.04 10^3/uL (0.0-0.7); Absolute Lymphocyte Count 0.94 10^3/uL (1.2-3.4); Absolute Monocyte Count 0.26 10^3/uL (0.1-0.8); Absolute Neutrophil Count 7.07 10^3/uL (1.2-6.7); Basophils % 0.8; Eosinophils % 0.5; HGB 9.8 g/dL (11.2-15.7); Immature Grans % 1.9; MCH 30.9 pg (27.0-33.0); MCHC 30.6 % (32.0-36.0); MCV 101 fL (80-95); MPV 9.9 fL (8.0-11.0); Neutrophils % 82.8; Platelet Count 288 10^3/uL (130-400); RBC 3.17 10^6/uL (3.93-5.22); RDW 19.7 % (11.7-14.6); RDW-SD 73.6 fL; WBC 8.54 10^3/uL (4.4-10.8)
[2022-07-02 10:36] LABS: ALT 14 U/L (14-59); AST 13 U/L (15-37); Albumin 2.3 g/dL (3.4-5.0); Alkaline Phosphatase 152 U/L (46-116); Anion Gap 9.4 mmol/L (3-11); BUN 16 mg/dL (7-18); Bilirubin, Total 0.3 mg/dL (0.2-1.0); CO2 25.6 mmol/L (21.0-32.0); CREATININE 1.3 mg/dL (0.55-1.02); Calcium 10.1 mg/dL (8.5-10.1); Chloride 109 mmol/L (98-107); Estimated GFR 43.69 (mL/min/1.73m2); FREE T4 0.83 ng/dL (0.76-1.46); Glucose 146 mg/dL (74-106); Magnesium 2.4 mg/dL (1.8-2.4); Potassium 3.9 mmol/L (3.5-5.1); Sodium 144 mmol/L (136-145); TSH 1.92 uIU/mL (0.36-3.74); Total Protein 7.7 g/dL (6.4-8.2)
== END 2022-07-02 02:55 | disposition home or self-care (01) ==
LOC: LBO 02:54
PROVIDERS: PCP Nurse Practitioner; Visit Provider Internal Medicine Medical Oncology
DX: C34.12 Malignant neoplasm of upper lobe, left bronchus or lung (principal); C79.31 Secondary malignant neoplasm of brain; Z79.899 Other long term (current) drug therapy
CPT/HCPCS: 36415; 80053; 83735; 84439; 84443; 85025

== ENCOUNTER 2022-07-09 02:44 | Outpatient (CLI) | payer MEDICARE, OTHER, SELFPAY ==
[2022-07-09 08:23] LABS: Abs Immature Grans 0.26 10^3/uL (0.0-0.06); Absolute Basophil Count 0.09 10^3/uL (0.0-0.2); Absolute Eosinophil Count 0.17 10^3/uL (0.0-0.7); Absolute Monocyte Count 0.57 10^3/uL (0.1-0.8); Absolute Neutrophil Count 3.91 10^3/uL (1.2-6.7); Basophils % 1.5; Eosinophils % 2.8; HGB 8.9 g/dL (11.2-15.7); Immature Grans % 4.3; MCH 30.9 pg (27.0-33.0); MCHC 30.7 % (32.0-36.0); MCV 101 fL (80-95); MPV 9.5 fL (8.0-11.0); Monocytes % 9.3; Neutrophils % 64.1; RBC 2.88 10^6/uL (3.93-5.22); RDW 18.7 % (11.7-14.6); RDW-SD 68.7 fL
[2022-07-09 08:51] LABS: Diff Comment Diff Reviewed
[2022-07-09 08:52] LABS: Hypochromasia 1+; Platelet Count 444 10^3/uL (130-400)
[2022-07-09 08:59] LABS: ALT 11 U/L (14-59); AST 19 U/L (15-37); Albumin 1.9 g/dL (3.4-5.0); Alkaline Phosphatase 127 U/L (46-116); Anion Gap 9.8 mmol/L (3-11); BUN 29 mg/dL (7-18); Bilirubin, Total 0.2 mg/dL (0.2-1.0); CO2 24.2 mmol/L (21.0-32.0); CREATININE 2.3 mg/dL (0.55-1.02); Calcium 9.9 mg/dL (8.5-10.1); Chloride 110 mmol/L (98-107); Estimated GFR 22.03 (mL/min/1.73m2); FREE T4 0.92 ng/dL (0.76-1.46); Glucose 120 mg/dL (74-106); Magnesium 2.6 mg/dL (1.8-2.4); Potassium 4.5 mmol/L (3.5-5.1); Sodium 144 mmol/L (136-145); TSH 3.16 uIU/mL (0.36-3.74); Total Protein 7.3 g/dL (6.4-8.2)
== END 2022-07-09 02:45 | disposition home or self-care (01) ==
PROVIDERS: PCP Nurse Practitioner; Visit Provider Internal Medicine Medical Oncology
DX: Z79.899 Other long term (current) drug therapy; I89.0 Lymphedema, not elsewhere classified; C34.12 Malignant neoplasm of upper lobe, left bronchus or lung
CPT/HCPCS: 36415; 80053; 82565; 83735; 84439; 84443; 85025

== ENCOUNTER 2022-07-09 17:50 | Outpatient (REF) | payer MEDICARE, OTHER, SELFPAY ==
[2022-07-09 16:33] LABS: Bilirubin Negative (Negative); Blood Negative (Negative); Clarity Sl Cloudy (Clear); Glucose Negative (Negative); Ketones 15 mg/dL (Negative); Leukocyte Esterase Negative (Negative); Nitrite Negative (Negative); Specific Gravity >= 1.030 (1.005-1.025); Urobilinogen 0.2 mg/dL (Up to 0.2); pH 5.5 (5-8)
[2022-07-09 16:47] LABS: Epithelial Cells Many HPF (Negative); RBC 0-2 HPF (0-2); WBC 0-2 HPF (0-5)
[2022-07-09 16:48] LABS: Bacteria Few HPF (Negative); C & S Indicated? No/Sq. Contamination; Casts 0-2 Hyaline LPF (Negative); Crystals Rare Calcium Oxalate HPF (Negative); Mucus Negative (Negative); Other Cells Rare Yeast (Negative)
== END 2022-07-09 17:51 | disposition home or self-care (01) ==
LOC: LBN 17:50
PROVIDERS: PCP Nurse Practitioner; Visit Provider Nurse Practitioner Family
DX: R82.998 Other abnormal findings in urine (principal); R79.89 Other specified abnormal findings of blood chemistry
CPT/HCPCS: 81003; 81015

== ENCOUNTER 2022-07-16 02:17 | Outpatient (CLI) | payer MEDICARE, OTHER, SELFPAY ==
[2022-07-16 12:58] LABS: Abs Immature Grans 0.12 10^3/uL (0.0-0.06); Absolute Basophil Count 0.11 10^3/uL (0.0-0.2); Absolute Lymphocyte Count 1.56 10^3/uL (1.2-3.4); Absolute Monocyte Count 0.77 10^3/uL (0.1-0.8); Absolute Neutrophil Count 5.32 10^3/uL (1.2-6.7); Basophils % 1.4; Eosinophils % 2.5; HCT 27.9 % (36.0-46.0); HGB 8.4 g/dL (11.2-15.7); Immature Grans % 1.5; Lymphocytes % 19.3; MCH 30.9 pg (27.0-33.0); MCHC 30.1 % (32.0-36.0); MCV 103 fL (80-95); MPV 8.9 fL (8.0-11.0); Monocytes % 9.5; Neutrophils % 65.8; Platelet Count 510 10^3/uL (130-400); RBC 2.72 10^6/uL (3.93-5.22); RDW-SD 72.5 fL; WBC 8.08 10^3/uL (4.4-10.8)
[2022-07-16 13:11] LABS: Bilirubin Negative (Negative); Blood Trace-intact (Negative); Clarity Sl Cloudy (Clear); Glucose Negative (Negative); Ketones Trace mg/dL (Negative); Leukocyte Esterase Negative (Negative); Nitrite Negative (Negative); Specific Gravity >= 1.030 (1.005-1.025); Urobilinogen 0.2 mg/dL (Up to 0.2); pH 5.5 (5-8)
[2022-07-16 13:21] LABS: ALT 9 U/L (14-59); AST 15 U/L (15-37); Albumin 1.9 g/dL (3.4-5.0); Alkaline Phosphatase 112 U/L (46-116); Anion Gap 4.5 mmol/L (3-11); BUN 29 mg/dL (7-18); Bilirubin, Total 0.2 mg/dL (0.2-1.0); CO2 26.5 mmol/L (21.0-32.0); CREATININE 1.9 mg/dL (0.55-1.02); Calcium 9.4 mg/dL (8.5-10.1); Chloride 111 mmol/L (98-107); Estimated GFR 27.71 (mL/min/1.73m2); FREE T4 0.74 ng/dL (0.76-1.46); Glucose 108 mg/dL (74-106); Magnesium 2.8 mg/dL (1.8-2.4); Potassium 5.6 mmol/L (3.5-5.1); Sodium 142 mmol/L (136-145); TSH 2.86 uIU/mL (0.36-3.74); Total Protein 6.9 g/dL (6.4-8.2)
[2022-07-16 13:24] LABS: Bacteria Moderate HPF (Negative); Casts Negative LPF (Negative); Crystals Negative HPF (Negative); Epithelial Cells Many HPF (Negative); Mucus Trace (Negative); WBC 0-2 HPF (0-5)
[2022-07-16 13:25] LABS: C & S Indicated? No/Sq. Contamination
[2022-07-16 13:29] LABS: Diff Comment Diff Reviewed; Hypochromasia 1+
== END 2022-07-16 02:18 | disposition home or self-care (01) ==
LOC: LBO 02:18
PROVIDERS: PCP Nurse Practitioner; Visit Provider Internal Medicine Medical Oncology
DX: R79.89 Other specified abnormal findings of blood chemistry (principal); C34.12 Malignant neoplasm of upper lobe, left bronchus or lung; Z79.899 Other long term (current) drug therapy; C79.31 Secondary malignant neoplasm of brain; R82.998 Other abnormal findings in urine
CPT/HCPCS: 36415; 80053; 81003; 81015; 83735; 84439; 84443; 85025

== ENCOUNTER 2022-07-28 02:27 | Outpatient (CLI) | payer MEDICARE, OTHER, SELFPAY ==
[2022-07-28 10:05] LABS: Abs Immature Grans 0.07 10^3/uL (0.0-0.06); Absolute Basophil Count 0.12 10^3/uL (0.0-0.2); Absolute Eosinophil Count 0.31 10^3/uL (0.0-0.7); Absolute Lymphocyte Count 1.26 10^3/uL (1.2-3.4); Absolute Monocyte Count 0.56 10^3/uL (0.1-0.8); Absolute Neutrophil Count 5.13 10^3/uL (1.2-6.7); Basophils % 1.6; Eosinophils % 4.2; HCT 28.1 % (36.0-46.0); HGB 8.5 g/dL (11.2-15.7); Immature Grans % 0.9; Lymphocytes % 16.9; MCH 31.5 pg (27.0-33.0); MCHC 30.2 % (32.0-36.0); MCV 104 fL (80-95); MPV 9.3 fL (8.0-11.0); Monocytes % 7.5; Neutrophils % 68.9; Platelet Count 380 10^3/uL (130-400); RDW-SD 67.9 fL; WBC 7.45 10^3/uL (4.4-10.8)
[2022-07-28 11:02] LABS: AST 17 U/L (15-37); Alkaline Phosphatase 91 U/L (46-116); BUN 21 mg/dL (7-18); Bilirubin, Total 0.2 mg/dL (0.2-1.0); CREATININE 2.2 mg/dL (0.55-1.02); Calcium 9.6 mg/dL (8.5-10.1); Chloride 111 mmol/L (98-107); Estimated GFR 23.24 (mL/min/1.73m2); Glucose 158 mg/dL (74-106); Magnesium 2.5 mg/dL (1.8-2.4); Potassium 3.7 mmol/L (3.5-5.1); Sodium 147 mmol/L (136-145); TSH 3.43 uIU/mL (0.36-3.74); Total Protein 7.1 g/dL (6.4-8.2)
[2022-07-28 11:21] LABS: ALT < 6 U/L (14-59)
[2022-07-28 12:12] LABS: FREE T4 0.87 ng/dL (0.76-1.46)
== END 2022-07-28 02:28 | disposition home or self-care (01) ==
LOC: LBO 02:27
PROVIDERS: PCP Nurse Practitioner; Visit Provider Internal Medicine Medical Oncology
DX: C34.12 Malignant neoplasm of upper lobe, left bronchus or lung (principal); C79.31 Secondary malignant neoplasm of brain; Z79.899 Other long term (current) drug therapy
CPT/HCPCS: 36415; 80053; 83735; 84439; 84443; 85025

== ENCOUNTER 2022-08-11 01:23 | Outpatient (CLI) | payer MEDICARE, OTHER, SELFPAY ==
--- NOTE | 2022-08-11 | DI.MRI_ITS ---
Exam(s) MR BRAIN WO/W EXAM: MR BRAIN WO/W CLINICAL HISTORY: SECONDARY NEOPLASM OF BRAIN,C79.31,S/P RADIOTHERAPY,EVAL BRAIN METS TECHNIQUE: Multiplanar multisequence MRI of the brain was performed. CONTRAST MATERIAL: IV Contrast: 7 mL of Dotarem contrast administered. COMPARISON: MR MR BRAIN WO/W from 05/16/2022 FINDINGS: The examination is limited due to patient motion artifact. VENTRICLES AND EXTRA AXIAL SPACES: Normal in size and morphology for the patient's age. HEMORRHAGE: None. CEREBRAL PARENCHYMA: No focus of restricted diffusion to suggest acute infarct. No space-occupying le salma identified. There are multiple areas of hyperintense signal seen in the white matter on the FLAI R and T2 weighted images consistent with small vessel ischemic disease. MIDLINE SHIFT: None. BRAINSTEM/CEREBELLUM: Normal. CALVARIUM: Normal. ENHANCEMENT: The ring enhancing lesion in the left thalamus is faintly visualized on the current exam ination measures 4 mm. This previously measured 5 mm. The other enhancing lesions are no longer vis ualized. No new lesions are appreciated. VISUALIZED PARANASAL SINUSES/MASTOIDS: Clear. [place]: Normal flow void. PITUITARY GLAND: There is an empty sella. OTHER FINDINGS: IMPRESSION: 1. A solitary faintly enhancing lesion in the left thalamus remains. It is smaller in size compared to the prior examination. The other enhancing lesions are no longer visualized. 2. Age-related cerebral atrophy and small vessel ischemic disease. DATA REPOSITORY:
[2022-08-11 08:10] LABS: HCT 31.8 % (36.0-46.0); MCH 31.9 pg (27.0-33.0); MCHC 31.4 % (32.0-36.0); MCV 102 fL (80-95); Platelet Count 300 10^3/uL (130-400); RBC 3.13 10^6/uL (3.93-5.22); RDW 16.6 % (11.7-14.6); RDW-SD 62.5 fL; WBC 9.19 10^3/uL (4.4-10.8)
[2022-08-11 08:34] LABS: ALT 21 U/L (14-59); AST 16 U/L (15-37); Albumin 1.9 g/dL (3.4-5.0); Alkaline Phosphatase 64 U/L (46-116); Anion Gap 8.4 mmol/L (3-11); BUN 22 mg/dL (7-18); Bilirubin, Total 0.2 mg/dL (0.2-1.0); CO2 26.6 mmol/L (21.0-32.0); CREATININE 1.7 mg/dL (0.55-1.02); Calcium 9.3 mg/dL (8.5-10.1); Chloride 105 mmol/L (98-107); Estimated GFR 31.66 (mL/min/1.73m2); FREE T4 0.61 ng/dL (0.76-1.46); Glucose 198 mg/dL (74-106); Magnesium 2.1 mg/dL (1.8-2.4); Sodium 140 mmol/L (136-145); Total Protein 6.1 g/dL (6.4-8.2)
[2022-08-11] MEDS: Normal Saline Flush 10 ML SYR IVP (09:03)
[2022-08-11] MEDS: Gadoterate meglumine 20 ML SYRINGE 7 ML IVP (09:04)
[2022-08-11 09:18] LABS: Abs Immature Grans 0.06 10^3/uL (0.0-0.06); Absolute Basophil Count 0.01 10^3/uL (0.0-0.2); Absolute Eosinophil Count 0.05 10^3/uL (0.0-0.7); Absolute Lymphocyte Count 1.46 10^3/uL (1.2-3.4); Absolute Monocyte Count 0.46 10^3/uL (0.1-0.8); Absolute Neutrophil Count 7.23 10^3/uL (1.2-6.7); Basophils % 0.1; Eosinophils % 0.5; Immature Grans % 0.6; Lymphocytes % 15.7; Neutrophils % 78.1
== END 2022-08-11 01:43 ==
LOC: DI 01:24
PROVIDERS: PCP Nurse Practitioner; Visit Provider Preventive Medicine Undersea and Hyperbaric Medicine
DX: Z79.899 Other long term (current) drug therapy (principal); G93.89 Other specified disorders of brain; C79.31 Secondary malignant neoplasm of brain; G31.1 Senile degeneration of brain, not elsewhere classified
CPT/HCPCS: 36415; 70553; 80053; 85027; 83735; 84439; 84443; 85007

== ENCOUNTER 2022-09-11 02:08 | Outpatient (CLI) | payer MEDICARE, OTHER, SELFPAY ==
[2022-09-11 08:24] LABS: Abs Immature Grans 0.06 10^3/uL (0.0-0.06); Absolute Basophil Count 0.04 10^3/uL (0.0-0.2); Absolute Eosinophil Count 0.12 10^3/uL (0.0-0.7); Absolute Lymphocyte Count 1.14 10^3/uL (1.2-3.4); Absolute Monocyte Count 0.56 10^3/uL (0.1-0.8); Absolute Neutrophil Count 4.16 10^3/uL (1.2-6.7); Basophils % 0.7; HCT 24.9 % (36.0-46.0); HGB 7.6 g/dL (11.2-15.7); Lymphocytes % 18.8; MCH 31.9 pg (27.0-33.0); MCHC 30.5 % (32.0-36.0); MCV 105 fL (80-95); MPV 9.2 fL (8.0-11.0); Monocytes % 9.2; Neutrophils % 68.3; Platelet Count 351 10^3/uL (130-400); RBC 2.38 10^6/uL (3.93-5.22); RDW 16.3 % (11.7-14.6); RDW-SD 62.4 fL; WBC 6.08 10^3/uL (4.4-10.8)
[2022-09-11] MEDS: Barium Sulfate 2% W/V-Berry Smoothie 450 ML BTL 900 ML PO (08:32)
[2022-09-11 08:48] LABS: ALT 11 U/L (14-59); AST 14 U/L (15-37); Albumin 1.9 g/dL (3.4-5.0); Alkaline Phosphatase 80 U/L (46-116); Anion Gap 8.1 mmol/L (3-11); BUN 21 mg/dL (7-18); Bilirubin, Total 0.2 mg/dL (0.2-1.0); CO2 28.9 mmol/L (21.0-32.0); CREATININE 1.7 mg/dL (0.55-1.02); Calcium 8.9 mg/dL (8.5-10.1); Chloride 110 mmol/L (98-107); Estimated GFR 31.66 (mL/min/1.73m2); FREE T4 0.72 ng/dL (0.76-1.46); Glucose 88 mg/dL (74-106); Magnesium 2.4 mg/dL (1.8-2.4); Potassium 3.9 mmol/L (3.5-5.1); Sodium 147 mmol/L (136-145); TSH 3.92 uIU/mL (0.36-3.74); Total Protein 6.1 g/dL (6.4-8.2)
--- NOTE | 2022-09-11 10:00 | DI.CT_ITS ---
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 TECHNIQUE: Imaging Protocol: Axial computed tomography images with coronal and sagittal reformatted images were created and reviewed CONTRAST MATERIAL: Intravenous: Omnipaque 350 Contrast volume:100 ml Oral: yes COMPARISON: CT CT CHEST W from 12/26/[address] ABDOMEN PELVIS W from 01/08/[address] CHEST WO from 02/03/[address] CHEST WO from 04/03/[address] CHEST W from 06/27/2022 FINDINGS: CHEST: Tracheobronchial tree: Patent where visualized. Pulmonary parenchyma: Stable size of anterior left upper lobe spiculated nodule. Improvement in prev iously noted densities at the right lung base. Chronic interstitial changes. Pleura: No effusion or pneumothorax. Lymph nodes: Interval increase in hilar adenopathy, the largest on the left measuring 2 cm and the la rgest on the right in the inferior hilar region measuring 1.7 cm. No mediastinal adenopathy. Aorta: Thoracic portion non-dilated. Heart: Normal size. No pericardial effusion. Bones: Bones appear osteoporotic. Old right rib fractures. Stable T7 compression fracture. No new compression fractures. No lytic or blastic lesions visible. ABDOMEN: Liver: Normal density. No measurable mass. Gallbladder and biliary tract: No radiodense calculus or dilation. Pancreas: Normal density, no abnormal calcifications or inflammatory process. Spleen: Normal. Kidneys: Normal size, contour and axis. No radiodense stones or obstructive uropathy. Stable renal c ysts. No suspicious masses seen. Adrenal glands: 2 centimeter adrenal mass versus adjacent lymph node. Aorta: Atherosclerotic changes. Stable appearance abdominal aortic aneurysm. Lymph nodes: Adenopathy now seen in the region of the cinthia hepatis, portacaval and celiac axis with the largest node measuring 2.7 cm . Past para-aortic nodes also seen. Multiple nodes noted along th e bilateral iliac chains, the larger on the left which measures 3 cm transverse. Right inguinal parker opathy with largest node 2.5 cm. Scattered mesenteric lymph nodes also present. Soft tissues: Unremarkable. PELVIS: Bladder: Symmetric distention, no gross wall thickening. Bowel: No obstruction or bowel wall thickening. Peritoneal cavity: No ascites, collection or mesenteric inflammatory response. Bones: The bones appear osteoporotic. New moderate to severe compression fracture of L3. No underly ing mass is visible. Degenerative disc changes and facet degenerative changes as well as degenerativ e changes in the hips are noted. Reproductive organs: Within normal limits. IMPRESSION: Chest: Interval increase in size of bilateral hilar adenopathy. Stable left upper lobe spiculated no dule. No new pulmonary findings. Abdomen pelvis: New extensive abdominal and pelvic adenopathy. New L3 compression fracture. Question of left adrenal metastasis versus adjacent lymph node. RADIATION DOSE DELIVERED: 1,209.1mGy.cm Total DLP DATA REPOSITORY: All CT scans at this facility are submitted to the National Radiology Data Registry (NRDR) Dose Index Registry (DIR) with the [employer] (ACR). RADIATION OPTIMIZATION: All CT scans at this facility use at least one of these dose optimization te chniques: automated exposure control; mA and/or kV adjustment per patient size (includes targeted exa ms where dose is matched to clinical indication); or iterative reconstruction.
[2022-09-11] MEDS: Normal Saline - Diluent 50 ML VIAL IJ (10:06)
[2022-09-11] MEDS: Omnipaque 350 MG/ML 500 ML BTL-Imaging package IJ (10:07)
[2022-09-11] MEDS: Normal Saline Flush 10 ML SYR IVP (10:09)
== END 2022-09-11 02:28 ==
LOC: DI 02:10
PROVIDERS: PCP Nurse Practitioner; Visit Provider Internal Medicine Medical Oncology
DX: C34.12 Malignant neoplasm of upper lobe, left bronchus or lung (principal); C79.31 Secondary malignant neoplasm of brain; R59.0 Localized enlarged lymph nodes; M81.0 Age-related osteoporosis without current pathological fracture; R91.8 Other nonspecific abnormal finding of lung field; Z79.899 Other long term (current) drug therapy
CPT/HCPCS: 36415; 74177; 80053; 71260; 83735; 84439; 84443; 85025